=== PATIENT | female | born 1930 | race Caucasian/White ===

== ENCOUNTER 2016-08-28 17:47 | Emergency (ER) | payer MEDICARE, OTHER ==
[2016-08-28 19:20] LABS: BASO % 0.8 % (0-6); EOS % 1.2 % (0-6); GRAN % 59.6 % (47-80); HEMATOCRIT 36.8 % (35.0-47.0); HEMOGLOBIN 11.8 gm/dl (11.6-16.0); LYMPH % 29.3 % (16-45); MEAN CELL VOLUME 84.8 fl (81-97); MEAN CORPUSCULAR HEMOGLOBIN 27.2 pg (27-33); MEAN CORPUSCULAR HGB CONC 32.1 g/dl (32-36); MEAN PLATELET VOLUME 9.9 fl (7.4-10.4); MONO % 9.1 % (0-9); PLATELET COUNT 230 K/uL (130-400); RED BLOOD COUNT 4.34 M/uL (3.80-5.40); RED CELL DISTRIBUTION WIDTH 14.2 % (11.5-14.5); WHITE BLOOD COUNT W/O DIFF 8.4 K/uL (4.2-12.2)
[2016-08-28 19:29] LABS: ALB/GLOB RATIO 1.5 (1.1-1.8); ALBUMIN 4.4 gm/dL (3.5-5.0); ALKALINE PHOSPHATASE 73 U/L (38-126); ALT/SGPT 31 U/L (9-52); AST/SGOT 20 U/L (14-36); BILIRUBIN,TOTAL 0.53 mg/dL (0.2-1.3); BLOOD UREA NITROGEN 14 mg/dL (7-17); CREATININE 0.6 mg/dL (0.52-1.04); EST GLOMERULAR FILTRATION RATE > 60 ml/min; GLUCOSE,RANDOM 86 mg/dL (70-110); TOTAL PROTEIN 7.4 gm/dL (6.3-8.2)
--- NOTE | 2016-08-28 21:05 | Emergency Department Record ---
History of Present Illness - General Chief complaint: Edema Stated complaint: BRUISING/SWELLING Time Seen by Provider: 08/28/16 18:30 Source: Patient Mode of Arrival: Wheelchair Limitations: No limitations - History of Present Illness Initial comments: pt found her l foot to be bruised and is unsure how it happened. her r foot has been swelling as well. pt also states her pneumonia is much better MD Complaint: Extremity pain, Extremity swelling Onset/Timin -: Month(s) History of Same: Yes Improves with: Nothing Worsens with: Weight bearing - Related Data Home Medications Medication Instructions Recorded Confirmed Last Taken Amlodipine Besylate [Norvasc] 5 mg PO BID 11/17/13 08/28/16 08/28/16 Digoxin [Lanoxin] 125 mcg PO DAILY 11/17/13 08/28/16 08/28/16 Levothyroxine Sodium [Synthroid] 25 mcg PO DAILYTHY 11/17/13 08/28/16 08/28/16 Lisinopril [Prinivil] 20 mg PO BID 11/17/13 08/28/16 08/28/16 Memantine HCl [Namenda Xr] 28 mg PO DAILY 11/17/13 08/28/16 08/28/16 Meloxicam [Mobic] 15 mg PO DAILY 03/05/14 08/28/16 08/28/16 Metoprolol Succinate [Toprol Xl] 100 mg PO DAILY 02/15/15 08/28/16 08/28/16 Aspirin [Aspir-Low] 81 mg PO DAILY 08/28/16 08/28/16 08/28/16 Allergies Allergy/AdvReac Type Severity Reaction Status Date / Time erythromycin base AdvReac DIARRHEA Verified 01/06/15 14:22 [Erythromycin Base] morphine AdvReac ALTERED Verified 01/06/15 14:22 MENTAL STATUS Travel Screening - Travel/Exposure Within Last 30 Days Have you traveled within the last 30 days?: No - Travel/Exposure Within Last Year Have you traveled outside the [place] in the last year?: No - Additonal Travel Details Have you been exposed to anyone with a communicable illness?: No - Travel Symptoms Symptom Screening: None Review of Systems Reviewed: No additional complaints except as noted below Constitutional: Reports: As per HPI. Denies: Chills, Fever, Malaise, Night sweats, Weakness, Weight change Eyes: Reports: As per HPI. Denies: Eye discharge, Eye pain, Photophobia, Vision change ENT: Reports: As per HPI. Denies: Congestion, Dental pain, Ear pain, Epistaxis , Hearing loss, Throat pain Respiratory: Reports: As per HPI. Denies: Cough, Dyspnea, Hemoptysis, Stridor, Wheezes Cardiovascular: Reports: As per HPI. Denies: Arrhythmia, Chest pain, Dyspnea on exertion, Edema, Murmurs, Orthopnea, Palpitations, Paroxysmal nocturnal dyspnea, Rheumatic Fever, Syncope Endocrine: Reports: As per HPI. Denies: Fatigue, Heat or cold intolerance, Polydipsia, Polyuria Gastrointestinal: Reports: As per HPI. Denies: Abdominal pain, Constipation, Diarrhea, Hematemesis, Hematochezia, Melena, Nausea, Vomiting Genitourinary: Reports: As per HPI. Denies: Abnormal menses, Discharge, Dyspareunia, Dysuria, Frequency, Hematuria, Incontinence, Retention, Urgency Musculoskeletal: Reports: As per HPI. Denies: Arthralgia, Back pain, Gout, Joint swelling, Myalgia, Neck pain Skin: Reports: As per HPI. Denies: Bruising, Change in color, Change in hair/ nails, Lesions, Pruritus, Rash Neurological: Reports: As per HPI. Denies: Abnormal gait, Confusion, Headache, Numbness, Paresthesias, Seizure, Tingling, Tremors, Vertigo, Weakness Psychiatric: Reports: As per HPI. Denies: Anxiety, Auditory hallucinations, Depression, Homicidal thoughts, Suicidal thoughts, Visual hallucinations Hematological/Lymphatic: Reports: As per HPI. Denies: Anemia, Blood Clots, Easy bleeding, Easy bruising, Swollen glands Past Medical History - SOCIAL HISTORY Smoking Status: Former smoker Alcohol Use: None Drug Use: None - RESPIRATORY Hx Respiratory Disorders: Yes Hx COPD: Yes Hx Pneumonia: Yes (admitted 11/09/13) - CARDIOVASCULAR Hx Cardio Disorders: Yes Hx Chest Pain: Yes Hx Hypertension: Yes Hx Irregular Heartbeat: Yes (a-fib) Comment:: leaky valve - NEURO Hx Neuro Disorders: Yes Hx Dementia: Yes - GI Hx GI Disorders: Yes Hx Diverticulitis: Yes - Hx Genitourinary Disorders: Yes Hx UTI: Yes - ENDOCRINE Hx Endocrine Disorders: Yes Hx Diabetes: Yes (hypoglycemia) Hx Thyroid Disease: Yes - MUSCULOSKELETAL Hx Musculoskeletal Disorders: No - PSYCH Hx Psych Problems: No - HEMATOLOGY/ONCOLOGY Hx Hematology/Oncology Disorders: Yes Hx Anemia: Yes Family Medical History Any Significant Family History?: No Hx Dementia: Brother/Sister *Dementia Comment: Brother Hx HTN: Brother/Sister Physical Exam - General General Appearance: Alert, Oriented x3, Cooperative, Mild distress - Head Head exam: Normal inspection - Eye Eye exam: Normal appearance, PERRL, EOMI Pupils: Normal accommodation - ENT ENT exam: Normal exam, Mucous membranes moist, Normal external ear exam, Normal orophraynx, TM's normal bilaterally Ear exam: Normal external inspection. negative: External canal tenderness Nasal Exam: Normal inspection. negative: Discharge, Sinus tenderness Mouth exam: Normal external inspection, Tongue normal Teeth exam: Normal inspection. negative: Dental caries Throat exam: Normal inspection. negative: Tonsillar erythema, Tonsillar exudate - Neck Neck exam: Normal inspection, Full ROM. negative: Tenderness - Respiratory Respiratory exam: Normal lung sounds bilaterally, Other (scattered crackles). negative: Respiratory distress - Cardiovascular Cardiovascular Exam: Regular rate, Normal rhythm, Normal heart sounds - GI/Abdominal GI/Abdominal exam: Soft, Normal bowel sounds. negative: Tenderness - Rectal Rectal exam: Deferred - exam: Deferred - Extremities Extremities exam: Normal inspection, Full ROM, Normal capillary refill, Pedal edema, Tenderness Image of Feet: 1 - ecchymosis 2 - pedal edema - Back Back exam: Reports: Normal inspection, Full ROM. Denies: Muscle spasm, Rash noted, Tenderness - Neurological Neurological exam: Alert, CN II-XII intact, Normal gait, Oriented X3 - Psychiatric Psychiatric exam: Normal affect, Normal mood - Skin Skin exam: Dry, Intact, Normal color, Warm Course Vital Signs 08/28/16 08/28/16 18:14 20:32 Temperature 98.0 F 98.0 F Pulse Rate 58 L Pulse Rate [ 63 Pulse Ox Probe] Respiratory 18 18 Rate Blood Pressure 178/79 Blood Pressure 148/66 [Left Arm] Pulse Ox 100 97 Medical Decision Making - Lab Data Result diagrams: 08/28/16 18:34 08/28/16 18:34 Lab Results 08/28/16 08/28/16 Range/Units 18:34 18:34 WBC 8.4 (4.2-12.2) K/uL RBC 4.34 (3.80-5.40) M/uL Hgb 11.8 (11.6-16.0) gm/dl Hct 36.8 (35.0-47.0) % MCV 84.8 (81-97) fl MCH 27.2 (27-33) pg MCHC 32.1 (32-36) g/dl RDW 14.2 (11.5-14.5) % Plt Count 230 (130-400) K/uL MPV 9.9 (7.4-10.4) fl Gran % 59.6 (47-80) % Lymphocytes % 29.3 (16-45) % Monocytes % 9.1 H (0-9) % Eosinophils % 1.2 (0-6) % Basophils % 0.8 (0-6) % Sodium 129 L (136-145) mmol/L Potassium 4.3 (3.5-5.1) mmol/L Chloride 94 L (98-107) mmol/L Carbon Dioxide 25.0 (22-30) mmol/L Anion Gap 10.0 (7-16) BUN 14 (7-17) mg/dL Creatinine 0.6 (0.52-1.04) mg/dL Estimated GFR > 60 ml/min Random Glucose 86 (70-110) mg/dL Calcium 9.2 (8.5-10.1) mg/dL Total Bilirubin 0.53 (0.2-1.3) mg/dL AST 20 (14-36) U/L ALT 31 (9-52) U/L Alkaline Phosphatase 73 (38-126) U/L Total Protein 7.4 (6.3-8.2) gm/dL Albumin 4.4 (3.5-5.0) gm/dL Globulin 3.0 (1.4-4.8) gm/dL Albumin/Globulin Ratio 1.5 (1.1-1.8) Disposition Disposition: Discharge Clinical Impression: Pedal edema Contusion Qualifiers: Encounter type: initial encounter Contusion area: foot Laterality: right Qualified Code(s): S90.31XA - Contusion of right foot, initial encounter Disposition: Home, Self-Care Condition: (1) Good Instructions: Leg Edema (ED), Contusion in Adults (ED) Additional Instructions: follow up with family doctor. return sooner if worse. elevate feet. warm soaks r foot Forms: Patient Portal Access
== END 2016-08-28 21:18 | disposition home or self-care (01) ==
LOC: ER 17:47
DX: S90.31XA Contusion of right foot, initial encounter (principal); R60.0 Localized edema; I48.91 Unspecified atrial fibrillation; J44.9 Chronic obstructive pulmonary disease, unspecified; I10 Essential (primary) hypertension; Z87.891 Personal history of nicotine dependence; X58.XXXA Exposure to other specified factors, initial encounter
CPT/HCPCS: 80053; 85025; 99283; 99284

== ENCOUNTER 2016-12-22 13:01 | Emergency (ER) | payer MEDICARE, OTHER ==
--- NOTE | 2016-12-22 13:15 | Emergency Department Record ---
History of Present Illness - General Chief complaint: Weakness Stated complaint: WEAKNESS Time Seen by Provider: 12/22/16 13:08 Source: Patient, Family Mode of Arrival: Wheelchair Limitations: No limitations - History of Present Illness Initial comments: 86 yo female presents not feeling well for several weeks. She feels tired and weak all over. She feels short of breath. She denies any chest pain. She reports a recent admission to [facility] for atrial fibrillation. Her son reports that she gets light headed and has passed out in the morning with slow heart rate since DC. She has decreased appetite. No vomiting or diarrhea. Dr Baeza is her PCP. Her heart doctor is through [facility] in [place]. The DC papers note the patient had Atrial Fibrillation, Pneumonia, CHF, Hyponatremia , Hypothyroidism. Admit 11/18 and DC on 11/24 MD Complaint: Generalized weakness Location: Generalized Consistency: Constant Improves with: None Worsens with: Exertion Associated Symptoms: Loss of appetite, Shortness of breath - Marcie Coma Scale Eye Response: (4) Open spontaneously Motor Response: (6) Obeys commands Verbal Response: (5) Oriented Marcie Total: 15 - Related Data Home Medications Medication Instructions Recorded Confirmed Last Taken Acetaminophen [Pain Relief] 1,000 mg PO QHS 12/22/16 12/22/16 Unknown Diltiazem HCl [Diltiazem ER] 180 mg PO DAILY 12/22/16 12/22/16 Unknown Hydrochlorothiazide 12.5 mg PO DAILY 12/22/16 12/22/16 Unknown Montelukast Sodium [Singulair] 10 mg PO QAM 12/22/16 12/22/16 Unknown Allergies Allergy/AdvReac Type Severity Reaction Status Date / Time erythromycin base AdvReac DIARRHEA Verified 12/22/16 13:13 [Erythromycin Base] morphine AdvReac ALTERED Verified 12/22/16 13:13 MENTAL STATUS Review of Systems Constitutional: Reports: Malaise, Weakness. Denies: Chills, Fever, Night sweats Eyes: Denies: Eye discharge, Eye pain, Photophobia ENT: Denies: Congestion, Throat pain Respiratory: Reports: Dyspnea. Denies: Hemoptysis, Stridor, Wheezes Cardiovascular: Reports: Palpitations, Syncope. Denies: Chest pain Endocrine: Reports: Fatigue Gastrointestinal: Denies: Abdominal pain, Diarrhea, Nausea, Vomiting Genitourinary: Denies: Dyspareunia, Dysuria, Urgency Musculoskeletal: Denies: Arthralgia, Back pain, Myalgia, Neck pain Skin: Denies: Bruising, Change in color, Rash Neurological: Reports: Weakness. Denies: Confusion, Headache, Numbness, Tingling, Tremors Psychiatric: Reports: Anxiety Hematological/Lymphatic: Denies: Blood Clots, Easy bleeding, Easy bruising Past Medical History - SOCIAL HISTORY Smoking Status: Former smoker Drug Use: None - RESPIRATORY Hx Respiratory Disorders: Yes Hx COPD: Yes Hx Pneumonia: Yes (admitted 11/09/13) - CARDIOVASCULAR Hx Cardio Disorders: Yes Hx Chest Pain: Yes Hx Hypertension: Yes Hx Irregular Heartbeat: Yes (a-fib) Comment:: leaky valve - NEURO Hx Neuro Disorders: Yes Hx Dementia: Yes - GI Hx GI Disorders: Yes Hx Diverticulitis: Yes - Hx Genitourinary Disorders: Yes Hx UTI: Yes - ENDOCRINE Hx Endocrine Disorders: Yes Hx Diabetes: Yes (hypoglycemia) Hx Thyroid Disease: Yes - MUSCULOSKELETAL Hx Musculoskeletal Disorders: No - PSYCH Hx Psych Problems: No - HEMATOLOGY/ONCOLOGY Hx Hematology/Oncology Disorders: Yes Hx Anemia: Yes Family Medical History Hx Dementia: Brother/Sister *Dementia Comment: Brother Hx HTN: Brother/Sister Physical Exam - General General Appearance: Alert, Oriented x3, Cooperative, No acute distress Limitations: No limitations - Head Head exam: Atraumatic, Normocephalic, Normal inspection - Eye Eye exam: Normal appearance. negative: Conjunctival injection, Periorbital swelling - ENT ENT exam: Normal exam, Mucous membranes moist Ear exam: Normal external inspection Nasal Exam: Normal inspection Mouth exam: Normal external inspection - Neck Neck exam: Normal inspection, Full ROM. negative: Tenderness - Respiratory Respiratory exam: Normal lung sounds bilaterally. negative: Respiratory distress - Cardiovascular Cardiovascular Exam: Regular rate, Normal rhythm, Normal heart sounds Peripheral Pulses: 2+: Radial (R), Radial (L) - GI/Abdominal GI/Abdominal exam: Soft. negative: Distended, Guarding, Rebound, Rigid, Tenderness - Rectal Rectal exam: Deferred - exam: Deferred - Extremities Extremities exam: Normal inspection, Full ROM, Normal capillary refill. negative: Pedal edema, Tenderness - Back Back exam: Reports: Normal inspection, Full ROM. Denies: CVA tenderness (R), CVA tenderness (L), Muscle spasm, Rash noted, Tenderness - Neurological Neurological exam: Alert, Normal gait, Oriented X3. negative: Altered, Motor sensory deficit - Psychiatric Psychiatric exam: Normal affect, Normal mood - Skin Skin exam: Dry, Intact, Normal color, Warm. negative: Cyanosis, Diaphoretic, Erythema Course - Reevaluation(s) Reevaluation #1: Vitals reviewed HR currently 77 12/22/16 13:22 EKG NSR, rate 54, intervals normal, axis L, ST no acute changes (artifact is lead V5) No changes from prior. 12/22/16 13:30 12/22/16 13:31 EKG #2 13:28 Sinus Rubén at 54, intervals GA 228, [place] L, St no acute changes, PVC. 12/22/16 13:37 No changes 02/15/15 12/22/16 13:38 The labs were reviewed No acute changes THe BNP is elevated but less than prior readings The CXW was negative The patient HR has been in the 55-60 range She is comfortable and ready for DC home I will try to contact her PCP 12/22/16 14:59 12/22/16 15:11 Dr Baeza called and message left The patient is feeling much better with HR of 62 Will hold the evening Toprol dose and then decrease by 1/[address] Baeza She is not in afib, no hypoxia, no edema, no CHF on CXR DC stable with family Medical Decision Making - Lab Data Result diagrams: 12/22/16 13:20 12/22/16 13:20 Disposition Disposition: Discharge Clinical Impression: Weakness, Bradycardia Disposition: Home, Self-Care Condition: (1) Good Instructions: Weakness (ED) Additional Instructions: Call Dr Baeza tomorrow for close follow up Return if worse, short of breath, any new concerns Hold tonights Toprol XL dose Starting tomorrow take 1/2 tablet (50mg at night) Forms: Patient Portal Access Time of Disposition: 15:01 Quality - Quality Measures Quality Measures: N/A - Blood Pressure Screening Does Patient Have Any of the Following: No Blood Pressure Classification: Hypertensive Reading Systolic Measurement: 172 Diastolic Measurement: 58 Screening for High Blood Pressure: < Pre-Hypertensive BP, F/U Documented > [ G8950] Pre-Hypertensive Follow-up Interventions: Referral to alternative/primary care provider.
[2016-12-22 13:27] LABS: BASO % 0.8 % (0-6); EOS % 0.7 % (0-6); GRAN % 44.5 % (47-80); HEMATOCRIT 37.8 % (35.0-47.0); HEMOGLOBIN 12.2 gm/dl (11.6-16.0); LYMPH % 45.4 % (16-45); MEAN CELL VOLUME 82.9 fl (81-97); MEAN CORPUSCULAR HEMOGLOBIN 26.8 pg (27-33); MEAN CORPUSCULAR HGB CONC 32.3 g/dl (32-36); MEAN PLATELET VOLUME 9.9 fl (7.4-10.4); MONO % 8.6 % (0-9); PLATELET COUNT 236 K/uL (130-400); RED BLOOD COUNT 4.56 M/uL (3.80-5.40); RED CELL DISTRIBUTION WIDTH 14.2 % (11.5-14.5); WHITE BLOOD COUNT W/O DIFF 7.5 K/uL (4.2-12.2)
[2016-12-22 13:58] LABS: ALB/GLOB RATIO 1.7 (1.1-1.8); ALBUMIN 4.6 gm/dL (3.5-5.0); ALKALINE PHOSPHATASE 61 U/L (38-126); ALT/SGPT 38 U/L (9-52); ANION GAP 12.2 (7-16); AST/SGOT 17 U/L (14-36); BILIRUBIN,TOTAL 0.64 mg/dL (0.2-1.3); BLOOD UREA NITROGEN 12 mg/dL (7-17); CARBON DIOXIDE 24.8 mmol/L (22-30); CREATINE PHOSPHOKINASE 28 U/L (30-135); CREATININE 0.8 mg/dL (0.52-1.04); EST GLOMERULAR FILTRATION RATE > 60 ml/min; GLUCOSE,RANDOM 137 mg/dL (70-110); TOTAL PROTEIN 7.3 gm/dL (6.3-8.2)
[2016-12-22 14:07] LABS: CKMB 0.6 ug/L (0-6)
[2016-12-22 14:10] LABS: TROPONIN I < 0.012 ng/mL (0.00-0.034)
[2016-12-22 14:25] LABS: THYROID STIMULATING HORMONE 1.66 uIU/ml (0.465-4.68)
--- NOTE | 2016-12-23 07:48 | RADIOLOGY REPORT ---
EXAM: CHEST, TWO VIEWS HISTORY: SHORTNESS OF BREATH. TECHNIQUE: Upright AP and lateral views of the chest were obtained. Comparison: Two view chest 10/01/15. FINDINGS: Stable heart size. The lungs again appear hyperinflated suggesting COPD. No definite acute infiltrate is seen and no pleural effusion or pneumothorax evident. Apical pleural thickening bilaterally as before. Surgical clips in the region of the EG junction as before. IMPRESSION: 1. HYPERINFLATION CONSISTENT WITH COPD. NO DEFINITE ACUTE INFILTRATE IS SEEN. 2. SURGICAL CLIPS IN THE REGION OF THE EG JUNCTION BEFORE. JOB NUMBER: [id number] MTDD
== END 2016-12-22 15:26 | disposition home or self-care (01) ==
LOC: ER 13:01
DX: R00.1 Bradycardia, unspecified (principal); R53.1 Weakness; R06.02 Shortness of breath; I10 Essential (primary) hypertension; Z87.891 Personal history of nicotine dependence
CPT/HCPCS: 71020; 80053; 80162; 82550; 82553; 83880; 84443; 84484; 85025; 93005; 93010; 99284

== ENCOUNTER 2017-02-01 13:54 | Emergency (ER) | payer MEDICARE, OTHER, BC ==
--- NOTE | 2017-02-01 14:14 | Emergency Department Record ---
History of Present Illness - General Chief complaint: Weakness Stated complaint: WEAKNESS,ELEVATED HEART RATE Time Seen by Provider: 02/01/17 14:12 Source: Patient Mode of Arrival: Wheelchair Limitations: No limitations - History of Present Illness Initial comments: 86 yo female presents with palpitations today. She has a history of prior atrial fibrillations. She has not felt well for a week. She is feeling tired and shaky. He feels her heart pound at times. No syncope but she has gotten light headed at times. No cough or fever. No nausea, vomiting or diarrhea. No chest pain. She does have acid reflux at times. Her PCP is Dr Baeza. Onset/Timin -: Week(s) Location: Generalized Severity: Mild Consistency: Intermittent Improves with: None Worsens with: None Associated Symptoms: Shortness of breath, Other - Marcie Coma Scale Eye Response: (4) Open spontaneously Motor Response: (6) Obeys commands Verbal Response: (5) Oriented Marcie Total: 15 - Related Data Home Medications Medication Instructions Recorded Confirmed Last Taken Amlodipine Besylate [Norvasc] 5 mg PO BID 02/01/17 02/01/17 02/01/17 Meloxicam 15 mg PO DAILY 02/01/17 02/01/17 02/01/17 Rivaroxaban [Xarelto] 20 mg PO BID 02/01/17 02/01/17 02/01/17 Allergies Allergy/AdvReac Type Severity Reaction Status Date / Time erythromycin base AdvReac DIARRHEA Verified 02/01/17 14:10 [Erythromycin Base] morphine AdvReac ALTERED Verified 02/01/17 14:10 MENTAL STATUS Travel Screening - Travel/Exposure Within Last 30 Days Have you traveled within the last 30 days?: No Review of Systems Constitutional: Reports: Malaise, Weakness. Denies: Chills Eyes: Denies: Eye discharge, Eye pain, Photophobia ENT: Denies: Congestion, Throat pain Respiratory: Reports: Dyspnea. Denies: Cough, Hemoptysis, Stridor, Wheezes Cardiovascular: Reports: Dyspnea on exertion, Palpitations. Denies: Chest pain , Edema, Syncope (Near) Endocrine: Reports: Fatigue. Denies: Polydipsia, Polyuria Gastrointestinal: Denies: Abdominal pain, Diarrhea, Nausea, Vomiting Genitourinary: Denies: Dysuria, Urgency Musculoskeletal: Denies: Arthralgia, Back pain, Joint swelling, Myalgia Skin: Denies: Bruising, Change in color, Rash Neurological: Reports: Tremors, Weakness. Denies: Abnormal gait, Confusion, Headache, Numbness, Tingling, Vertigo Psychiatric: Reports: Anxiety Hematological/Lymphatic: Denies: Anemia, Blood Clots, Easy bleeding, Easy bruising, Swollen glands Past Medical History - SOCIAL HISTORY Smoking Status: Former smoker Alcohol Use: None Drug Use: None - RESPIRATORY Hx Respiratory Disorders: Yes Hx COPD: Yes Hx Pneumonia: Yes (admitted 11/09/13) - CARDIOVASCULAR Hx Cardio Disorders: Yes Hx Chest Pain: Yes Hx Hypertension: Yes Hx Irregular Heartbeat: Yes (a-fib) Comment:: leaky valve - NEURO Hx Neuro Disorders: Yes Hx Dementia: Yes - GI Hx GI Disorders: Yes Hx Diverticulitis: Yes - Hx Genitourinary Disorders: Yes Hx UTI: Yes - ENDOCRINE Hx Endocrine Disorders: Yes Hx Diabetes: Yes (hypoglycemia) Hx Thyroid Disease: Yes - MUSCULOSKELETAL Hx Musculoskeletal Disorders: No - PSYCH Hx Psych Problems: No - HEMATOLOGY/ONCOLOGY Hx Hematology/Oncology Disorders: Yes Hx Anemia: Yes Family Medical History Any Significant Family History?: Yes Hx Dementia: Brother/Sister *Dementia Comment: Brother Hx HTN: Brother/Sister Physical Exam - General General Appearance: Alert, Oriented x3, Cooperative, No acute distress Limitations: No limitations - Head Head exam: Atraumatic, Normocephalic, Normal inspection - Eye Eye exam: Normal appearance, PERRL. negative: Conjunctival injection, Periorbital swelling, Scleral icterus - ENT ENT exam: Normal exam, Mucous membranes moist Ear exam: Normal external inspection Nasal Exam: Normal inspection Mouth exam: Normal external inspection - Neck Neck exam: Normal inspection. negative: Lymphadenopathy - Respiratory Respiratory exam: Normal lung sounds bilaterally. negative: Respiratory distress - Cardiovascular Cardiovascular Exam: Regular rate, Normal rhythm, Normal heart sounds Peripheral Pulses: 2+: Radial (R), Radial (L) - GI/Abdominal GI/Abdominal exam: Soft. negative: Distended, Guarding, Rebound, Rigid, Tenderness - Rectal Rectal exam: Deferred - exam: Deferred - Extremities Extremities exam: Normal inspection, Full ROM, Normal capillary refill, Pedal edema (mild bilateral ). negative: Joint swelling, Tenderness - Back Back exam: Reports: Normal inspection, Full ROM. Denies: CVA tenderness (R), CVA tenderness (L), Muscle spasm, Rash noted, Tenderness - Neurological Neurological exam: Alert, CN II-XII intact, Oriented X3. negative: Altered, Motor sensory deficit - Psychiatric Psychiatric exam: Anxious - Skin Skin exam: Dry, Intact, Normal color, Warm Course Vital Signs 02/01/17 14:05 Temperature 97.5 F L Pulse Rate 79 Respiratory 20 Rate Blood Pressure 168/83 Pulse Ox 99 - Reevaluation(s) Reevaluation #1: EKG 14:12 sinus rhythm rate of 75 intervals SD 202, NS T changes without changes from 12/22/16 02/01/17 14:29 02/01/17 15:18 The labs were reviewed No acute changes on the CBC, CMP,Troponin, BNP, or TSH UA is pending. The patient is resting comfortably. 02/01/17 16:00 The patient reports she is ready for DC She has remained asymptomatic without any ectopy She has not had any atrial fib or arrhythmia will here in the ED Medical Decision Making - Lab Data Result diagrams: 02/01/17 14:34 02/01/17 14:34 Disposition Disposition: Discharge Clinical Impression: Palpitations Disposition: Home, Self-Care Condition: (1) Good Instructions: Heart Palpitations (ED) Additional Instructions: Call your doctors for close follow up this week Return to the ER if worse, any irregular heart rates or new concerns or symptoms Rest and stay well hydrated. Forms: Patient Portal Access Time of Disposition: 16:02 Quality - Quality Measures Quality Measures: N/A - Blood Pressure Screening Does Patient Have Any of the Following: No Blood Pressure Classification: Hypertensive Reading Systolic Measurement: 151 Diastolic Measurement: 106 Screening for High Blood Pressure: < Pre-Hypertensive BP, F/U Documented > [ G8950] Pre-Hypertensive Follow-up Interventions: Referral to alternative/primary care provider.
[2017-02-01 14:40] LABS: BASO % 0.7 % (0-6); EOS % 0.7 % (0-6); GRAN % 54.3 % (47-80); HEMATOCRIT 36.5 % (35.0-47.0); HEMOGLOBIN 11.9 gm/dl (11.6-16.0); LYMPH % 37.8 % (16-45); MEAN CELL VOLUME 81.5 fl (81-97); MEAN CORPUSCULAR HEMOGLOBIN 26.6 pg (27-33); MEAN CORPUSCULAR HGB CONC 32.6 g/dl (32-36); MEAN PLATELET VOLUME 9.4 fl (7.4-10.4); MONO % 6.5 % (0-9); PLATELET COUNT 276 K/uL (130-400); RED BLOOD COUNT 4.48 M/uL (3.80-5.40); RED CELL DISTRIBUTION WIDTH 14.6 % (11.5-14.5); WHITE BLOOD COUNT W/O DIFF 7.5 K/uL (4.2-12.2)
[2017-02-01 14:51] LABS: INR 1.36; PARTIAL THROMBOPLASTIN TIME 56.9 SECONDS (24.5-39.1); PROTHROMBIN TIME (PATIENT) 14.7 SECONDS (9.5-12.1)
[2017-02-01 15:05] LABS: ALB/GLOB RATIO 1.4 (1.1-1.8); ALBUMIN 4.3 g/dL (4.0-5.0); ALKALINE PHOSPHATASE 60 U/L (35-104); ALT/SGPT 12 U/L (<33); AST/SGOT 16 U/L (10.0-35.0); BLOOD UREA NITROGEN 12 mg/dL (8-23); CREATININE 0.7 mg/dL (0.5-0.9); EST GLOMERULAR FILTRATION RATE > 60 mL/min; GLUCOSE,RANDOM 121 mg/dL (74-109); THYROID STIMULATING HORMONE 1.95 uIU/mL (0.270-4.20); TOTAL PROTEIN 7.4 g/dL (6.6-8.7)
[2017-02-01 15:14] LABS: TROPONIN I < 0.30 ng/mL (0.00-0.300)
--- NOTE | 2017-02-02 16:04 | RADIOLOGY REPORT ---
EXAM: CHEST 2 VIEWS HISTORY: PALPITATIONS. SHORTNESS OF BREATH. GENERALIZED WEAKNESS. TECHNIQUE: Upright PA and lateral views of the chest are obtained. COMPARISON: Two-view chest radiographic examination dated 12/22/2016. FINDINGS: The heart is not enlarged and the pulmonary vasculature is nondilated. The thoracic aorta is tortuous and atherosclerotic. Surgical clips are again noted at the gastroesophageal junction level. The lungs remain hyperinflated consistent with COPD. No convincing new confluent airspace opacity is seen nor is there costophrenic angle blunting or pneumothorax. Biapical pleural and parenchymal scarring redemonstrated. There are degenerative changes of the visualized spine with S-shaped scoliosis with dextroconvex curvature centered at the mid to lower thoracic levels and levoconvex curvature centered at the upper lumbar levels. IMPRESSION: 1. NO EVIDENCE OF ACUTE CARDIOPULMONARY DISEASE WITHOUT CHANGE SINCE 2016. 2. HYPERINFLATION OF THE LUNG CONSISTENT WITH COPD. JOB NUMBER: [id number] MTDD
== END 2017-02-01 16:21 | disposition home or self-care (01) ==
LOC: ER 13:54
DX: I48.2 Chronic atrial fibrillation (principal); R42 Dizziness and giddiness; R53.1 Weakness; J44.9 Chronic obstructive pulmonary disease, unspecified; I10 Essential (primary) hypertension; I25.2 Old myocardial infarction; Z87.891 Personal history of nicotine dependence
CPT/HCPCS: 71020; 80053; 83735; 83880; 84443; 84484; 85025; 85610; 85730; 93005; 93010; 99284

== ENCOUNTER 2017-02-18 12:12 | Emergency (ER) | payer MEDICARE, OTHER, BC ==
--- NOTE | 2017-02-18 12:25 | Emergency Department Record ---
History of Present Illness - General Chief complaint: Weakness Stated complaint: WEAKNESS Time Seen by Provider: 02/18/17 12:24 Source: Patient Mode of Arrival: EMS Limitations: No limitations - History of Present Illness Initial comments: The patient is here due to not feeling well for about 2 days. She states she has felt weak all over and has had a lack of energy with a mild cough. She denies any CP, SOB, BENJAMIN, AP, dysuria, back pain or any recent trauma or falls. She also denies any new medicines prescribed to her. The patient states she has not been eating very well recently but did eat well today. 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 MD Complaint: Generalized weakness Onset/Timin -: Days(s) Location: Generalized Improves with: None Worsens with: None Associated Symptoms: Denies other symptoms - Marcie Coma Scale Eye Response: (4) Open spontaneously Motor Response: (6) Obeys commands Verbal Response: (5) Oriented Marcie Total: 15 - Related Data Allergies Allergy/AdvReac Type Severity Reaction Status Date / Time erythromycin base AdvReac DIARRHEA Verified 02/18/17 12:20 [Erythromycin Base] morphine AdvReac ALTERED Verified 02/18/17 12:20 MENTAL STATUS Travel Screening - Travel/Exposure Within Last 30 Days Have you traveled within the last 30 days?: No Review of Systems Constitutional: Reports: Malaise. Denies: Chills, Fever Eyes: Denies: Eye discharge ENT: Denies: Congestion Respiratory: Denies: Cough, Dyspnea Cardiovascular: Denies: Arrhythmia, Chest pain Endocrine: Reports: Fatigue Past Medical History - SOCIAL HISTORY Smoking Status: Former smoker Alcohol Use: None Drug Use: None - RESPIRATORY Hx Respiratory Disorders: Yes Hx COPD: Yes Hx Pneumonia: Yes (admitted 11/09/13) - CARDIOVASCULAR Hx Cardio Disorders: Yes Hx Chest Pain: Yes Hx Edema: Yes Hx Hypertension: Yes Hx Irregular Heartbeat: Yes (a-fib) Comment:: leaky valve - NEURO Hx Neuro Disorders: Yes Hx Dementia: Yes - GI Hx GI Disorders: Yes Hx Diverticulitis: Yes - Hx Genitourinary Disorders: Yes Hx UTI: Yes - ENDOCRINE Hx Endocrine Disorders: Yes Hx Diabetes: Yes (hypoglycemia) Hx Thyroid Disease: Yes - MUSCULOSKELETAL Hx Musculoskeletal Disorders: No - PSYCH Hx Psych Problems: No - HEMATOLOGY/ONCOLOGY Hx Hematology/Oncology Disorders: Yes Hx Anemia: Yes Family Medical History Any Significant Family History?: Yes Hx Dementia: Brother/Sister *Dementia Comment: Brother Hx HTN: Brother/Sister Physical Exam - General General Appearance: Alert, Cooperative, No acute distress - Head Head exam: Atraumatic, Normocephalic, Normal inspection - Eye Eye exam: Normal appearance, PERRL, EOMI - ENT Throat exam: Normal inspection. negative: Tonsillar erythema, Tonsillar exudate - Neck Neck exam: Normal inspection, Full ROM. negative: Tenderness - Respiratory Respiratory exam: Normal lung sounds bilaterally. negative: Respiratory distress - Cardiovascular Cardiovascular Exam: Regular rate, Normal rhythm, Normal heart sounds - GI/Abdominal GI/Abdominal exam: Soft, Normal bowel sounds. negative: Tenderness - Extremities Extremities exam: Normal inspection, Full ROM, Normal capillary refill. negative: Tenderness - Neurological Neurological exam: Alert, Normal gait. negative: Abnormal gait, Motor sensory deficit, Oriented X3 (The patient is oriented to name, place, recent events, and age but is not sure of the date or day. ) Course Vital Signs 02/18/17 12:16 Temperature 97.8 F Pulse Rate 80 Respiratory 20 Rate Blood Pressure 132/79 Pulse Ox 99 - Reevaluation(s) Reevaluation #1: The patient is doing better. She is up walking with no difficulty or unsteadiness or lightheadedness. She denies any pain, BENJAMIN, nausea, or weakness. I did discuss the issues with the patient's son and since the patient appears to be back to normal we will discharge her to home. The patient's son is to talk with their home care people about coming to the home more frequently. 02/18/17 13:38 02/18/17 13:50 02/18/17 13:55 Medical Decision Making - Data Complexity MDM Data: Labs Ordered and/or Reviewed, X-Ray Ordered and/or Reviewed, EKG Ordered and/or Reviewed - Lab Data Result diagrams: 02/18/17 12:35 02/18/17 12:35 - EKG Data -: EKG Interpreted by Me EKG: No Acute Changes, Unchanged From Previous - Radiology Data Radiology results: Report reviewed (CXR: No acute process Head CT: Age appropriate atrophy, no acute process.) Disposition Disposition: Discharge Clinical Impression: Weakness generalized Disposition: Home, Self-Care Condition: (1) Good Instructions: Weakness (ED) Additional Instructions: Please continue your regular medicines and see your PCP next week if not better. Return to the ER for any problems or new issues. Forms: Patient Portal Access Time of Disposition: 13:56 Quality - Quality Measures Quality Measures: N/A - Blood Pressure Screening View Details: Yes Does Patient Have Any of the Following: No Blood Pressure Classification: Pre-Hypertensive BP Reading Systolic Measurement: 132 Diastolic Measurement: 79 Screening for High Blood Pressure: < Pre-Hypertensive BP, F/U Documented > [ G8950] Pre-Hypertensive Follow-up Interventions: Referral to alternative/primary care provider.
[2017-02-18 12:50] LABS: BASO % 0.5 % (0-6); EOS % 0.4 % (0-6); GRAN % 71.7 % (47-80); HEMATOCRIT 37.2 % (35.0-47.0); MEAN CORPUSCULAR HEMOGLOBIN 26.1 pg (27-33); MEAN CORPUSCULAR HGB CONC 32.3 g/dl (32-36); MEAN PLATELET VOLUME 9.5 fl (7.4-10.4); MONO % 11.4 % (0-9); PLATELET COUNT 276 K/uL (130-400); RED BLOOD COUNT 4.59 M/uL (3.80-5.40); RED CELL DISTRIBUTION WIDTH 14.7 % (11.5-14.5)
[2017-02-18 13:12] LABS: BLOOD UREA NITROGEN 13 mg/dL (8-23); CKMB 2.1 ng/mL (<3.77); CREATINE PHOSPHOKINASE 66 U/L (26-192); CREATININE 0.8 mg/dL (0.5-0.9); DIGOXIN 1.8 ng/mL (0.8-2.0); EST GLOMERULAR FILTRATION RATE > 60 mL/min; GLUCOSE,RANDOM 117 mg/dL (74-109); INR 1.41; PARTIAL THROMBOPLASTIN TIME 41.2 SECONDS (24.5-39.1); PROTHROMBIN TIME (PATIENT) 15.3 SECONDS (9.5-12.1)
[2017-02-18 13:16] LABS: THYROID STIMULATING HORMONE 1.66 uIU/mL (0.270-4.20)
[2017-02-18] MEDS ORDERED: 0.9 % SODIUM CHLORIDE 1,000 ML BAG IV ONE (13:33)
--- NOTE | 2017-02-18 14:13 | CT SCAN REPORT ---
EXAM: CT OF THE BRAIN WITHOUT CONTRAST HISTORY: CONFUSION. TECHNIQUE: Sequential axial images were obtained from the foramen magnum to the vertex without contrast administration. FINDINGS: There is age appropriate cortical atrophy. There is periventricular small vessel ischemia. No large territorial infarct, hemorrhage, mass effect, or midline shift. No extraaxial fluid collection. The orbits, paranasal sinuses, and mastoid air cells are normal. IMPRESSION: 1. NO ACUTE INTRACRANIAL ABNORMALITY IS APPRECIATED. 2. AGE APPROPRIATE CORTICAL ATROPHY. [facility]BER: [id number] [facility]
--- NOTE | 2017-02-18 14:14 | RADIOLOGY REPORT ---
EXAM: CHEST, TWO VIEWS HISTORY: DIFFICULTY BREATHING. TECHNIQUE: Frontal and lateral views of the chest were performed. FINDINGS: The heart size is normal. The lungs are hyperinflated. No infiltrate or pleural effusion. There is osteopenia. IMPRESSION: HYPERINFLATED LUNGS. NO ACUTE TYPE INFILTRATE OR PLEURAL EFFUSION. JOB NUMBER: [id number] [facility]
== END 2017-02-18 14:13 | disposition home or self-care (01) ==
LOC: ER 12:12
DX: R53.1 Weakness (principal); R06.00 Dyspnea, unspecified; F03.90 Unspecified dementia, unspecified severity, without behavioral disturbance, psychotic disturbance, mood disturbance, and anxiety; F06.8 Other specified mental disorders due to known physiological condition; I10 Essential (primary) hypertension; J44.9 Chronic obstructive pulmonary disease, unspecified; I48.91 Unspecified atrial fibrillation; Z87.891 Personal history of nicotine dependence
CPT/HCPCS: 70450; 71020; 80048; 80162; 82550; 82553; 84443; 84484; 85025; 85610; 85730; 93005; 93010; 99284

== ENCOUNTER 2017-06-25 20:29 | Emergency (ER) | payer MEDICARE, OTHER, BC, MEDICAID ==
--- NOTE | 2017-06-25 20:53 | Emergency Department Record ---
History of Present Illness - General Chief complaint: Weakness Stated complaint: WEAKNESS Time Seen by Provider: 06/25/17 20:36 Source: Patient, Family, EMS Mode of Arrival: Ambulatory Limitations: No limitations - History of Present Illness Initial comments: The patient is here by EMS due to feeling weak for 2 days all over and then tonight she felt SOB. Presently the SOB has resolved. The patient denies any fall, trauma, injury, CP, fever, or cough. She has a long hx of dementia and is at her baseline per family. There also has been no fever, cough, nausea, vomiting, or diarrhea. The patient's son is at the bedside and states she may have had some L arm pain prior to the onset of her symptoms but that did not last long and did resolve. MD Complaint: Generalized weakness Onset/Timin -: Days(s) Location: Generalized Associated Symptoms: Shortness of breath - Marcie Coma Scale Eye Response: (4) Open spontaneously Motor Response: (6) Obeys commands Verbal Response: (5) Oriented Marcie Total: 15 - Related Data Allergies Allergy/AdvReac Type Severity Reaction Status Date / Time erythromycin base AdvReac DIARRHEA Verified 02/18/17 12:20 [Erythromycin Base] morphine AdvReac ALTERED Verified 02/18/17 12:20 MENTAL STATUS Travel Screening - Travel/Exposure Within Last 30 Days Have you traveled within the last 30 days?: No Review of Systems Constitutional: Denies: Chills, Fever Eyes: Denies: Eye discharge ENT: Denies: Congestion Respiratory: Reports: Dyspnea. Denies: Cough Cardiovascular: Denies: Arrhythmia, Chest pain Endocrine: Reports: Fatigue Gastrointestinal: Denies: Abdominal pain Genitourinary: Denies: Dysuria Musculoskeletal: Denies: Back pain Past Medical History - SOCIAL HISTORY Smoking Status: Former smoker Alcohol Use: None Drug Use: None - RESPIRATORY Hx Respiratory Disorders: Yes Hx COPD: Yes Hx Pneumonia: Yes (admitted 11/09/13) - CARDIOVASCULAR Hx Cardio Disorders: Yes Hx Chest Pain: Yes Hx Edema: Yes Hx Hypertension: Yes Hx Irregular Heartbeat: Yes (a-fib) Comment:: leaky valve - NEURO Hx Neuro Disorders: Yes Hx Dementia: Yes - GI Hx GI Disorders: Yes Hx Diverticulitis: Yes - Hx Genitourinary Disorders: Yes Hx UTI: Yes - ENDOCRINE Hx Endocrine Disorders: Yes Hx Diabetes: Yes (hypoglycemia) Hx Thyroid Disease: Yes - MUSCULOSKELETAL Hx Musculoskeletal Disorders: No - PSYCH Hx Psych Problems: No - HEMATOLOGY/ONCOLOGY Hx Hematology/Oncology Disorders: Yes Hx Anemia: Yes Family Medical History Any Significant Family History?: Yes Hx Dementia: Brother/Sister *Dementia Comment: Brother Hx HTN: Brother/Sister Physical Exam - General General Appearance: Alert, Cooperative, No acute distress - Head Head exam: Atraumatic, Normocephalic, Normal inspection - Eye Eye exam: Normal appearance, PERRL - ENT Throat exam: Normal inspection. negative: Tonsillar erythema, Tonsillar exudate - Neck Neck exam: Normal inspection, Full ROM. negative: Tenderness - Respiratory Respiratory exam: Normal lung sounds bilaterally. negative: Respiratory distress - Cardiovascular Cardiovascular Exam: Regular rate, Normal rhythm, Normal heart sounds - GI/Abdominal GI/Abdominal exam: Soft, Normal bowel sounds. negative: Tenderness - Extremities Extremities exam: Normal inspection, Full ROM, Normal capillary refill. negative: Tenderness - Neurological Neurological exam: Alert. negative: Motor sensory deficit Course Vital Signs 06/25/17 20:31 Temperature 97.5 F L Pulse Rate 70 Respiratory 18 Rate Blood Pressure 152/70 Pulse Ox 98 - Reevaluation(s) Reevaluation #1: 2nd EKG at 21:24: NSR at 64, RBBB, neg for any ischemic changes. 06/25/17 21:30 Reevaluation #2: The patient is doing very well at this time. She denies any problems and when I asked her if she is feeling better she states, " I never felt bad." 06/25/17 21:45 Reevaluation #3: The patient is resting comfortably with no pain, discomfort or SOB. 06/25/17 22:41 Reevaluation #4: The patient is doing very well at discharge. She has been pain free during her 4 hour stay in the ER. I did explain to the patient and son that our entire workup including a 2nd set of cardiac enzymes have been normal. She is to F/U with her PCP early next week. 06/26/17 00:29 Medical Decision Making - Data Complexity MDM Data: Labs Ordered and/or Reviewed, X-Ray Ordered and/or Reviewed, EKG Ordered and/or Reviewed - Lab Data Result diagrams: 06/25/17 21:03 06/25/17 21:03 - EKG Data -: EKG Interpreted by Me EKG: No Acute Changes, Unchanged From Previous - Radiology Data Radiology results: Report reviewed (CXR: No acute process per Rad.) Disposition Disposition: Discharge Clinical Impression: Weakness generalized Disposition: Home, Self-Care Condition: (2) Stable Instructions: Weakness (ED) Additional Instructions: Please continue her regular medicines and see your family doctor next week for recheck. Return to the ER for any pain, fever, or any trouble breathing. Forms: Patient Portal Access Time of Disposition: 00:24 Quality - Quality Measures Quality Measures: N/A - Blood Pressure Screening View Details: Yes Does Patient Have Any of the Following: Active Dx of HTN Blood Pressure Classification: Hypertensive Reading Systolic Measurement: 152 Diastolic Measurement: 70 Screening for High Blood Pressure: Patient Exclusion, Hx of HTN [G9744]
[2017-06-25 21:09] LABS: BASO % 0.9 % (0-6); EOS % 1.5 % (0-6); GRAN % 41.6 % (47-80); HEMATOCRIT 33.8 % (35.0-47.0); HEMOGLOBIN 10.3 gm/dl (11.6-16.0); MEAN CELL VOLUME 78.2 fl (81-97); MEAN CORPUSCULAR HEMOGLOBIN 23.8 pg (27-33); MEAN CORPUSCULAR HGB CONC 30.5 g/dl (32-36); MEAN PLATELET VOLUME 8.7 fl (7.4-10.4); PLATELET COUNT 307 K/uL (130-400); RED BLOOD COUNT 4.32 M/uL (3.80-5.40); RED CELL DISTRIBUTION WIDTH 14.7 % (11.5-14.5)
[2017-06-25 21:17] LABS: BLOOD UREA NITROGEN 14 mg/dL (8-23); CREATININE 0.8 mg/dL (0.5-0.9); EST GLOMERULAR FILTRATION RATE > 60 mL/min
[2017-06-25 21:20] LABS: GLUCOSE,RANDOM 84 mg/dL (74-109)
[2017-06-25 21:21] LABS: INR 1.1; PARTIAL THROMBOPLASTIN TIME 45.1 SECONDS (24.5-39.1); PROTHROMBIN TIME (PATIENT) 12.1 SECONDS (9.5-12.1)
[2017-06-25 21:23] LABS: CREATINE PHOSPHOKINASE 44 U/L (26-192)
[2017-06-25 21:26] LABS: CKMB 1.7 ng/mL (<3.77)
[2017-06-26 00:20] LABS: CKMB 1.5 ng/mL (<3.77)
--- NOTE | 2017-06-27 21:26 | RADIOLOGY REPORT ---
EXAM: CHEST 2 VIEWS COMPARISON: 02/18/17. HISTORY: WEAKNESS FOR TWO DAYS. TECHNIQUE: Chest, two views. FINDINGS: Cardiomediastinal silhouette is stable. Lungs are hyperaerated, likely related to emphysematous change/COPD. Similar biapical pleural thickening. Chronic interstitial prominence within the lung bases especially, likely related to scarring/fibrosis. No focal consolidation or pleural effusion. Surgical clips epigastric region. IMPRESSION: NO ACUTE PROCESS. JOB [facility]BER: [id number] [facility]
== END 2017-06-26 00:37 | disposition home or self-care (01) ==
LOC: ER 20:29
DX: R53.1 Weakness (principal); R06.02 Shortness of breath; J44.9 Chronic obstructive pulmonary disease, unspecified; I48.91 Unspecified atrial fibrillation; I10 Essential (primary) hypertension; Z87.891 Personal history of nicotine dependence
CPT/HCPCS: 71046; 80048; 82550; 82553; 83880; 84484; 85025; 85610; 85730; 93005; 93010; 99284

== ENCOUNTER 2017-09-14 07:52 | Emergency (ER) | payer MEDICARE, OTHER, BC, MEDICAID ==
[2017-09-14 08:07] LABS: HEMATOCRIT 37.6 % (35.0-47.0); HEMOGLOBIN 11.9 gm/dl (11.6-16.0); MEAN CELL VOLUME 80.7 fl (81-97); MEAN CORPUSCULAR HEMOGLOBIN 25.5 pg (27-33); MEAN CORPUSCULAR HGB CONC 31.6 g/dl (32-36); MEAN PLATELET VOLUME 9.3 fl (7.4-10.4); PLATELET COUNT 315 K/uL (130-400); RED BLOOD COUNT 4.66 M/uL (3.80-5.40); RED CELL DISTRIBUTION WIDTH 16.2 % (11.5-14.5); WHITE BLOOD COUNT W/O DIFF 10.8 K/uL (4.2-12.2)
[2017-09-14 08:17] LABS: BLOOD UREA NITROGEN 12 mg/dL (8-23); CREATININE 0.6 mg/dL (0.5-0.9); EST GLOMERULAR FILTRATION RATE > 60 mL/min
[2017-09-14 08:18] LABS: TOTAL PROTEIN 6.8 g/dL (6.6-8.7)
[2017-09-14 08:19] LABS: PARTIAL THROMBOPLASTIN TIME 32.7 SECONDS (24.5-39.1); PROTHROMBIN TIME (PATIENT) 10.7 SECONDS (9.5-12.1)
[2017-09-14 08:20] LABS: GLUCOSE,RANDOM 87 mg/dL (74-109)
[2017-09-14 08:22] LABS: ALT/SGPT 9 U/L (<33); AST/SGOT 12 U/L (10.0-35.0)
--- NOTE | 2017-09-14 08:22 | Emergency Department Record ---
History of Present Illness - General Chief Complaint: Fall Injury Stated Complaint: FALL Time Seen by Provider: 09/14/17 07:57 Source: Patient, EMS Mode of Arrival: EMS Limitations: No limitations - History of Present Illness Initial Comments: pt fell in the night injuring her, head, neck, back and ribs.she states she tripped. she went back to bed but had pain when attempting to arise this am. she is on a blood thinner Onset/Timin -: Hour(s) Fall From: Standing When Fall Occurred: 1-3 hours [employer] Fall Witnessed: No Place Fall Occurred: Home Loss of Consciousness: None Prolonged Down Time?: Unclear Symptoms Prior to Fall: None Location: Head, Neck, Chest, Back Severity: Moderate Severity scale (1-10): 8 Associated Symptoms: Denies - [place] Coma Scale Eye Response: (4) Open spontaneously Motor Response: (6) Obeys commands Verbal Response: (5) Oriented [place] Total: 15 - Related Data Allergies Allergy/AdvReac Type Severity Reaction Status Date / Time erythromycin base AdvReac DIARRHEA Verified 02/18/17 12:20 [Erythromycin Base] morphine AdvReac ALTERED Verified 02/18/17 12:20 MENTAL STATUS Travel Screening - Travel/Exposure Within Last 30 Days Have you traveled within the last 30 days?: No Review of Systems Reviewed: No additional complaints except as noted below Constitutional: Reports: As per HPI. Denies: Chills, Fever, Malaise, Night sweats, Weakness, Weight change Eyes: Reports: As per HPI. Denies: Eye discharge, Eye pain, Photophobia, Vision change ENT: Reports: As per HPI. Denies: Congestion, Dental pain, Ear pain, Epistaxis , Hearing loss, Throat pain Respiratory: Reports: As per HPI. Denies: Cough, Dyspnea, Hemoptysis, Stridor, Wheezes Cardiovascular: Reports: As per HPI. Denies: Arrhythmia, Chest pain, Dyspnea on exertion, Edema, Murmurs, Orthopnea, Palpitations, Paroxysmal nocturnal dyspnea, Rheumatic Fever, Syncope Endocrine: Reports: As per HPI. Denies: Fatigue, Heat or cold intolerance, Polydipsia, Polyuria Gastrointestinal: Reports: As per HPI. Denies: Abdominal pain, Constipation, Diarrhea, Hematemesis, Hematochezia, Melena, Nausea, Vomiting Genitourinary: Reports: As per HPI. Denies: Abnormal menses, Discharge, Dyspareunia, Dysuria, Frequency, Hematuria, Incontinence, Retention, Urgency Musculoskeletal: Reports: As per HPI. Denies: Arthralgia, Back pain, Gout, Joint swelling, Myalgia, Neck pain Skin: Reports: As per HPI. Denies: Bruising, Change in color, Change in hair/ nails, Lesions, Pruritus, Rash Neurological: Reports: As per HPI. Denies: Abnormal gait, Confusion, Headache, Numbness, Paresthesias, Seizure, Tingling, Tremors, Vertigo, Weakness Psychiatric: Reports: As per HPI. Denies: Anxiety, Auditory hallucinations, Depression, Homicidal thoughts, Suicidal thoughts, Visual hallucinations Hematological/Lymphatic: Reports: As per HPI. Denies: Anemia, Blood Clots, Easy bleeding, Easy bruising, Swollen glands Past Medical History - SOCIAL HISTORY Smoking Status: Former smoker - RESPIRATORY Hx Respiratory Disorders: Yes Hx COPD: Yes Hx Pneumonia: Yes (admitted 11/09/13) - CARDIOVASCULAR Hx Cardio Disorders: Yes Hx Chest Pain: Yes Hx Edema: Yes Hx Hypertension: Yes Hx Irregular Heartbeat: Yes (a-fib) Comment:: leaky valve - NEURO Hx Neuro Disorders: Yes Hx Dementia: Yes - GI Hx GI Disorders: Yes Hx Diverticulitis: Yes - Hx Genitourinary Disorders: Yes Hx UTI: Yes - ENDOCRINE Hx Endocrine Disorders: Yes Hx Diabetes: Yes (hypoglycemia) Hx Thyroid Disease: Yes - MUSCULOSKELETAL Hx Musculoskeletal Disorders: No - PSYCH Hx Psych Problems: No - HEMATOLOGY/ONCOLOGY Hx Hematology/Oncology Disorders: Yes Hx Anemia: Yes Family Medical History Any Significant Family History?: Yes Hx Dementia: Brother/Sister *Dementia Comment: Brother Hx HTN: Brother/Sister Physical Exam - General General Appearance: Alert, Oriented x3, Cooperative, Mild distress - Head Head exam: Normal inspection Head exam detail: General tenderness - Eye Eye exam: Normal appearance, PERRL, EOMI Pupils: Normal accommodation - ENT ENT exam: Normal exam, Mucous membranes moist, Normal external ear exam, Normal orophraynx Ear exam: Normal external inspection. negative: External canal tenderness Nasal Exam: Normal inspection. negative: Discharge, Sinus tenderness Mouth exam: Normal external inspection, Tongue normal Teeth exam: Normal inspection. negative: Dental caries Throat exam: Normal inspection. negative: Tonsillar erythema, Tonsillar exudate - Neck Neck exam: Normal inspection, Tenderness. negative: Full ROM - Respiratory Respiratory exam: Normal lung sounds bilaterally, Chest wall tenderness. negative: Respiratory distress - Cardiovascular Cardiovascular Exam: Regular rate, Normal rhythm, Normal heart sounds - GI/Abdominal GI/Abdominal exam: Soft, Normal bowel sounds. negative: Tenderness - Rectal Rectal exam: Deferred - exam: Deferred - Extremities Extremities exam: Normal inspection, Full ROM, Normal capillary refill. negative: Tenderness - Back Back exam: Reports: Normal inspection, Tenderness. Denies: Full ROM, Muscle spasm, Rash noted - Neurological Neurological exam: Alert, Normal gait, Oriented X3, Reflexes normal - Psychiatric Psychiatric exam: Normal affect, Normal mood - Skin Skin exam: Dry, Intact, Normal color, Warm Course Vital Signs 09/14/17 07:56 Temperature 98.2 F Pulse Rate 70 Respiratory 18 Rate Blood Pressure 154/70 Pulse Ox 99 - Reevaluation(s) Reevaluation #1: 09/14/17 09:13 pt able to ambulate Medical Decision Making - Lab Data Result diagrams: 09/14/17 08:00 09/14/17 08:00 Lab Results 09/14/17 Range/Units 08:00 WBC 10.8 (4.2-12.2) K/uL RBC 4.66 (3.80-5.40) M/uL Hgb 11.9 (11.6-16.0) gm/dl Hct 37.6 (35.0-47.0) % MCV 80.7 L (81-97) fl MCH 25.5 L (27-33) pg MCHC 31.6 L (32-36) g/dl RDW 16.2 H (11.5-14.5) % Plt Count 315 (130-400) K/uL MPV 9.3 (7.4-10.4) fl Eosinophils % Not Reportable Basophils % Not Reportable Disposition Disposition: Discharge Clinical Impression: Multiple contusions Fall Qualifiers: Encounter type: initial encounter Qualified Code(s): W19.XXXA - Unspecified fall, initial encounter Disposition: Home, Self-Care Condition: (1) Good Instructions: Fall Prevention for Older Adults (ED), Contusion in Adults (ED) Additional Instructions: follow up with family doctor. return sooner if worse. ice to sore areas Forms: Patient Portal Access Quality - Quality Measures Quality Measures: N/A - Blood Pressure Screening Does Patient Have Any of the Following: No Blood Pressure Classification: Hypertensive Reading Systolic Measurement: 154 Diastolic Measurement: 70 Screening for High Blood Pressure: < Pre-Hypertensive BP, F/U Documented > [ G8950] Pre-Hypertensive Follow-up Interventions: Follow-up with rescreen every year.
[2017-09-14 08:23] LABS: ALB/GLOB RATIO 1.7 (1.1-1.8); ALBUMIN 4.3 g/dL (4.0-5.0); ALKALINE PHOSPHATASE 43 U/L (35-104)
[2017-09-14] MEDS ORDERED: ACETAMINOPHEN 325 MG TAB PO ONE (09:12)
[2017-09-14] MEDS ORDERED: TRAMADOL HCL 50 MG TABLET PO PRN (09:33)
--- NOTE | 2017-09-14 09:40 | Emergency Department Record ---
History of Present Illness - General Chief Complaint: Fall Injury Stated Complaint: FALL Time Seen by Provider: 09/14/17 07:57 Source: Patient, EMS Mode of Arrival: EMS - History of Present Illness Onset/Timin -: Hour(s) Fall From: Standing When Fall Occurred: 1-3 hours SIGN [employer] Fall Witnessed: No Place Fall Occurred: Home Loss of Consciousness: None Prolonged Down Time?: Unclear Symptoms Prior to Fall: None Location: Head, Neck, Chest, Back Severity: Moderate Severity scale (1-10): 8 Associated Symptoms: Denies - Marcie Coma Scale Eye Response: (4) Open spontaneously Motor Response: (6) Obeys commands Verbal Response: (5) Oriented Marcie Total: 15 - Related Data Previous Rx's Medication Instructions Recorded Tramadol HCl [Ultram] 25 mg PO Q8H #8 tab 09/14/17 Allergies Allergy/AdvReac Type Severity Reaction Status Date / Time erythromycin base AdvReac DIARRHEA Verified 02/18/17 12:20 [Erythromycin Base] morphine AdvReac ALTERED Verified 02/18/17 12:20 MENTAL STATUS Travel Screening - Travel/Exposure Within Last 30 Days Have you traveled within the last 30 days?: No Review of Systems Constitutional: Reports: As per HPI. Denies: Chills, Fever, Malaise, Night sweats, Weakness, Weight change Eyes: Reports: As per HPI. Denies: Eye discharge, Eye pain, Photophobia, Vision change ENT: Reports: As per HPI. Denies: Congestion, Dental pain, Ear pain, Epistaxis , Hearing loss, Throat pain Respiratory: Reports: As per HPI. Denies: Cough, Dyspnea, Hemoptysis, Stridor, Wheezes Cardiovascular: Reports: As per HPI. Denies: Arrhythmia, Chest pain, Dyspnea on exertion, Edema, Murmurs, Orthopnea, Palpitations, Paroxysmal nocturnal dyspnea, Rheumatic Fever, Syncope Endocrine: Reports: As per HPI. Denies: Fatigue, Heat or cold intolerance, Polydipsia, Polyuria Gastrointestinal: Reports: As per HPI. Denies: Abdominal pain, Constipation, Diarrhea, Hematemesis, Hematochezia, Melena, Nausea, Vomiting Genitourinary: Reports: As per HPI. Denies: Abnormal menses, Discharge, Dyspareunia, Dysuria, Frequency, Hematuria, Incontinence, Retention, Urgency Musculoskeletal: Reports: As per HPI. Denies: Arthralgia, Back pain, Gout, Joint swelling, Myalgia, Neck pain Skin: Reports: As per HPI. Denies: Bruising, Change in color, Change in hair/ nails, Lesions, Pruritus, Rash Neurological: Reports: As per HPI. Denies: Abnormal gait, Confusion, Headache, Numbness, Paresthesias, Seizure, Tingling, Tremors, Vertigo, Weakness Psychiatric: Reports: As per HPI. Denies: Anxiety, Auditory hallucinations, Depression, Homicidal thoughts, Suicidal thoughts, Visual hallucinations Hematological/Lymphatic: Reports: As per HPI. Denies: Anemia, Blood Clots, Easy bleeding, Easy bruising, Swollen glands Past Medical History - SOCIAL HISTORY Smoking Status: Former smoker - RESPIRATORY Hx Respiratory Disorders: Yes Hx COPD: Yes Hx Pneumonia: Yes (admitted 11/09/13) - CARDIOVASCULAR Hx Cardio Disorders: Yes Hx Chest Pain: Yes Hx Edema: Yes Hx Hypertension: Yes Hx Irregular Heartbeat: Yes (a-fib) Comment:: leaky valve - NEURO Hx Neuro Disorders: Yes Hx Dementia: Yes - GI Hx GI Disorders: Yes Hx Diverticulitis: Yes - Hx Genitourinary Disorders: Yes Hx UTI: Yes - ENDOCRINE Hx Endocrine Disorders: Yes Hx Diabetes: Yes (hypoglycemia) Hx Thyroid Disease: Yes - MUSCULOSKELETAL Hx Musculoskeletal Disorders: No - PSYCH Hx Psych Problems: No - HEMATOLOGY/ONCOLOGY Hx Hematology/Oncology Disorders: Yes Hx Anemia: Yes Family Medical History Any Significant Family History?: Yes Hx Dementia: Brother/Sister *Dementia Comment: Brother Hx HTN: Brother/Sister Physical Exam - General Limitations: No limitations Course Vital Signs 09/14/17 07:56 Temperature 98.2 F Pulse Rate 70 Respiratory 18 Rate Blood Pressure 154/70 Pulse Ox 99 Medical Decision Making - Lab Data Result diagrams: 09/14/17 08:00 09/14/17 08:00 Lab Results 09/14/17 09/14/17 09/14/17 Range/Units 08:00 08:00 08:00 WBC 10.8 (4.2-12.2) K/uL RBC 4.66 (3.80-5.40) M/uL Hgb 11.9 (11.6-16.0) gm/dl Hct 37.6 (35.0-47.0) % MCV 80.7 L (81-97) fl MCH 25.5 L (27-33) pg MCHC 31.6 L (32-36) g/dl RDW 16.2 H (11.5-14.5) % Plt Count 315 (130-400) K/uL MPV 9.3 (7.4-10.4) fl Neutrophils % 61.0 (47-80) % Band Neutrophils % 1.0 (0-5) % Eosinophils % Not Reportable Basophils % Not Reportable Lymphocytes 32.0 (16-45) % Monocytes 6.0 (0-9) % Basophils 0.0 (0-6) % Eosinophil Count 0.0 (0-6) % PT 10.7 (9.5-12.1) SECONDS INR 1.0 APTT 32.7 (24.5-39.1) SECONDS Sodium 139 (136-145) mmol/L Potassium 4.0 (3.4-4.5) mmol/L Chloride 96 L (98-107) mmol/L Carbon Dioxide 26.0 (22-29) mmol/L Anion Gap 17.0 H (7-16) BUN 12 (8-23) mg/dL Creatinine 0.6 (0.5-0.9) mg/dL Estimated GFR > 60 mL/min Random Glucose 87 (74-109) mg/dL Calcium 9.2 (8.8-10.2) mg/dL Total Bilirubin 0.30 (0.2-1.0) mg/dL AST 12 (10.0-35.0) U/L ALT 9 (<33) U/L Alkaline Phosphatase 43 (35-104) U/L Total Protein 6.8 (6.6-8.7) g/dL Albumin 4.3 (4.0-5.0) g/dL Globulin 2.5 (1.4-4.8) gm/dL Albumin/Globulin Ratio 1.7 (1.1-1.8) Disposition Clinical Impression: Multiple contusions Fall Qualifiers: Encounter type: initial encounter Qualified Code(s): W19.XXXA - Unspecified fall, initial encounter Disposition: Home, Self-Care Condition: (1) Good Instructions: Fall Prevention for Older Adults (ED), Contusion in Adults (ED) Additional Instructions: follow up with family doctor. return sooner if worse. ice to sore areas Prescriptions: Tramadol HCl [Ultram] 25 mg PO Q8H #8 tab Forms: Patient Portal Access Quality - Quality Measures Quality Measures: N/A - Blood Pressure Screening Does Patient Have Any of the Following: No Blood Pressure Classification: Hypertensive Reading Systolic Measurement: 154 Diastolic Measurement: 70 Screening for High Blood Pressure: < First Hypertensive BP, F/U Documented > [ [id number]] First Hypertensive Follow-up Interventions: Follow-up with rescreen GT 1 day and LT 4 weeks.
--- NOTE | 2017-09-15 09:13 | CT SCAN REPORT ---
EXAM: CT OF THE BRAIN HISTORY: FALL. TECHNIQUE: CT of the brain without contrast was obtained. Comparison: Prior CT brain from 02/18/17. FINDINGS: The globes are intact. The paranasal sinuses and mastoid air cells are unremarkable. There is no displaced or depressed skull fracture. There is no intra or extraaxial hemorrhage. CT is limited for the evaluation of acute infarct. There is no CT evidence for large or territorial acute infarct. Diffuse atrophy. Small vessel ischemic change. No mass or midline shift. Bilateral basal ganglia calcifications. IMPRESSION: DIFFUSE ATROPHY. SMALL VESSEL ISCHEMIC CHANGE. JOB NUMBER: [id number] MTDD
--- NOTE | 2017-09-15 09:37 | CT SCAN REPORT ---
EXAM: CT OF THE CERVICAL SPINE WITHOUT CONTRAST HISTORY: FALL. TECHNIQUE: Axial CT images of the cervical spine were obtained with coronal and sagittal reconstructions. Comparison: None. FINDINGS: Evaluation of spinal canal contents is limited due to CT technique, however, the vertebral body height and alignment is preserved. The atlantoaxial space is preserved. The lateral masses are not displaced. Diffuse /multilevel degenerative change, greatest at the C5-C6 level. Limited evaluation of the lung apices shows biapical pleural thickening and scar formation. IMPRESSION: NEGATIVE FOR ACUTE CERVICAL SPINE ABNORMALITY. JOB NUMBER: [id number] MTDD
--- NOTE | 2017-09-15 09:43 | CT SCAN REPORT ---
EXAM: CT OF THE CHEST HISTORY: FALL. TECHNIQUE: CT of the chest was obtained without IV contrast. Lack of IV contrast limits evaluation of the mediastinum and hilum. Comparison: Prior CT chest 09/20/14. FINDINGS: No convincing evidence for mediastinal or hilar adenopathy. 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 Coronary artery calcification. Limited evaluation of the upper abdomen shows partial visualization of what is likely an extrarenal pelvis of the right kidney. Moderate atheromatous changes. The osseous structures of the thorax are grossly intact. No pneumothorax. The visualized airways are patent. Biapical pleural thickening and scarring. Reticulonodular change in the right upper lobe may reflect minor pneumonitis. Minor scarring in the lung bases bilaterally. No effusion. 4 mm nodule in the right upper lobe. This could be followed nonemergently. 3 mm subpleural nodule in the lateral right upper lobe. This could also be followed nonemergently. These appear grossly similar to the prior exam. IMPRESSION: 1. MINOR RETICULONODULAR CHANGE IN THE RIGHT UPPER LOBE MAY REFLECT MINOR PNEUMONITIS. STABLE SUBPLEURAL NODULES OF THE RIGHT UPPER LOBE. 2. 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 JOB NUMBER: [id number] MTDD
== END 2017-09-14 09:35 | disposition home or self-care (01) ==
LOC: ER 07:52
DX: S20.219A Contusion of unspecified front wall of thorax, initial encounter (principal); S10.83XA Contusion of other specified part of neck, initial encounter; S20.229A Contusion of unspecified back wall of thorax, initial encounter; S00.03XA Contusion of scalp, initial encounter; I10 Essential (primary) hypertension; I48.91 Unspecified atrial fibrillation; J44.9 Chronic obstructive pulmonary disease, unspecified; Y92.002 Bathroom of unspecified non-institutional (private) residence as the place of occurrence of the external cause; Z87.891 Personal history of nicotine dependence; Z79.01 Long term (current) use of anticoagulants
CPT/HCPCS: 70450; 71250; 72125; 80053; 85027; 85610; 85730; 99284; G0390

== ENCOUNTER 2017-10-07 12:20 | Inpatient (IN) | payer MEDICARE, BC, OTHER, MEDICAID ==
[2017-10-07] MEDS ORDERED: 0.9% SODIUM CHLORIDE 250ML BAG IV ONE (12:38)
[2017-10-07] MEDS ORDERED: ACETAMINOPHEN 325 MG TAB PO ONE (12:43)
[2017-10-07 12:53] LABS: BASO % 0.1 % (0-6); HEMATOCRIT 43.2 % (35.0-47.0); HEMOGLOBIN 13.6 gm/dl (11.6-16.0); LYMPH % 6.4 % (16-45); MEAN CELL VOLUME 81.4 fl (81-97); MEAN CORPUSCULAR HEMOGLOBIN 25.6 pg (27-33); MEAN CORPUSCULAR HGB CONC 31.5 g/dl (32-36); MEAN PLATELET VOLUME 9.2 fl (7.4-10.4); MONO % 4.5 % (0-9); PLATELET COUNT 371 K/uL (130-400); RED BLOOD COUNT 5.31 M/uL (3.80-5.40); RED CELL DISTRIBUTION WIDTH 16.1 % (11.5-14.5); URINE APPEARANCE CLEAR; URINE BILIRUBIN NEGATIVE (NEGATIVE); URINE BLOOD TRACE-I (NEGATIVE); URINE COLOR YELLOW; URINE GLUCOSE (UA) NEGATIVE (NEGATIVE); URINE KETONE NEGATIVE (NEGATIVE); URINE LEUKOCYTE ESTERASE LARGE (NEGATIVE); URINE NITRITE NEGATIVE (NEGATIVE); URINE PROTEIN NEGATIVE (NEGATIVE); WHITE BLOOD COUNT W/O DIFF 18.1 K/uL (4.2-12.2)
[2017-10-07 13:16] LABS: BLOOD UREA NITROGEN 8 mg/dL (8-23); CREATININE 0.6 mg/dL (0.5-0.9); EST GLOMERULAR FILTRATION RATE > 60 mL/min
[2017-10-07 13:17] LABS: TOTAL PROTEIN 7.6 g/dL (6.6-8.7)
[2017-10-07 13:19] LABS: GLUCOSE,RANDOM 194 mg/dL (74-109)
[2017-10-07 13:22] LABS: ALB/GLOB RATIO 1.2 (1.1-1.8); ALBUMIN 4.2 g/dL (4.0-5.0); ALKALINE PHOSPHATASE 89 U/L (35-104); ALT/SGPT 12 U/L (<33); AST/SGOT 15 U/L (10.0-35.0)
[2017-10-07 13:24] LABS: URINE BACTERIA 1+; URINE EPITHELIAL CELLS 0 - 2 (FEW); URINE MUCUS MODERATE; URINE RBC 0 - 2 (NONE SEEN)
--- NOTE | 2017-10-07 14:01 | Emergency Department Record ---
History of Present Illness - General Chief complaint: Vomiting Stated complaint: FEVER/VOMITING Time Seen by Provider: 10/07/17 12:28 Source: Patient Mode of Arrival: Wheelchair Limitations: No limitations - History of Present Illness Initial comments: pt started running a fever this am. she also has ap and vomited twice. she has frequent utis MD complaint: Abdominal pain, Nausea, Vomiting Onset/Timin -: Days(s) Description of Vomiting: Other Associated Abdominal Pain: No Radiation: Chest Quality: Aching Consistency: Constant Improves with: None Worsens with: None Context: Other Associated Symptoms: Fever/chills, Nausea/vomiting - Related Data Allergies Allergy/AdvReac Type Severity Reaction Status Date / Time erythromycin base AdvReac DIARRHEA Verified 02/18/17 12:20 [Erythromycin Base] morphine AdvReac ALTERED Verified 02/18/17 12:20 MENTAL STATUS Travel Screening - Travel/Exposure Within Last 30 Days Have you traveled within the last 30 days?: No Review of Systems Reviewed: No additional complaints except as noted below Constitutional: Reports: As per HPI, Weakness. Denies: Chills, Fever, Malaise, Night sweats, Weight change Eyes: Reports: As per HPI. Denies: Eye discharge, Eye pain, Photophobia, Vision change ENT: Reports: As per HPI. Denies: Congestion, Dental pain, Ear pain, Epistaxis , Hearing loss, Throat pain Respiratory: Reports: As per HPI, Cough. Denies: Dyspnea, Hemoptysis, Stridor, Wheezes Cardiovascular: Reports: As per HPI. Denies: Arrhythmia, Chest pain, Dyspnea on exertion, Edema, Murmurs, Orthopnea, Palpitations, Paroxysmal nocturnal dyspnea, Rheumatic Fever, Syncope Endocrine: Reports: As per HPI. Denies: Fatigue, Heat or cold intolerance, Polydipsia, Polyuria Gastrointestinal: Reports: As per HPI, Abdominal pain, Nausea, Vomiting. Denies : Constipation, Diarrhea, Hematemesis, Hematochezia, Melena Genitourinary: Reports: As per HPI. Denies: Abnormal menses, Discharge, Dyspareunia, Dysuria, Frequency, Hematuria, Incontinence, Retention, Urgency Musculoskeletal: Reports: As per HPI. Denies: Arthralgia, Back pain, Gout, Joint swelling, Myalgia, Neck pain Skin: Reports: As per HPI. Denies: Bruising, Change in color, Change in hair/ nails, Lesions, Pruritus, Rash Neurological: Reports: As per HPI. Denies: Abnormal gait, Confusion, Headache, Numbness, Paresthesias, Seizure, Tingling, Tremors, Vertigo, Weakness Psychiatric: Reports: As per HPI. Denies: Anxiety, Auditory hallucinations, Depression, Homicidal thoughts, Suicidal thoughts, Visual hallucinations Hematological/Lymphatic: Reports: As per HPI. Denies: Anemia, Blood Clots, Easy bleeding, Easy bruising, Swollen glands Past Medical History - SOCIAL HISTORY Smoking Status: Former smoker - RESPIRATORY Hx Respiratory Disorders: Yes Hx COPD: Yes Hx Pneumonia: Yes (admitted 11/09/13) - CARDIOVASCULAR Hx Cardio Disorders: Yes Hx Chest Pain: Yes Hx Edema: Yes Hx Hypertension: Yes Hx Irregular Heartbeat: Yes (a-fib) Comment:: leaky valve - NEURO Hx Neuro Disorders: Yes Hx Dementia: Yes - GI Hx GI Disorders: Yes Hx Diverticulitis: Yes - Hx Genitourinary Disorders: Yes Hx UTI: Yes - ENDOCRINE Hx Endocrine Disorders: Yes Hx Diabetes: Yes (hypoglycemia) Hx Thyroid Disease: Yes - MUSCULOSKELETAL Hx Musculoskeletal Disorders: No - PSYCH Hx Psych Problems: No - HEMATOLOGY/ONCOLOGY Hx Hematology/Oncology Disorders: Yes Hx Anemia: Yes Family Medical History Any Significant Family History?: Yes Hx Dementia: Brother/Sister *Dementia Comment: Brother Hx HTN: Brother/Sister Physical Exam - General General Appearance: Alert, Oriented x3, Cooperative, Mild distress - Head Head exam: Normal inspection - Eye Eye exam: Normal appearance, PERRL, EOMI Pupils: Normal accommodation - ENT ENT exam: Normal exam, Mucous membranes moist, Normal external ear exam, Normal orophraynx Ear exam: Normal external inspection. negative: External canal tenderness Nasal Exam: Normal inspection. negative: Discharge, Sinus tenderness Mouth exam: Normal external inspection, Tongue normal Teeth exam: Normal inspection. negative: Dental caries Throat exam: Normal inspection. negative: Tonsillar erythema, Tonsillar exudate - Neck Neck exam: Normal inspection, Full ROM. negative: Tenderness - Respiratory Respiratory exam: Normal lung sounds bilaterally. negative: Respiratory distress - Cardiovascular Cardiovascular Exam: Regular rate, Normal rhythm, Normal heart sounds - GI/Abdominal GI/Abdominal exam: Soft, Normal bowel sounds, Tenderness - Rectal Rectal exam: Deferred - exam: Deferred - Extremities Extremities exam: Normal inspection, Full ROM, Normal capillary refill. negative: Tenderness - Back Back exam: Reports: Normal inspection, Full ROM. Denies: Muscle spasm, Rash noted, Tenderness - Neurological Neurological exam: Alert, CN II-XII intact, Normal gait, Oriented X3 - Psychiatric Psychiatric exam: Normal affect, Normal mood - Skin Skin exam: Dry, Intact, Normal color, Warm Course Vital Signs 10/07/17 12:23 Temperature 101.0 F H Pulse Rate 95 H Respiratory 22 Rate Blood Pressure 141/64 Pulse Ox 85 L Medical Decision Making - Lab Data Result diagrams: 10/07/17 12:30 10/07/17 12:50 Lab Results 10/07/17 10/07/17 10/07/17 Range/Units 12:30 12:30 12:50 WBC 18.1 H (4.2-12.2) K/uL RBC 5.31 (3.80-5.40) M/uL Hgb 13.6 (11.6-16.0) gm/dl Hct 43.2 (35.0-47.0) % MCV 81.4 (81-97) fl MCH 25.6 L (27-33) pg MCHC 31.5 L (32-36) g/dl RDW 16.1 H (11.5-14.5) % Plt Count 371 (130-400) K/uL MPV 9.2 (7.4-10.4) fl Neutrophils % 82.0 H (47-80) % Band Neutrophils % 8.0 H (0-5) % Lymphocytes % 6.4 L (16-45) % Monocytes % 4.5 (0-9) % Eosinophils % 0.0 (0-6) % Basophils % 0.1 (0-6) % Lymphocytes 9.0 L (16-45) % Monocytes 1.0 (0-9) % Basophils 0.0 (0-6) % Eosinophil Count 0.0 (0-6) % Sodium 138 (136-145) mmol/L Potassium 3.6 (3.4-4.5) mmol/L Chloride 92 L (98-107) mmol/L Carbon Dioxide 23.0 (22-29) mmol/L Anion Gap 23.0 H (7-16) BUN 8 (8-23) mg/dL Creatinine 0.6 (0.5-0.9) mg/dL Estimated GFR > 60 mL/min Random Glucose 194 H (74-109) mg/dL Lactic Acid Cancelled Calcium 9.3 (8.8-10.2) mg/dL Total Bilirubin 0.60 (0.2-1.0) mg/dL AST 15 (10.0-35.0) U/L ALT 12 (<33) U/L Alkaline Phosphatase 89 (35-104) U/L Total Protein 7.6 (6.6-8.7) g/dL Albumin 4.2 (4.0-5.0) g/dL Globulin 3.4 (1.4-4.8) gm/dL Albumin/Globulin Ratio 1.2 (1.1-1.8) Urine Color Yellow Urine Appearance Clear Urine pH 7.5 (5.0-8.0) Ur Specific [place] 1.010 (1.002-1.030) Urine Protein Negative (NEGATIVE) Urine Glucose (UA) Negative (NEGATIVE) Urine Ketones Negative (NEGATIVE) Urine Blood Trace-i (NEGATIVE) Urine Nitrite Negative (NEGATIVE) Urine Bilirubin Negative (NEGATIVE) Urine Urobilinogen 1.0 (0.20 - 1.00) E.U./dL Ur Leukocyte Esterase Large H (NEGATIVE) Urine RBC 0 - 2 (NONE SEEN) Urine WBC 3 - 5 (0-2/hpf) Ur Epithelial Cells 0 - 2 (FEW) Urine Bacteria 1+ Urine Mucus Moderate Disposition Disposition: Admit Clinical Impression: Urinary retention, Lung nodule Pneumonia Qualifiers: Pneumonia type: due to unspecified organism Laterality: left Lung location: lower lobe of lung Qualified Code(s): J18.1 - Lobar pneumonia, unspecified organism Hydronephrosis Qualifiers: Hydronephrosis type: unspecified Qualified Code(s): N13.30 - Unspecified hydronephrosis UTI (urinary tract infection) Qualifiers: Urinary tract infection type: acute cystitis Hematuria presence: without hematuria Qualified Code(s): N30.00 - Acute cystitis without hematuria Disposition: Still a Patient at [facility] Decision to Admit: Admit from ER Decision to Admit Date: 10/07/17 Decision to Admit Time: 16:21 Forms: Patient Portal Access Quality - Quality Measures Quality Measures: N/A - Blood Pressure Screening Does Patient Have Any of the Following: Active Dx of HTN Blood Pressure Classification: Hypertensive Reading Systolic Measurement: 141 Diastolic Measurement: 64 Screening for High Blood Pressure: Patient Exclusion, Hx of HTN [G9744]
[2017-10-07] MEDS ORDERED: LEVOFLOXACIN 500MG IVPB 500 MG/100 ML BAG IVPB ONE (15:39)
[2017-10-07] MEDS ORDERED: 0.9 % SODIUM CHLORIDE 1000ML 1,000 ML IV PRN (16:44)
[2017-10-07] MEDS ORDERED: ALBUTEROL SULFATE (0.083%) 2.5 MG/3 ML NEB INH PRN (16:44)
[2017-10-07] MEDS: ONDANSETRON HCL IV 4 MG/2 ML VIAL IVP PRN ×2 (17:04→22:37)
--- NOTE | 2017-10-07 17:16 | History & Physical ---
History of Present Illness - Date of Service Date of Service for History & Physical: 10/08/17 - History of Present Illness Admitting Diagnosis: lll pneumonia, hydronephrosis, urinary retention, uti, lung nodule, 6 fxd ribs History of Present Illness: Mrs. Blacno is a 86 y/o female presenting with nausea, vomiting and weakness. As per the patient's son she had diarrhea about a weak ago and has had a poor appetite since. She also started to have fevers over the past 24 hours which were waxing and waning. The patient's son is her caregiver at home and reports that she has had difficulty getting to the rest room and most recently had a fall injuring her back on the bathtub a few weeks ago. On arrival to the ED the patient was noted to have an elevated white count, fever and hypotension. UA showed minimal WBCs, leukocyte esterases and chest xray positive for a left lung infiltrate. Abdominal CT/Pelvis showed marked hydronephrosis on the right and significant bladder retention. A aguilar catheter was placed yielding 1300cc of urine. The patient is admitted for sepsis due to UTI and Pneumonia of the left lower lung. On bedside examination this afternoon the patient is awake, alert but poorly oriented. She has a history of dementia and a review of systems is not attainable at this time. She is hemodynamically stable on admission. Travel Screening - Travel/Exposure Within Last 30 Days Have you traveled within the last 30 days?: No Review of Systems Constitutional: Reports: As per HPI, Weakness. Denies: Chills, Fever, Malaise, Night sweats, Weight change Eyes: Reports: As per HPI. Denies: Eye discharge, Eye pain, Photophobia, Vision change ENT: Reports: As per HPI. Denies: Congestion, Dental pain, Ear pain, Epistaxis , Hearing loss, Throat pain Respiratory: Reports: As per HPI, Cough. Denies: Dyspnea, Hemoptysis, Stridor, Wheezes Cardiovascular: Reports: As per HPI. Denies: Arrhythmia, Chest pain, Dyspnea on exertion, Edema, Murmurs, Orthopnea, Palpitations, Paroxysmal nocturnal dyspnea, Rheumatic Fever, Syncope Endocrine: Reports: As per HPI. Denies: Fatigue, Heat or cold intolerance, Polydipsia, Polyuria Gastrointestinal: Reports: As per HPI, Abdominal pain, Nausea, Vomiting. Denies : Constipation, Diarrhea, Hematemesis, Hematochezia, Melena Genitourinary: Reports: As per HPI. Denies: Abnormal menses, Discharge, Dyspareunia, Dysuria, Frequency, Hematuria, Incontinence, Retention, Urgency Musculoskeletal: Reports: As per HPI. Denies: Arthralgia, Back pain, Gout, Joint swelling, Myalgia, Neck pain Skin: Reports: As per HPI. Denies: Bruising, Change in color, Change in hair/ nails, Lesions, Pruritus, Rash Neurological: Reports: As per HPI. Denies: Abnormal gait, Confusion, Headache, Numbness, Paresthesias, Seizure, Tingling, Tremors, Vertigo, Weakness Psychiatric: Reports: As per HPI. Denies: Anxiety, Auditory hallucinations, Depression, Homicidal thoughts, Suicidal thoughts, Visual hallucinations Hematological/Lymphatic: Reports: As per HPI. Denies: Anemia, Blood Clots, Easy bleeding, Easy bruising, Swollen glands Past Medical History - SOCIAL HISTORY Smoking Status: Former smoker - RESPIRATORY Hx Respiratory Disorders: Yes Hx COPD: Yes Hx Pneumonia: Yes (admitted 11/09/13) - CARDIOVASCULAR Hx Cardio Disorders: Yes Hx Chest Pain: Yes Hx Edema: Yes Hx Hypertension: Yes Hx Irregular Heartbeat: Yes (a-fib) Comment:: leaky valve - NEURO Hx Neuro Disorders: Yes Hx Dementia: Yes - GI Hx GI Disorders: Yes Hx Diverticulitis: Yes - Hx Genitourinary Disorders: Yes Hx UTI: Yes - ENDOCRINE Hx Endocrine Disorders: Yes Hx Diabetes: Yes (hypoglycemia) Hx Thyroid Disease: Yes - MUSCULOSKELETAL Hx Musculoskeletal Disorders: No - PSYCH Hx Psych Problems: No - HEMATOLOGY/ONCOLOGY Hx Hematology/Oncology Disorders: Yes Hx Anemia: Yes Family Medical History Any Significant Family History?: Yes Hx Dementia: Brother/Sister *Dementia Comment: Brother Hx HTN: Brother/Sister H&P Meds/Allergies - Allergies Allergies: Allergies Allergy/AdvReac Type Severity Reaction Status Date / Time erythromycin base AdvReac DIARRHEA Verified 02/18/17 12:20 [Erythromycin Base] morphine AdvReac ALTERED Verified 02/18/17 12:20 MENTAL STATUS - Home Medications Home Medications Medication Instructions Recorded Confirmed Last Taken Diltiazem HCl [Diltiazem 24Hr ER] 180 mg PO DAILY 10/07/17 10/07/17 Unknown - Active Medications Active Medications: Current Medications Acetaminophen (Tylenol 325mg) 650 mg PO Q4H PRN PRN Reason: PAIN - MILD(1-4)/FEVER Albuterol Sulfate () 2.5 mg INH RESP.Q4H PRN PRN Reason: DIFFICULTY IN BREATHING Amlodipine Besylate (Norvasc) 5 mg PO BID [facility] Aspirin (Ecotrin (Ec)) 81 mg PO DAILY [facility] Digoxin (Lanoxin) 125 mcg PO DAILY [facility] Diltiazem HCl (Cardizem Cd) 180 mg PO DAILY [facility] Sodium Chloride () 1,000 mls @ 100 mls/hr IV .Q10H PRN PRN Reason: NAUSEA/VOMITING Last Admin: 10/07/17 17:08 Dose: 100 mls/hr Levofloxacin/Dextrose (Levaquin 500mg Ivpb) 500 mg in 100 mls @ 125 mls/hr IVPB Q24H MIRIAN Stop: 10/13/17 16:01 Levothyroxine Sodium (Synthroid) 25 mcg PO DAILYTHY [facility] Lisinopril (Zestril) 20 mg PO BID [facility] Meloxicam (Mobic) 15 mg PO DAILY [facility] Memantine (Namenda) 10 mg PO BID [facility] Ondansetron HCl (Zofran) 4 mg IVP Q4H PRN PRN Reason: NAUSEA Last Admin: 10/07/17 17:04 Dose: 4 mg Rivaroxaban (Xarelto) 20 mg PO DAILY [facility] Physical Exam - Vital Signs Vital Signs: Vital Signs - Last 24 Hrs Temp Pulse Pulse Resp BP BP Pulse Ox 10/07/17 17:01 97 H 16 91 L 10/07/17 16:05 98.5 F 90 20 87/50 94 L 10/07/17 14:29 98.3 F 98 H 18 97/67 93 L 10/07/17 12:23 101.0 F H 95 H 22 141/64 85 L - General General Appearance: Alert, Oriented x3, Cooperative, Mild distress Limitations: No limitations - Head Head exam: Normal inspection - Eye Eye exam: Normal appearance, PERRL, EOMI Pupils: Normal accommodation - ENT ENT exam: Normal exam, Mucous membranes moist, Normal external ear exam, Normal orophraynx Ear exam: Normal external inspection. negative: External canal tenderness Nasal Exam: Normal inspection. negative: Discharge, Sinus tenderness Mouth exam: Normal external inspection, Tongue normal Teeth exam: Normal inspection. negative: Dental caries Throat exam: Normal inspection. negative: Tonsillar erythema, Tonsillar exudate - Neck Neck exam: Normal inspection, Full ROM. negative: Tenderness - Respiratory Respiratory exam: Normal lung sounds bilaterally. negative: Respiratory distress - Cardiovascular Cardiovascular Exam: Regular rate, Normal rhythm, Normal heart sounds Peripheral Pulses: 3+: Radial (R), Radial (L), Dorsalis Pedis (R), Dorsalis Pedis (L) - GI/Abdominal GI/Abdominal exam: Soft, Normal bowel sounds, Tenderness - Rectal Rectal exam: Deferred - exam: Deferred - Extremities Extremities exam: Normal inspection, Full ROM, Normal capillary refill. negative: Tenderness - Back Back exam: Reports: Normal inspection, Full ROM. Denies: Muscle spasm, Rash noted, Tenderness - Neurological Neurological exam: Alert, CN II-XII intact, Normal gait, Oriented X3 - Psychiatric Psychiatric exam: Normal affect, Normal mood - Skin Skin exam: Dry, Intact, Normal color, Warm Results - Labs Result Diagrams: 10/08/17 06:20 10/08/17 06:20 Labs Last 24 Hours: Laboratory Results - last 24 hr 10/07/17 10/07/17 10/07/17 12:30 12:30 12:30 WBC 18.1 H RBC 5.31 Hgb 13.6 Hct 43.2 MCV 81.4 MCH 25.6 L MCHC 31.5 L RDW 16.1 H Plt Count 371 MPV 9.2 Neutrophils % 82.0 H Band Neutrophils % 8.0 H Lymphocytes % 6.4 L Monocytes % 4.5 Eosinophils % 0.0 Basophils % 0.1 Lymphocytes 9.0 L Monocytes 1.0 Basophils 0.0 Eosinophil Count 0.0 Sodium Potassium Chloride Carbon Dioxide Anion Gap BUN Creatinine Estimated GFR Random Glucose Lactic Acid Calcium Total Bilirubin AST ALT Alkaline Phosphatase Total Protein Albumin Globulin Albumin/Globulin Ratio Urine Color Yellow Urine Appearance Clear Urine pH 7.5 Ur Specific [place] 1.010 Urine Protein Negative Urine Glucose (UA) Negative Urine Ketones Negative Urine Blood Trace-i Urine Nitrite Negative Urine Bilirubin Negative Urine Urobilinogen 1.0 Ur Leukocyte Esterase Large H Urine RBC 0 - 2 Urine WBC 3 - 5 Ur Epithelial Cells 0 - 2 Urine Bacteria 1+ Urine Mucus Moderate Digoxin 0.8 10/07/17 10/07/17 12:50 13:15 WBC RBC Hgb Hct MCV MCH MCHC RDW Plt Count MPV Neutrophils % Band Neutrophils % Lymphocytes % Monocytes % Eosinophils % Basophils % Lymphocytes Monocytes Basophils Eosinophil Count Sodium 138 Potassium 3.6 Chloride 92 L Carbon Dioxide 23.0 Anion Gap 23.0 H BUN 8 Creatinine 0.6 Estimated GFR > 60 Random Glucose 194 H Lactic Acid Cancelled 2.4 H Calcium 9.3 Total Bilirubin 0.60 AST 15 ALT 12 Alkaline Phosphatase 89 Total Protein 7.6 Albumin 4.2 Globulin 3.4 Albumin/Globulin Ratio 1.2 Urine Color Urine Appearance Urine pH Ur Specific [place] Urine Protein Urine Glucose (UA) Urine Ketones Urine Blood Urine Nitrite Urine Bilirubin Urine Urobilinogen Ur Leukocyte Esterase Urine RBC Urine WBC Ur Epithelial Cells Urine Bacteria Urine Mucus Digoxin VTE H&P Assessment - Risk for VTE Risk for VTE: Yes Risk Level: High Risk Assessment Date: 10/07/17 Risk Assessment Time: 17:22 VTE Orders Placed or Will Be Placed: Yes Plan - Inpatient Certification Inpatient Certification: Admit to inpatient care: Based on my medical assessment, after consideration of patient's risk factors (age, co-morbidities and patient presenting symptoms and acuity), I expect that this patient will remain in the hospital greater than or equal to two midnights and that the services needed warrant inpatient care because: Patient Risk Factors: Sepsis Estimated length of stay: The patient may reasonably be expected to be discharged or transferred to a hospital within 96 hours after admission to [facility]. Services needed: [employer] I certify that my determination is in accordance with my understanding of Medicare requirements for reasonable and necessary inpatient services. 10/07/17 17:23 - Detailed Diagnosis and Plan (1) Sepsis Current Visit: Yes Status: Acute Base Code: A41.9 - SEPSIS, UNSPECIFIED ORGANISM Comment: 10/07/17: - CT abdomen: showing left lower lobe opacity. UA: + leukocyte esterases, mininmal WBCs, WBCs: 18K --> 19K, cultures pending - Levofloxacin 500mg Q48H, Nacl 0.9% @ 75 mL/hr. - continuous cardiac monitoring - repeat CBC w/ diff in the morning. (2) Pneumonia Current Visit: Yes Status: Acute Qualifiers: Pneumonia type: due to unspecified organism Laterality: left Lung location: lower lobe of lung Qualified Code(s): J18.1 - Lobar pneumonia, unspecified organism Base Code: J18.9 - PNEUMONIA, UNSPECIFIED ORGANISM Comment: 10/07/17: - CXR showing: small left effusion, bilateral pleural thickening and evidence of COPD, CT abdomen showing consolidation in the left lower lobe. WBCs 19k, currently saturating between 95%-100% on 2 liters nasal cannula. - Levaquin 500mg Q48H, Albuterol treatements Q4H PRN, maintain oxygen sats > 92 % - repeat xchest xray after discharge. (3) UTI (urinary tract infection) Current Visit: Yes Status: Acute Qualifiers: Urinary tract infection type: acute cystitis Hematuria presence: without hematuria Qualified Code(s): N30.00 - Acute cystitis without hematuria Base Code: N39.0 - URINARY TRACT INFECTION, SITE NOT SPECIFIED Comment: 10/07/17: - UA: leukocyte positive, WBCs 3-5 - continue Levaquin 500mg Q48H - D/C aguilar catheter, I/Os: (4) Urinary retention Current Visit: Yes Status: Acute Base Code: R33.9 - RETENTION OF URINE, UNSPECIFIED Comment: 10/07/17: - hydronephrosis on CT abdo/pelvis. - Aguilar cather yielding 1300cc, d/c catheter. - strict I/Os, kidney function stable, repeat BMP in the morning. (5) Atrial fibrillation Current Visit: Yes Status: Acute Base Code: I48.91 - UNSPECIFIED ATRIAL FIBRILLATION Comment: 10/07/17: - on tele overnight reads ... - resume home dose of dig, Dialtzem and Metoprolol with holding parameters. - anticoagualted on Xarelto for chronic a. fib. (6) COPD (chronic obstructive pulmonary disease) Current Visit: Yes Status: Acute Base Code: J44.9 - CHRONIC OBSTRUCTIVE PULMONARY DISEASE, UNSPECIFIED Comment: 10/07/17: - titrate oxygen to maintain saturations > 92 % on 2 liters. - Albuterol Q4H PRN, daily respiratory assessment. (7) Multiple rib fractures Current Visit: Yes Status: Acute Base Code: S22.49XA - MULTIPLE FRACTURES OF RIBS, UNSP SIDE, INIT FOR CLOS FX Comment: 10/07/17: - chest xray indicating possible old rib fractures. - PT/OT consult for evaluation and assessment. - may require home health services at discharge. (8) DVT prophylaxis Current Visit: No Status: Acute Base Code: [id number] - Comment: 10/07/17: - on anticogualtion with Xarelto for A fib. (9) Full code status Current Visit: Yes Status: Acute Base Code: Z78.9 - OTHER SPECIFIED HEALTH STATUS Comment: 10/08/17: FULL CODE - Disposition Continue with IV fluids and abx. Sepsis dx and repeat labs in the morning.
[2017-10-07] MEDS ORDERED: PNEUM 13-VAL/PF 0.5 ML IM ONE (18:00)
[2017-10-07] MEDS ORDERED: ZINC OXIDE 28.35 GM TUBE TOP ONE (20:58)
[2017-10-07] MEDS ORDERED: BISACODYL 10 MG SUPP RC ONE (21:32)
[2017-10-07] MEDS ORDERED: ZINC OXIDE 28.35 GM TUBE TOP PRN (21:47)
[2017-10-07] MEDS: AMLODIPINE BESYLATE 5MG TAB PO SCH (22:34)
[2017-10-07] MEDS: LISINOPRIL 20 MG TABLET PO SCH (22:34)
[2017-10-08] MEDS: ACETAMINOPHEN 325 MG TAB PO PRN ×4 (03:14→21:36)
[2017-10-08] MEDS: LEVOTHYROXINE SODIUM 25 MCG TABLET PO SCH (06:07)
[2017-10-08 06:32] LABS: HEMATOCRIT 35.3 % (35.0-47.0); HEMOGLOBIN 10.9 gm/dl (11.6-16.0); MEAN CELL VOLUME 81.5 fl (81-97); MEAN CORPUSCULAR HGB CONC 30.9 g/dl (32-36); MEAN PLATELET VOLUME 9.5 fl (7.4-10.4); PLATELET COUNT 313 K/uL (130-400); RED BLOOD COUNT 4.33 M/uL (3.80-5.40); RED CELL DISTRIBUTION WIDTH 16.2 % (11.5-14.5); WHITE BLOOD COUNT W/O DIFF 19.4 K/uL (4.2-12.2)
[2017-10-08 06:33] LABS: MEAN CORPUSCULAR HEMOGLOBIN 25.1 pg (27-33)
[2017-10-08 06:44] LABS: BLOOD UREA NITROGEN 21 mg/dL (8-23); CREATININE 0.8 mg/dL (0.5-0.9); EST GLOMERULAR FILTRATION RATE > 60 mL/min; GLUCOSE,RANDOM 149 mg/dL (74-109)
--- NOTE | 2017-10-08 08:52 | Physician Progress Note ---
Subjective - Date Date of Physician Progress Note: 10/08/17 - Subjective Subjective Comment: The patient is awake and alert but poorly oriented. Overnight there is nursing report of constipation and difficult bowel movement with a mix of loose stool and hard formed stool. An order for bisacodyl suppository was given last night. She complains of Objective - Vital Signs Vital Signs: Vital Signs - Last 24 Hrs Temp Pulse Pulse Resp BP BP BP 10/08/17 06:00 97.9 F 88 18 99/56 10/08/17 02:00 97.5 F L 88 19 109/49 10/07/17 22:00 98.1 F 91 H 18 120/61 10/07/17 21:00 18 10/07/17 19:34 80 20 10/07/17 18:49 16 79/40 10/07/17 17:26 90 12 86/40 10/07/17 17:01 97 H 16 10/07/17 16:40 98.3 F 80 12 81/40 10/07/17 16:05 98.5 F 90 20 87/50 10/07/17 14:29 98.3 F 98 H 18 97/67 10/07/17 12:23 101.0 F H 95 H 22 141/64 Pulse Ox 10/08/17 06:00 100 10/08/17 02:00 95 10/07/17 22:00 91 L 10/07/17 21:00 10/07/17 19:34 91 L 10/07/17 18:49 10/07/17 17:26 92 L 10/07/17 17:01 91 L 10/07/17 16:40 89 L 10/07/17 16:05 94 L 10/07/17 14:29 93 L 10/07/17 12:23 85 L - General General Appearance: Alert, Cooperative, No acute distress, Mild distress Limitations: No limitations - Head Head exam: Normal inspection - Eye Eye exam: Normal appearance, PERRL, EOMI Pupils: Normal accommodation - ENT ENT exam: Normal exam, Mucous membranes moist, Normal external ear exam, Normal orophraynx Ear exam: Normal external inspection. negative: External canal tenderness Nasal Exam: Normal inspection. negative: Discharge, Sinus tenderness Mouth exam: Normal external inspection, Tongue normal Teeth exam: Normal inspection. negative: Dental caries Throat exam: Normal inspection. negative: Tonsillar erythema, Tonsillar exudate - Neck Neck exam: Normal inspection, Full ROM. negative: Tenderness - Respiratory Respiratory exam: Normal lung sounds bilaterally. negative: Respiratory distress - Cardiovascular Cardiovascular Exam: Regular rate, Normal rhythm, Normal heart sounds Peripheral Pulses: 3+: Radial (R), Radial (L), Dorsalis Pedis (R), Dorsalis Pedis (L) - GI/Abdominal GI/Abdominal exam: Soft, Normal bowel sounds, Tenderness - Rectal Rectal exam: Deferred - exam: Deferred - Extremities Extremities exam: Normal inspection, Full ROM, Normal capillary refill. negative: Tenderness - Back Back exam: Reports: Normal inspection, Full ROM. Denies: Muscle spasm, Rash noted, Tenderness - Neurological Neurological exam: Alert, CN II-XII intact, Normal gait, Oriented X3 - Psychiatric Psychiatric exam: Normal affect, Normal mood - Skin Skin exam: Dry, Intact, Normal color, Warm Assessment and Plan - Assessment and Plan (1) Sepsis Current Visit: Yes Status: Acute Base Code: A41.9 - SEPSIS, UNSPECIFIED ORGANISM Comment: 10/08/17: - CT abdomen: showing left lower lobe opacity. UA: + leukocyte esterases, mininmal WBCs, WBCs: 18K --> 19K, cultures pending - Levofloxacin 500mg Q48H, Nacl 0.9% @ 75 mL/hr. - continuous cardiac monitoring - repeat CBC w/ diff in the morning. (2) Pneumonia Current Visit: Yes Status: Acute Qualifiers: Pneumonia type: due to unspecified organism Laterality: left Lung location: lower lobe of lung Qualified Code(s): J18.1 - Lobar pneumonia, unspecified organism Base Code: J18.9 - PNEUMONIA, UNSPECIFIED ORGANISM Comment: 10/08/17: - CXR showing: small left effusion, bilateral pleural thickening and evidence of COPD, CT abdomen showing consolidation in the left lower lobe. WBCs 19k, currently saturating between 95%-100% on 2 liters nasal cannula. - Levaquin 500mg Q48H, Albuterol treatements Q4H PRN, maintain oxygen sats > 92 % - repeat xchest xray after discharge. (3) UTI (urinary tract infection) Current Visit: Yes Status: Acute Qualifiers: Urinary tract infection type: acute cystitis Hematuria presence: without hematuria Qualified Code(s): N30.00 - Acute cystitis without hematuria Base Code: N39.0 - URINARY TRACT INFECTION, SITE NOT SPECIFIED Comment: 10/08/17: - UA: leukocyte positive, WBCs 3-5 - continue Levaquin 500mg Q48H - D/C aguilar catheter, I/Os: 150cc/12 hours. (4) Urinary retention Current Visit: Yes Status: Acute Base Code: R33.9 - RETENTION OF URINE, UNSPECIFIED Comment: 10/08/17: - hydronephrosis on CT abdo/pelvis. - Aguilar cather yielding 1300cc, d/c catheter. - strict I/Os, kidney function stable, repeat BMP in the morning. (5) Atrial fibrillation Current Visit: Yes Status: Acute Base Code: I48.91 - UNSPECIFIED ATRIAL FIBRILLATION Comment: 10/08/17: - on tele monitor needs to be on the patient. - resume home dose of dig, Dialtzem and Metoprolol with holding parameters. - anticoagualted on Xarelto for chronic a. fib. (6) Multiple rib fractures Current Visit: Yes Status: Acute Base Code: S22.49XA - MULTIPLE FRACTURES OF RIBS, UNSP SIDE, INIT FOR CLOS FX Comment: 10/08/17: - chest xray indicating possible old rib fractures. - PT/OT consult for evaluation and assessment. - may require home health services at discharge. (7) DVT prophylaxis Current Visit: No Status: Acute Base Code: [id number] - Comment: 10/08/17: - on anticogualtion with Xarelto for A fib. (8) Full code status Current Visit: Yes Status: Acute Base Code: Z78.9 - OTHER SPECIFIED HEALTH STATUS Comment: 10/08/17: FULL CODE - Disposition Disposition: Continue fluids and iv abx Results - Labs Result Diagrams: 10/08/17 06:20 10/08/17 06:20 Labs Last 24 Hours: Laboratory Results - last 24 hr 10/07/17 10/07/17 10/07/17 12:30 12:30 12:30 WBC 18.1 H RBC 5.31 Hgb 13.6 Hct 43.2 MCV 81.4 MCH 25.6 L MCHC 31.5 L RDW 16.1 H Plt Count 371 MPV 9.2 Neutrophils % 82.0 H Band Neutrophils % 8.0 H Lymphocytes % 6.4 L Monocytes % 4.5 Eosinophils % 0.0 Basophils % 0.1 Lymphocytes 9.0 L Monocytes 1.0 Basophils 0.0 Eosinophil Count 0.0 Sodium Potassium Chloride Carbon Dioxide Anion Gap BUN Creatinine Estimated GFR Random Glucose Lactic Acid Calcium Total Bilirubin AST ALT Alkaline Phosphatase Total Protein Albumin Globulin Albumin/Globulin Ratio Urine Color Yellow Urine Appearance Clear Urine pH 7.5 Ur Specific [place] 1.010 Urine Protein Negative Urine Glucose (UA) Negative Urine Ketones Negative Urine Blood Trace-i Urine Nitrite Negative Urine Bilirubin Negative Urine Urobilinogen 1.0 Ur Leukocyte Esterase Large H Urine RBC 0 - 2 Urine WBC 3 - 5 Ur Epithelial Cells 0 - 2 Urine Bacteria 1+ Urine Mucus Moderate Digoxin 0.8 10/07/17 10/07/17 10/08/17 12:50 13:15 06:20 WBC 19.4 H RBC 4.33 Hgb 10.9 L Hct 35.3 MCV 81.5 MCH 25.1 L MCHC 30.9 L RDW 16.2 H Plt Count 313 MPV 9.5 Neutrophils % 59.0 Band Neutrophils % 25.0 H Lymphocytes % Monocytes % Eosinophils % Not Reportable Basophils % Not Reportable Lymphocytes 14.0 L Monocytes 2.0 Basophils Eosinophil Count Sodium 138 Potassium 3.6 Chloride 92 L Carbon Dioxide 23.0 Anion Gap 23.0 H BUN 8 Creatinine 0.6 Estimated GFR > 60 Random Glucose 194 H Lactic Acid Cancelled 2.4 H Calcium 9.3 Total Bilirubin 0.60 AST 15 ALT 12 Alkaline Phosphatase 89 Total Protein 7.6 Albumin 4.2 Globulin 3.4 Albumin/Globulin Ratio 1.2 Urine Color Urine Appearance Urine pH Ur Specific [place] Urine Protein Urine Glucose (UA) Urine Ketones Urine Blood Urine Nitrite Urine Bilirubin Urine Urobilinogen Ur Leukocyte Esterase Urine RBC Urine WBC Ur Epithelial Cells Urine Bacteria Urine Mucus Digoxin 10/08/17 06:20 WBC RBC Hgb Hct MCV MCH MCHC RDW Plt Count MPV Neutrophils % Band Neutrophils % Lymphocytes % Monocytes % Eosinophils % Basophils % Lymphocytes Monocytes Basophils Eosinophil Count Sodium 135 L Potassium 3.5 Chloride 95 L Carbon Dioxide 20.0 L Anion Gap 20.0 H BUN 21 Creatinine 0.8 Estimated GFR > 60 Random Glucose 149 H Lactic Acid Calcium 8.2 L Total Bilirubin AST ALT Alkaline Phosphatase Total Protein Albumin Globulin Albumin/Globulin Ratio Urine Color Urine Appearance Urine pH Ur Specific [place] Urine Protein Urine Glucose (UA) Urine Ketones Urine Blood Urine Nitrite Urine Bilirubin Urine Urobilinogen Ur Leukocyte Esterase Urine RBC Urine WBC Ur Epithelial Cells Urine Bacteria Urine Mucus Digoxin DVT/PE Assessment - Risk for VTE Risk for VTE: No Risk Level: High Risk Assessment Date: 10/07/17 Risk Assessment Time: 17:22 VTE Orders Placed or Will Be Placed: Yes - Active Medicaitons Current Medications: Current Medications Acetaminophen (Tylenol 325mg) 650 mg PO Q4H PRN PRN Reason: PAIN - MILD(1-4)/FEVER Last Admin: 10/08/17 03:14 Dose: 650 mg Albuterol Sulfate () 2.5 mg INH RESP.Q4H PRN PRN Reason: DIFFICULTY IN BREATHING Last Admin: 10/07/17 19:34 Dose: 2.5 mg Amlodipine Besylate (Norvasc) 5 mg PO BID [facility] Last Admin: 10/07/17 22:34 Dose: 5 mg Aspirin (Ecotrin (Ec)) 81 mg PO DAILY [facility] Digoxin (Lanoxin) 125 mcg PO DAILY [facility] Diltiazem HCl (Cardizem Cd) 180 mg PO DAILY [facility] Sodium Chloride () 1,000 mls @ 100 mls/hr IV .Q10H PRN PRN Reason: NAUSEA/VOMITING Last Admin: 10/07/17 17:08 Dose: 100 mls/hr Levofloxacin/Dextrose (Levaquin 500mg Ivpb) 500 mg in 100 mls @ 125 mls/hr IVPB Q48H [facility] Levothyroxine Sodium (Synthroid) 25 mcg PO DAILYTHY [facility] Last Admin: 10/08/17 06:07 Dose: 25 mcg Lisinopril (Zestril) 20 mg PO BID [facility] Last Admin: 10/07/17 22:34 Dose: 20 mg Meloxicam (Mobic) 15 mg PO DAILY [facility] Memantine (Namenda) 10 mg PO BID [facility] Ondansetron HCl (Zofran) 4 mg IVP Q4H PRN PRN Reason: NAUSEA Last Admin: 10/07/17 22:37 Dose: 4 mg Polyethylene Glycol (Miralax) 17 gm PO DAILY [facility] Rivaroxaban (Xarelto) 20 mg PO DAILY [facility] Zinc Oxide (Desitin) 28.35 gm TOP ASDIR PRN PRN Reason: RASH Last Admin: 10/07/17 22:41 Dose: 28.35 gm AMI Plan - Labs Result Diagrams: 10/08/17 06:20 10/08/17 06:20
[2017-10-08] MEDS: DILTIAZEM 180MG CR CAPSULE PO SCH (09:49)
[2017-10-08] MEDS: ASPIRIN 81 MG TABEC PO SCH (09:49)
[2017-10-08] MEDS: DIGOXIN 125 MCG TABLET PO SCH (09:50)
[2017-10-08] MEDS: MEMANTINE HCL 10 MG TABLET PO SCH ×2 (09:50→21:37)
[2017-10-08] MEDS: RIVAROXABAN 20 MG TABLET PO SCH (09:50)
[2017-10-08] MEDS: LISINOPRIL 20 MG TABLET PO SCH ×2 (09:50→21:37)
[2017-10-08] MEDS: POLYETHYLENE GLY 17 GM PACKET PO SCH ×2 (09:52→15:31)
[2017-10-08] MEDS: MELOXICAM 7.5 MG TABLET PO SCH (10:07)
[2017-10-08] MEDS: AMLODIPINE BESYLATE 5MG TAB PO SCH ×2 (10:16→21:37)
--- NOTE | 2017-10-08 10:40 | Rehab Evaluation ---
Patient Information - Patient Information Diagnosis: pneumonia, UTI, sepsis Ordered Treatment: PT Evaluate and Treat Status: Initial Evaluation History: Detail (The patient presented to ED on 10/07/17 with complaints of weakness, vomiting and nausea.) Past Medical/Surgical Hx: PAST MEDICAL/SURGICAL HISTORY Past Surgical History Hyst; thyroid; kenna; appy; sinus PMH - Respiratory Hx Respiratory Disorders Yes Hx Chronic Obstructive Yes Pulmonary Disease (COPD) Hx Pneumonia Yes: admitted 11/09/13 PMH - Cardiovascular Hx Cardiovascular Disorders Yes Hx Chest Pain Yes Hx Congestive Heart Failure Yes Hx Edema Yes Hx Hypertension Yes Hx Irregular Heartbeat Yes: a-fib Hx Transient Ischemic Attacks Yes (TIA) Comment: leaky valve PMH - Neuro Hx Neurological Disorders Yes Hx Dementia Yes Hx Seizures No Hx Transient Ischemic Attacks Yes (TIA) PMH - GI Hx Gastrointestinal Disorders Yes Hx Diverticulitis Yes Hx Weight Loss/Weight Gain Yes PMH - Hx Genitourinary Disorders Yes Patient No Hx Urinary Tract Infection Yes PMH - Endocrine Hx Endocrine Disorders Yes Hx Diabetes Yes: hypoglycemia Hx Thyroid Disease Yes PMH - Musculoskeletal Hx Musculoskeletal Disorders No PMH - Psych Hx Psychiatric Problems No Hx Anxiety Yes Hx Depression Yes PMH - Hematology/Oncology Hx Hematology/Oncology Yes Disorders Hx Anemia Yes Premorbid Status: Detail (The patient was a poor historian however she indicated that she ambulated at home at times without device but used a walker when she felt she needed too.) Social History: Detail (Due to cognitive status patient was unable to relate home environment, however patient lives with son and was recieving Home PT prior to admission.) Precautions: [place], Fall - Time With Patient Total Time Spent With Patient (Min): 30 Treatment Procedures: Detail (Initial Evaluation Moderate complexity due to evolving medical status, numerous co-morbidities and personal factors.) Subjective Information - Subjective Information Per Patient (The patient had numerous complaints of pain primarily L side thoracic region and "bladder". The patient was unable to rate her pain using 0- 10 pain scale.) Objective Data - Mental Status Patient Orientation: Person (The patient knew her name and birthdate. The patient did not know where she was, age or current year. The patient was impulsive and followed simple commands inconsistently.) - ROM Within normal limits (The patient's LE AROM was within functional limits.) - Strength/Tone Other (Unable to assess secondary to cognitive status. The patient's LE was at least functional against gravity (3/5). The patient was able to walke and acheive sit to stand without assistance.) - Bed Mobility Independent (The patient was independent with supine to sit.) - Transfers Independent (The patient was independent with sit to and from stand transfer.) - Balance Balance Sitting: Good (The patient sat on the edge of bed without support.) Balance Standing: Fair (The patient required walker for support to ambulate. The patient's balance was not formally tested.) - Gait Detail (The patient ambulated with 2 wheeled walker to and from bathroom ( 13 feet x 2) with supervision for safety due to impulsivity.) Therapy Assessment - Therapy Assessment Detail (The patient required supervision for safety with all mobility due to cognitive status. The patient was able to complete bed mobility, transfer and ambulate without physical assist. Patient's balance was not formally assessed however patient exhibits poor safety judgement and has had frequent falls which makes her a high risk for falling. The patient could benefit from inpatient PT for balance and further assessment of functional ablilities. Patient's ability to fully participate in PT is currently limited due to medical status. PT will continue to monitor patient throughout [facility] inpatient stay.) Problem List - Problem List Physical Therapy Problem List: Detail (1) Cognitive Status, impulsitivity and poor safety judgement. 2) Decreased ability to complete prolonged physical activity. 3) Impaired balance.) Goals - Goals Physical Therapy Goals: 1) Assess balance using Tinetti Assessment Tool. 2) The patient will tolerate 15 to 20 minutes of physical activity. 3) The patient will ambulate household distances with supervision for safety. Prognosis - Prognosis Moderate Plan - Plan Physical Therapy Plan: PT 1 time a day M-F for balance and LE strengthening exercises, gait and transfer training.
--- NOTE | 2017-10-08 13:44 | Rehab Evaluation ---
Patient Information - Patient Information Diagnosis: pneumonia, UTI, hydronephrosis, rib fracture x 6 Ordered Treatment: OT Evaluate and Treat Status: Initial Evaluation Surgery: No History: Detail (The patient presented to ED on 10/07/17 with complaints of weakness, vomiting and nausea.) Past Medical/Surgical Hx: PAST MEDICAL/SURGICAL HISTORY Past Surgical History Hyst; thyroid; kenna; appy; sinus PMH - Respiratory Hx Respiratory Disorders Yes Hx Chronic Obstructive Yes Pulmonary Disease (COPD) Hx Pneumonia Yes: admitted 11/09/13 PMH - Cardiovascular Hx Cardiovascular Disorders Yes Hx Chest Pain Yes Hx Congestive Heart Failure Yes Hx Edema Yes Hx Hypertension Yes Hx Irregular Heartbeat Yes: a-fib Hx Transient Ischemic Attacks Yes (TIA) Comment: leaky valve PMH - Neuro Hx Neurological Disorders Yes Hx Dementia Yes Hx Seizures No Hx Transient Ischemic Attacks Yes (TIA) PMH - GI Hx Gastrointestinal Disorders Yes Hx Diverticulitis Yes Hx Weight Loss/Weight Gain Yes PMH - Hx Genitourinary Disorders Yes Patient No Hx Urinary Tract Infection Yes PMH - Endocrine Hx Endocrine Disorders Yes Hx Diabetes Yes: hypoglycemia Hx Thyroid Disease Yes PMH - Musculoskeletal Hx Musculoskeletal Disorders No PMH - Psych Hx Psychiatric Problems No Hx Anxiety Yes Hx Depression Yes PMH - Hematology/Oncology Hx Hematology/Oncology Yes Disorders Hx Anemia Yes Premorbid Status: Detail (The patient was a poor historian however she indicated that she ambulated at home at times without device but used a walker when she felt she needed too.) Social History: Detail (Due to cognitive status patient was unable to relate home environment, however patient lives with son and was receiving Home PT prior to admission. She did state that she takes a shower by herself and has a tub seat.) Precautions: [place], Fall, Other (Impaired cognition) - Time With Patient Total Time Spent With Patient (Min): 40 Treatment Procedures: Detail (OT eval low complexity) Subjective Information - Subjective Information Per Patient Objective Data - Pain Pain Present: Yes (Pt reports left sided chest and back pain.) - Mental Status Patient Orientation: Person (Pt oriented to self and birthday only, she was unsure of where she was, age, month, year. She was able to follow commands for evaluation.) - Visual Perception Appears within normal limits for therapeutic activities - ROM Not within normal limits (Allan shoulder AROM impaired possible due to pain from rib fractures, elbow, wrist and hand AROM WNL.) - Strength/Tone Not within normal limits (Not formally assessed although shoulder strength appeared decreased due to pain from rib fractures, remaining UE strength appeared WNL.) - Coordination Appears within normal limits for therapeutic activities - Bed Mobility Independent (Ind with supine to sit.) - Transfers Needs Assist (CG assist for sit to stand from EOB and toilet.) - Balance Balance Sitting: Good Balance Standing: Fair - Sensation Intact - Gait Detail (Pt ambulated several feet in room with 2 wheeled walker and CG assist.) - ADL's/IADL's Detail (Pt required mod assist to doff soiled gown and slippers and don clean gown, briefs and slippers. She was able to complete toileting hygiene Indly. Other self cares not formally assessed as pt was not feeling well.) Therapy Assessment - Therapy Assessment Detail (Pt presents with decreased cognition, decreased endurance and decreased Ind with self cares.) Problem List - Problem List Physical Therapy Problem List: Detail (1) Cognitive Status, impulsitivity and poor safety judgement. 2) Decreased ability to complete prolonged physical activity. 3) Impaired balance.) Occupational Therapy Problem List: Detail (1. Decreased orientation. 2. Decreased Ind with self care tasks. 3. Decreased endurance needed for safe and Ind self cares.) Goals - Goals Physical Therapy Goals: 1) Assess balance using Tinetti Assessment Tool. 2) The patient will tolerate 15 to 20 minutes of physical activity. 3) The patient will ambulate household distances with supervision for safety. Occupational Therapy Goals: 1. Pt will be oriented to location. 2. Pt will be Ind with grooming/hygiene. Prognosis - Prognosis Good Plan - Plan Physical Therapy Plan: PT 1 time a day M-F for balance and LE strengthening exercises, gait and transfer training. Occupational Therapy Plan: OT 2-4 days per week to address cognition, self cares , safety and overall endurance to allow safe return home with son.
[2017-10-08] MEDS: ONDANSETRON HCL IV 4 MG/2 ML VIAL IVP PRN (16:55)
--- NOTE | 2017-10-08 22:36 | RADIOLOGY REPORT ---
EXAM: CHEST 2 VIEWS HISTORY: CHEST PAIN. TECHNIQUE: Frontal and lateral views of the chest. COMPARISON: 06/25/17 chest. FINDINGS: Cardiomegaly. Stable postsurgical change. Osteopenia. COPD. No pneumothorax. Nodular density in the lateral right upper lobe. This measures 11 mm. This is nonspecific. This could relate to an area of scarring. A true pulmonary nodule is not entirely excluded. Recommend short-term follow-up. Small left pleural effusion and/or pleural thickening. Calcified granuloma in the left upper lobe laterally. Biapical pleural thickening. IMPRESSION: 1. COPD. SMALL LEFT EFFUSION/PLEURAL THICKENING. 2. NODULAR OPACITY IN THE LATERAL RIGHT UPPER LOBE, WHICH COULD REFLECT SCARRING. THIS COULD BE FOLLOWED WITH DEDICATED CT CHEST. JOB NUMBER: [id number] MTDD
--- NOTE | 2017-10-08 23:29 | CT SCAN REPORT ---
EXAM: CT SCAN ABDOMEN/PELVIS WO CONTRAST HISTORY: PAIN AND VOMITING. TECHNIQUE: CT abdomen and pelvis without oral or IV contrast. This limits evaluation of bowel and solid visceral organs. COMPARISON: Prior CT 07/30/14.. FINDINGS: Limited evaluation of the lung bases demonstrates an irregular nodule in the inferior aspect of the lateral right upper lobe. This should be followed nonemergently with CT chest. This measures 1.6 x 1.2 cm. There is a small left pleural effusion with nodular air space opacities of the left lung base. Osseous structures are grossly intact. Limited evaluation of the liver, spleen, adrenal glands, pancreas, and left kidney is unremarkable. Moderate right-sided hydronephrosis and hydroureter. No definitive urinary tract calculus , however, there is massive distention of the urinary bladder. Correlate with any history of outlet obstruction. Large amount of stool in the colon. No free air or free fluid. The patient is status post appendectomy, cholecystectomy, and hysterectomy. Surgical clips in the epigastric region. IMPRESSION: 1. MODERATE RIGHT-SIDED HYDRONEPHROSIS WITH SEVERE DISTENTION OF THE URINARY BLADDER. CORRELATION WITH ANY HISTORY OF OUTLET OBSTRUCTION. 2. LEFT PLEURAL EFFUSION WITH EXTENSIVE ADJACENT AIR SPACE OPACITY MAY REFLECT PNEUMONIA. RECOMMEND FOLLOW-UP TO RESOLUTION. 3. NODULAR OPACITY IN THE INFERIOR LATERAL RIGHT UPPER LOBE. THIS SHOULD BE FOLLOWED WITH DEDICATED CT CHEST. 4. ATHEROMATOUS CHANGE. JOB NUMBER: [id number] MTDD
[2017-10-09] MEDS: 0.9 % SODIUM CHLORIDE 1000ML 1,000 ML IV PRN ×2 (01:20→15:35)
[2017-10-09] MEDS: ONDANSETRON HCL IV 4 MG/2 ML VIAL IVP PRN ×2 (01:20→20:18)
[2017-10-09] MEDS: ACETAMINOPHEN 325 MG TAB PO PRN ×4 (04:51→23:45)
[2017-10-09 06:30] LABS: BASO % 0.1 % (0-6); EOS % 0.1 % (0-6); HEMATOCRIT 30.6 % (35.0-47.0); HEMOGLOBIN 9.7 gm/dl (11.6-16.0); LYMPH % 16.7 % (16-45); MEAN CELL VOLUME 80.3 fl (81-97); MEAN CORPUSCULAR HGB CONC 31.7 g/dl (32-36); MEAN PLATELET VOLUME 8.8 fl (7.4-10.4); MONO % 3.1 % (0-9); PLATELET COUNT 244 K/uL (130-400); RED BLOOD COUNT 3.81 M/uL (3.80-5.40); RED CELL DISTRIBUTION WIDTH 16.2 % (11.5-14.5); WHITE BLOOD COUNT W/O DIFF 11.7 K/uL (4.2-12.2)
[2017-10-09 06:32] LABS: MEAN CORPUSCULAR HEMOGLOBIN 25.4 pg (27-33)
[2017-10-09 06:43] LABS: BLOOD UREA NITROGEN 13 mg/dL (8-23); CREATININE 0.5 mg/dL (0.5-0.9); EST GLOMERULAR FILTRATION RATE > 60 mL/min; GLUCOSE,RANDOM 96 mg/dL (74-109)
[2017-10-09] MEDS: LEVOTHYROXINE SODIUM 25 MCG TABLET PO SCH (08:18)
[2017-10-09] MEDS ORDERED: POTASSIUM CHLORIDE 20 MEQ TABLET PO ONE (09:31)
--- NOTE | 2017-10-09 10:00 | Physician Progress Note ---
Subjective - Date Date of Physician Progress Note: 10/09/17 - Subjective Subjective Comment: The patient is awake and alert but poorly oriented. Today she has no new complaint and appears to be resting comfortably in no acute distress. The patient does complaint of no appetite but has not other acute concerns on rounds this morning. Objective - Vital Signs Vital Signs: Vital Signs - Last 24 Hrs Temp Pulse Resp BP BP BP Pulse Ox 10/09/17 05:58 98.0 F 72 18 133/60 95 10/09/17 05:05 95 10/08/17 22:00 98.0 F 83 16 106/48 92 L 10/08/17 18:00 97.8 F 83 16 92/54 97 10/08/17 14:00 97.7 F 85 18 102/56 92 L 10/08/17 13:19 98.6 F 132/65 10/08/17 10:00 98.6 F 90 18 132/65 92 L - General General Appearance: Alert, Cooperative, No acute distress, Mild distress Limitations: No limitations - Head Head exam: Normal inspection - Eye Eye exam: Normal appearance, PERRL, EOMI Pupils: Normal accommodation - ENT ENT exam: Normal exam, Mucous membranes moist, Normal external ear exam, Normal orophraynx Ear exam: Normal external inspection. negative: External canal tenderness Nasal Exam: Normal inspection. negative: Discharge, Sinus tenderness Mouth exam: Normal external inspection, Tongue normal Teeth exam: Normal inspection. negative: Dental caries Throat exam: Normal inspection. negative: Tonsillar erythema, Tonsillar exudate - Neck Neck exam: Normal inspection, Full ROM. negative: Tenderness - Respiratory Respiratory exam: Normal lung sounds bilaterally. negative: Respiratory distress - Cardiovascular Cardiovascular Exam: Regular rate, Normal rhythm, Normal heart sounds Peripheral Pulses: 3+: Radial (R), Radial (L), Dorsalis Pedis (R), Dorsalis Pedis (L) - GI/Abdominal GI/Abdominal exam: Soft, Normal bowel sounds, Tenderness - Rectal Rectal exam: Deferred - exam: Deferred - Extremities Extremities exam: Normal inspection, Full ROM, Normal capillary refill. negative: Tenderness - Back Back exam: Reports: Normal inspection, Full ROM. Denies: Muscle spasm, Rash noted, Tenderness - Neurological Neurological exam: Alert, CN II-XII intact, Normal gait, Oriented X3 - Psychiatric Psychiatric exam: Normal affect, Normal mood - Skin Skin exam: Dry, Intact, Normal color, Warm Assessment and Plan - Assessment and Plan (1) Hypokalemia Current Visit: Yes Status: Acute Base Code: E87.6 - HYPOKALEMIA Comment: /: - K+ 3.2 - replete w/ PO KCL 40meq. - repeat BMp in the morning. (2) Diarrhea Current Visit: Yes Status: Acute Base Code: R19.7 - DIARRHEA, UNSPECIFIED Comment: 10/09/17: - several episodes of loose watery stools yesterday. Prior 24 hours pt experienced constipation and impaction. Bisacodyl suppository given at the time. - ordered stool C. diff. - keep fluids at 20mL/hr Kvo, PO intake encouragement. (3) Sepsis Current Visit: Yes Status: Acute Base Code: A41.9 - SEPSIS, UNSPECIFIED ORGANISM Comment: 10/09/17: - CT abdomen: showing left lower lobe opacity. UA: + leukocyte esterases, mininmal WBCs, WBCs: 18K --> 19K-->11K cultures still pending, pt afebrile over the past 24 hours. - Levofloxacin 500mg Q48H, dose today, Nacl 0.9% to KVO @ 20mL. - continuous cardiac monitoring (4) Pneumonia Current Visit: Yes Status: Acute Qualifiers: Pneumonia type: due to unspecified organism Laterality: left Lung location: lower lobe of lung Qualified Code(s): J18.1 - Lobar pneumonia, unspecified organism Base Code: J18.9 - PNEUMONIA, UNSPECIFIED ORGANISM Comment: 10/09/17: - CXR showing: small left effusion, bilateral pleural thickening and evidence of COPD, CT abdomen showing consolidation in the left lower lobe. WBCs 19k, currently saturating between 95%-100% RA - Levaquin 500mg Q48H, Albuterol treatements Q4H PRN, maintain oxygen sats > 92 % - repeat xchest xray after discharge. (5) UTI (urinary tract infection) Current Visit: Yes Status: Acute Qualifiers: Urinary tract infection type: acute cystitis Hematuria presence: without hematuria Qualified Code(s): N30.00 - Acute cystitis without hematuria Base Code: N39.0 - URINARY TRACT INFECTION, SITE NOT SPECIFIED Comment: 10/09/17: - UA: leukocyte positive, WBCs 3-5 - continue Levaquin 500mg Q48H - D/C aguilar catheter, I/Os: 400cc in catch bag this morning. (6) Urinary retention Current Visit: Yes Status: Acute Base Code: R33.9 - RETENTION OF URINE, UNSPECIFIED Comment: 10/09/17: - hydronephrosis on CT abdo/pelvis. - Aguilar cather yielding 1300cc, d/c catheter. - strict I/Os, kidney function stable, repeat BMP in the morning. (7) Atrial fibrillation Current Visit: Yes Status: Acute Base Code: I48.91 - UNSPECIFIED ATRIAL FIBRILLATION Comment: 10/09/17: - on tele monitor needs to be on the patient. - resume home dose of dig, Dialtzem and Metoprolol with holding parameters. - anticoagualted on Xarelto for chronic a. fib. (8) HTN (hypertension) Current Visit: Yes Status: Acute Base Code: I10 - ESSENTIAL (PRIMARY) HYPERTENSION Comment: 10/09/17: - borderline blood pressure readings with SBP in the low 100s. - BP medications (Norvasc,Lisinopril and Metoprolol) with holding parameters for systolic < 120 mmHg. (9) Multiple rib fractures Current Visit: Yes Status: Acute Base Code: S22.49XA - MULTIPLE FRACTURES OF RIBS, UNSP SIDE, INIT FOR CLOS FX Comment: 10/09/17: - chest xray indicating possible old rib fractures. - PT/OT evaluation and assessment completed with recommendation for daily strengthening and gai training. Pt, moderately independent of ADLs/IDALs - home health services at discharge. (10) Dementia Current Visit: Yes Status: Acute Base Code: F03.90 - UNSPECIFIED DEMENTIA WITHOUT BEHAVIORAL DISTURBANCE Comment: 10/09/17: - advanced dementia on Namenda - pt is sundowning and becomes more confused late in the day. - failure to thrive primarly as result of mental status. (11) DVT prophylaxis Current Visit: No Status: Acute Base Code: [id number] - Comment: 10/09/17: - on anticogualtion with Xarelto for A fib. (12) Full code status Current Visit: Yes Status: Acute Base Code: Z78.9 - OTHER SPECIFIED HEALTH STATUS Comment: 10/09/17: FULL CODE - Disposition Disposition: KVO fluids, replete K+, repeat BMP, likely placement v. or home health assist at d/c Results - Labs Result Diagrams: 10/09/17 06:15 10/09/17 06:15 Labs Last 24 Hours: Laboratory Results - last 24 hr 10/09/17 10/09/17 10/09/17 06:15 06:15 09:39 WBC 11.7 RBC 3.81 Hgb 9.7 L Hct 30.6 L MCV 80.3 L MCH 25.4 L MCHC 31.7 L RDW 16.2 H Plt Count 244 MPV 8.8 Gran % 80.0 Lymphocytes % 16.7 Monocytes % 3.1 Eosinophils % 0.1 Basophils % 0.1 Sodium 133 L Potassium 3.2 L Chloride 98 Carbon Dioxide 22.0 Anion Gap 13.0 BUN 13 Creatinine 0.5 Estimated GFR > 60 Random Glucose 96 Calcium 8.0 L C. difficile Ag & Toxin Cancelled DVT/PE Assessment - Risk for VTE Risk for VTE: No Risk Level: High Risk Assessment Date: 10/07/17 Risk Assessment Time: 17:22 VTE Orders Placed or Will Be Placed: Yes - Active Medicaitons Current Medications: Current Medications Acetaminophen (Tylenol 325mg) 650 mg PO Q4H PRN PRN Reason: PAIN - MILD(1-4)/FEVER Last Admin: 10/09/17 04:51 Dose: 650 mg Albuterol Sulfate () 2.5 mg INH RESP.Q4H PRN PRN Reason: DIFFICULTY IN BREATHING Last Admin: 10/07/17 19:34 Dose: 2.5 mg Amlodipine Besylate (Norvasc) 5 mg PO BID [facility] Aspirin (Ecotrin (Ec)) 81 mg PO DAILY [facility] Last Admin: 10/08/17 09:49 Dose: 81 mg Digoxin (Lanoxin) 125 mcg PO DAILY [facility] Last Admin: 10/08/17 09:50 Dose: 125 mcg Diltiazem HCl (Cardizem Cd) 180 mg PO DAILY [facility] Last Admin: 10/08/17 09:49 Dose: 180 mg Levofloxacin/Dextrose (Levaquin 500mg Ivpb) 500 mg in 100 mls @ 125 mls/hr IVPB Q48H [facility] Sodium Chloride () 1,000 mls @ 75 mls/hr IV .[id number] PRN PRN Reason: LARGE VOLUME IV Last Admin: 10/09/17 01:20 Dose: 75 mls/hr Levothyroxine Sodium (Synthroid) 25 mcg PO DAILYTHY [facility] Last Admin: 10/09/17 08:18 Dose: 25 mcg Lisinopril (Zestril) 20 mg PO BID [facility] Meloxicam (Mobic) 15 mg PO DAILY [facility] Last Admin: 10/08/17 10:07 Dose: 15 mg Memantine (Namenda) 10 mg PO BID [facility] Last Admin: 10/08/17 21:37 Dose: 10 mg Ondansetron HCl (Zofran) 4 mg IVP Q4H PRN PRN Reason: NAUSEA Last Admin: 10/09/17 01:20 Dose: 4 mg Polyethylene Glycol (Miralax) 17 gm PO DAILY [facility] Last Admin: 10/08/17 15:31 Dose: Not Given Rivaroxaban (Xarelto) 20 mg PO DAILY [facility] Last Admin: 10/08/17 09:50 Dose: 20 mg Zinc Oxide (Desitin) 28.35 gm TOP ASDIR PRN PRN Reason: RASH Last Admin: 10/07/17 22:41 Dose: 28.35 gm AMI Plan - Labs Result Diagrams: 10/09/17 06:15 10/09/17 06:15
[2017-10-09] MEDS: ASPIRIN 81 MG TABEC PO SCH (11:11)
[2017-10-09] MEDS: MELOXICAM 7.5 MG TABLET PO SCH (11:12)
[2017-10-09] MEDS: AMLODIPINE BESYLATE 5MG TAB PO SCH ×2 (11:12→22:01)
[2017-10-09] MEDS: DILTIAZEM 180MG CR CAPSULE PO SCH (11:12)
[2017-10-09] MEDS: DIGOXIN 125 MCG TABLET PO SCH (11:12)
[2017-10-09] MEDS: RIVAROXABAN 20 MG TABLET PO SCH (11:13)
[2017-10-09] MEDS: LISINOPRIL 20 MG TABLET PO SCH ×2 (11:13→22:01)
[2017-10-09] MEDS: MEMANTINE HCL 10 MG TABLET PO SCH ×2 (11:13→22:01)
[2017-10-09] MEDS: POLYETHYLENE GLY 17 GM PACKET PO SCH (11:14)
[2017-10-09] MEDS: LEVOFLOXACIN 500MG IVPB 500 MG/100 ML BAG IVPB SCH (15:36)
[2017-10-10] MEDS: 0.9 % SODIUM CHLORIDE 1000ML 1,000 ML IV PRN ×2 (04:44→18:08)
[2017-10-10] MEDS: LEVOTHYROXINE SODIUM 25 MCG TABLET PO SCH (06:12)
--- NOTE | 2017-10-10 10:21 | Physician Progress Note ---
Subjective - Date Date of Physician Progress Note: 10/10/17 - Subjective Subjective Comment: The patient is awake and alert but poorly oriented. Today she has no new complaint and appears to be resting comfortably in no acute distress. The patient does complaint of no appetite but has not other acute concerns on rounds this morning. Location: Abdomen Radiation: Abdomen Severity scale (1-10): 4 Quality: Aching Objective - Vital Signs Vital Signs: Vital Signs - Last 24 Hrs Temp Pulse Resp BP BP Pulse Ox 10/10/17 09:27 98.1 F 94 H 16 138/62 94 L 10/10/17 06:00 98.3 F 78 16 125/55 91 L 10/10/17 02:00 98.7 F 87 18 126/58 92 L 10/09/17 22:00 98.4 F 78 16 146/63 94 L 10/09/17 21:58 146/63 10/09/17 21:00 78 16 10/09/17 18:00 97.9 F 79 18 132/58 - General General Appearance: Alert, Cooperative, No acute distress, Mild distress Limitations: No limitations - Head Head exam: Normal inspection - Eye Eye exam: Normal appearance, PERRL, EOMI Pupils: Normal accommodation - ENT ENT exam: Normal exam, Mucous membranes moist, Normal external ear exam, Normal orophraynx Ear exam: Normal external inspection. negative: External canal tenderness Nasal Exam: Normal inspection. negative: Discharge, Sinus tenderness Mouth exam: Normal external inspection, Tongue normal Teeth exam: Normal inspection. negative: Dental caries Throat exam: Normal inspection. negative: Tonsillar erythema, Tonsillar exudate - Neck Neck exam: Normal inspection, Full ROM. negative: Tenderness - Respiratory Respiratory exam: Normal lung sounds bilaterally. negative: Respiratory distress - Cardiovascular Cardiovascular Exam: Regular rate, Normal rhythm, Normal heart sounds Peripheral Pulses: 3+: Radial (R), Radial (L), Dorsalis Pedis (R), Dorsalis Pedis (L) - GI/Abdominal GI/Abdominal exam: Soft, Normal bowel sounds, Tenderness - Rectal Rectal exam: Deferred - exam: Deferred - Extremities Extremities exam: Normal inspection, Full ROM, Normal capillary refill. negative: Tenderness - Back Back exam: Reports: Normal inspection, Full ROM. Denies: Muscle spasm, Rash noted, Tenderness - Neurological Neurological exam: Alert, CN II-XII intact, Normal gait, Oriented X3 - Psychiatric Psychiatric exam: Normal affect, Normal mood - Skin Skin exam: Dry, Intact, Normal color, Warm Assessment and Plan - Assessment and Plan (1) Hypokalemia Current Visit: Yes Status: Acute Base Code: E87.6 - HYPOKALEMIA Comment: 10/10/17: - K+ 3.2 --> pending labs. - replete w/ PO KCL as needed - repeat BMp in the morning. (2) Diarrhea Current Visit: Yes Status: Acute Base Code: R19.7 - DIARRHEA, UNSPECIFIED Comment: 10/10/17: - several episodes of loose watery stools yesterday. Prior 24 hours pt experienced constipation and impaction. Bisacodyl suppository given at the time. - ordered stool C. diff. - keep fluids at 20mL/hr Kvo, PO intake encouragement. (3) Sepsis Current Visit: Yes Status: Acute Base Code: A41.9 - SEPSIS, UNSPECIFIED ORGANISM Comment: 10/10/17: - CT abdomen: showing left lower lobe opacity. UA: + leukocyte esterases, mininmal WBCs, WBCs: 18K --> 19K-->11K, cultures negative, pt afebrile over the past 24 hours. - Levofloxacin 500mg Q48H, dose today, Nacl 0.9% to KVO @ 20mL. - continuous cardiac monitoring (4) Pneumonia Current Visit: Yes Status: Acute Qualifiers: Pneumonia type: due to unspecified organism Laterality: left Lung location: lower lobe of lung Qualified Code(s): J18.1 - Lobar pneumonia, unspecified organism Base Code: J18.9 - PNEUMONIA, UNSPECIFIED ORGANISM Comment: 10/10/17: - CXR showing: small left effusion, bilateral pleural thickening and evidence of COPD, CT abdomen showing consolidation in the left lower lobe. WBCs 19k, currently saturating between 95%-100% RA - Levaquin 500mg Q48H, Albuterol treatements Q4H PRN, maintain oxygen sats > 92 % - repeat xchest xray after discharge. (5) UTI (urinary tract infection) Current Visit: Yes Status: Acute Qualifiers: Urinary tract infection type: acute cystitis Hematuria presence: without hematuria Qualified Code(s): N30.00 - Acute cystitis without hematuria Base Code: N39.0 - URINARY TRACT INFECTION, SITE NOT SPECIFIED Comment: 10/10/17: - UA: leukocyte positive, WBCs 3-5 - continue Levaquin 500mg Q48H - Roberto d/cd. (6) Urinary retention Current Visit: Yes Status: Acute Base Code: R33.9 - RETENTION OF URINE, UNSPECIFIED Comment: 10/10/17: - hydronephrosis on CT abdo/pelvis. - Roberto cather yielding 1300cc, d/c catheter. (7) Atrial fibrillation Current Visit: Yes Status: Acute Base Code: I48.91 - UNSPECIFIED ATRIAL FIBRILLATION Comment: 10/10/17: - on tele monitor needs to be on the patient. - resume home dose of dig, Dialtzem and Metoprolol with holding parameters. - anticoagualted on Xarelto for chronic a. fib. (8) HTN (hypertension) Current Visit: Yes Status: Acute Base Code: I10 - ESSENTIAL (PRIMARY) HYPERTENSION Comment: 10/10/17: - borderline blood pressure readings with SBP in the low 100s. - BP medications (Norvasc,Lisinopril and Metoprolol) with holding parameters for systolic < 120 mmHg. (9) Multiple rib fractures Current Visit: Yes Status: Acute Base Code: S22.49XA - MULTIPLE FRACTURES OF RIBS, UNSP SIDE, INIT FOR CLOS FX Comment: 10/10/17: - chest xray indicating possible old rib fractures. - PT/OT evaluation and assessment completed with recommendation for daily strengthening and gai training. Pt, moderately independent of ADLs/IDALs - home health services at discharge. (10) Dementia Current Visit: Yes Status: Acute Base Code: F03.90 - UNSPECIFIED DEMENTIA WITHOUT BEHAVIORAL DISTURBANCE Comment: 10/10/17: - advanced dementia on Namenda - pt is sundowning and becomes more confused late in the day. - failure to thrive primarly as result of mental status. (11) DVT prophylaxis Current Visit: No Status: Acute Base Code: ALB4330 - Comment: 10/09/17: - on anticogualtion with Xarelto for A fib. (12) Full code status Current Visit: Yes Status: Acute Base Code: Z78.9 - OTHER SPECIFIED HEALTH STATUS Comment: 10/10/17: FULL CODE - Disposition Disposition: KVO fluids, replete K+ as needed, likely placement v. or home health assist at d /c Results - Labs Result Diagrams: 10/09/17 06:15 10/09/17 06:15 Labs Last 24 Hours: Laboratory Results - last 24 hr 10/09/17 20:30 C. difficile Ag & Toxin Not detected DVT/PE Assessment - Risk for VTE Risk for VTE: No Risk Level: High Risk Assessment Date: 10/07/17 Risk Assessment Time: 17:22 VTE Orders Placed or Will Be Placed: Yes - Active Medicaitons Current Medications: Current Medications Acetaminophen (Tylenol 325mg) 650 mg PO Q4H PRN PRN Reason: PAIN - MILD(1-4)/FEVER Last Admin: 10/09/17 23:45 Dose: 650 mg Albuterol Sulfate () 2.5 mg INH RESP.Q4H PRN PRN Reason: DIFFICULTY IN BREATHING Last Admin: 10/07/17 19:34 Dose: 2.5 mg Amlodipine Besylate (Norvasc) 5 mg PO BID [facility] Last Admin: 10/09/17 22:01 Dose: 5 mg Aspirin (Ecotrin (Ec)) 81 mg PO DAILY [facility] Last Admin: 10/09/17 11:11 Dose: 81 mg Digoxin (Lanoxin) 125 mcg PO DAILY [facility] Last Admin: 10/09/17 11:12 Dose: 125 mcg Diltiazem HCl (Cardizem Cd) 180 mg PO DAILY [facility] Last Admin: 10/09/17 11:12 Dose: 180 mg Levofloxacin/Dextrose (Levaquin 500mg Ivpb) 500 mg in 100 mls @ 125 mls/hr IVPB Q48H [facility] Last Infusion: 10/09/17 17:33 Dose: Infused Sodium Chloride () 1,000 mls @ 75 mls/hr IV .[id number] PRN PRN Reason: LARGE VOLUME IV Last Admin: 10/10/17 04:44 Dose: 75 mls/hr [facility] Admin: 10/10/17 06:12 Dose: 25 mcg Lisinopril (Zestril) 20 mg PO BID [facility] Last Admin: 10/09/17 22:01 Dose: 20 mg Meloxicam (Mobic) 15 mg PO DAILY [facility] Last Admin: 10/09/17 11:12 Dose: 15 mg Memantine (Namenda) 10 mg PO BID [facility] Last Admin: 10/09/17 22:01 Dose: 10 mg Ondansetron HCl (Zofran) 4 mg IVP Q4H PRN PRN Reason: NAUSEA Last Admin: 10/09/17 20:18 Dose: 4 mg Rivaroxaban (Xarelto) 20 mg PO DAILY [facility] Last Admin: 10/09/17 11:13 Dose: 20 mg Zinc Oxide (Desitin) 28.35 gm TOP ASDIR PRN PRN Reason: RASH Last Admin: 10/07/17 22:41 Dose: 28.35 gm AMI Plan - Labs Result Diagrams: 10/09/17 06:15 10/09/17 06:15
[2017-10-10] MEDS: MEMANTINE HCL 10 MG TABLET PO SCH ×2 (10:44→22:43)
[2017-10-10] MEDS: AMLODIPINE BESYLATE 5MG TAB PO SCH ×2 (10:45→22:43)
[2017-10-10] MEDS: RIVAROXABAN 20 MG TABLET PO SCH (10:45)
[2017-10-10] MEDS: ASPIRIN 81 MG TABEC PO SCH (10:45)
[2017-10-10] MEDS: MELOXICAM 7.5 MG TABLET PO SCH (10:45)
[2017-10-10] MEDS: DILTIAZEM 180MG CR CAPSULE PO SCH (10:45)
[2017-10-10] MEDS: LISINOPRIL 20 MG TABLET PO SCH ×2 (10:45→22:43)
[2017-10-10] MEDS: DIGOXIN 125 MCG TABLET PO SCH (10:45)
[2017-10-10] MEDS ORDERED: MIRTAZAPINE 15 MG TABLET PO SCH (22:00)
[2017-10-11] MEDS: ONDANSETRON HCL IV 4 MG/2 ML VIAL IVP PRN (01:20)
[2017-10-11] MEDS: LEVOTHYROXINE SODIUM 25 MCG TABLET PO SCH (06:22)
[2017-10-11 09:14] LABS: BLOOD UREA NITROGEN 4 mg/dL (8-23); CREATININE 0.4 mg/dL (0.5-0.9); EST GLOMERULAR FILTRATION RATE > 60 mL/min; GLUCOSE,RANDOM 93 mg/dL (74-109)
[2017-10-11] MEDS: 0.9 % SODIUM CHLORIDE 1000ML 1,000 ML IV PRN (09:31)
[2017-10-11] MEDS ORDERED: POTASSIUM CHLORIDE 20 MEQ TABLET PO ONE (09:36)
[2017-10-11] MEDS ORDERED: POTASSIUM CHL 20MEQ IN 1L NS 20 MEQ/1,000 ML BAG IV ONE (09:37)
--- NOTE | 2017-10-11 10:21 | Discharge Summary ---
Providers Discharge Summary Date: 10/11/17 Date of admission: 10/07/17 16:24 Attending physician: SHAZIA GRANDA Primary care physician: SHAZIA GRANDA Consults: Consult Orders 10/07/17 17:38 Consult - Case Management Now Comment: Reason For Exam: discharge needs Physical Exam - Vital Signs Vital Signs: Vital Signs - Last 24 Hrs Temp Pulse Resp BP BP Pulse Ox 10/11/17 06:00 98.9 F 99 H 17 154/76 97 10/11/17 01:41 98.8 F 111 H 18 155/67 97 10/10/17 21:51 98.5 F 110 H 17 150/76 94 L 10/10/17 21:00 110 H 17 10/10/17 18:00 97.8 F 92 H 16 126/67 95 - General General Appearance: Alert, Cooperative, No acute distress, Mild distress Limitations: No limitations - Head Head exam: Normal inspection - Eye Eye exam: Normal appearance, PERRL, EOMI Pupils: Normal accommodation - ENT ENT exam: Normal exam, Mucous membranes moist, Normal external ear exam, Normal orophraynx Ear exam: Normal external inspection. negative: External canal tenderness Nasal Exam: Normal inspection. negative: Discharge, Sinus tenderness Mouth exam: Normal external inspection, Tongue normal Teeth exam: Normal inspection. negative: Dental caries Throat exam: Normal inspection. negative: Tonsillar erythema, Tonsillar exudate - Neck Neck exam: Normal inspection, Full ROM. negative: Tenderness - Respiratory Respiratory exam: Normal lung sounds bilaterally. negative: Respiratory distress - Cardiovascular Cardiovascular Exam: Regular rate, Normal rhythm, Normal heart sounds Peripheral Pulses: 3+: Radial (R), Radial (L), Dorsalis Pedis (R), Dorsalis Pedis (L) - GI/Abdominal GI/Abdominal exam: Soft, Normal bowel sounds, Tenderness - Rectal Rectal exam: Deferred - exam: Deferred - Extremities Extremities exam: Normal inspection, Full ROM, Normal capillary refill. negative: Tenderness - Back Back exam: Reports: Normal inspection, Full ROM. Denies: Muscle spasm, Rash noted, Tenderness - Neurological Neurological exam: Alert, CN II-XII intact, Normal gait, Oriented X3 - Psychiatric Psychiatric exam: Normal affect, Normal mood - Skin Skin exam: Dry, Intact, Normal color, Warm Hospitalization - Hospitalization Admission Diagnosis: lll pneumonia, hydronephrosis, urinary retention, uti, lung nodule, 6 fxd ribs - Problem List/Discharge Diagnosis (1) Hypokalemia Current Visit: Yes Status: Acute Base Code: E87.6 - HYPOKALEMIA Comment: 10/11/17: - K+ 3.2 --> pending labs. - replete w/ PO KCL, K+ 2.8 this morning. (2) Diarrhea Current Visit: Yes Status: Acute Base Code: R19.7 - DIARRHEA, UNSPECIFIED Comment: 10/11/17: - several episodes of loose watery stools yesterday. Prior 24 hours pt experienced constipation and impaction. Bisacodyl suppository given at the time. - stool C. diff. negative - keep fluids at 20mL/hr Kvo, PO intake encouragement. (3) Sepsis Current Visit: Yes Status: Acute Base Code: A41.9 - SEPSIS, UNSPECIFIED ORGANISM Comment: 10/11/17: - CT abdomen: showing left lower lobe opacity. UA: + leukocyte esterases, mininmal WBCs, WBCs: 18K --> 19K-->11K, cultures negative, pt afebrile over the past 24 hours. - Levofloxacin 500mg Q48H, Nacl 0.9% to KVO @ 20mL. - continuous cardiac monitoring (4) Pneumonia Current Visit: Yes Status: Acute Discharge Diagnosis: Pneumonia type: due to unspecified organism Laterality: left Lung location: lower lobe of lung Qualified Code(s): J18.1 - Lobar pneumonia, unspecified organism Base Code: J18.9 - PNEUMONIA, UNSPECIFIED ORGANISM Comment: 10/11/17: - CXR showing: small left effusion, bilateral pleural thickening and evidence of COPD, CT abdomen showing consolidation in the left lower lobe. WBCs 19k, currently saturating between 95%-100% RA - Levaquin 500mg Q48H, Albuterol treatements Q4H PRN, maintain oxygen sats > 92 % - repeat xchest xray after discharge. (5) UTI (urinary tract infection) Current Visit: Yes Status: Acute Discharge Diagnosis: Urinary tract infection type: acute cystitis Hematuria presence: without hematuria Qualified Code(s): N30.00 - Acute cystitis without hematuria Base Code: N39.0 - URINARY TRACT INFECTION, SITE NOT SPECIFIED Comment: 10/11/17: - UA: leukocyte positive, WBCs 3-5 - continue Levaquin 500mg Q48H - Aguilar d/cd. (6) Urinary retention Current Visit: Yes Status: Acute Base Code: R33.9 - RETENTION OF URINE, UNSPECIFIED Comment: 10/11/17: - hydronephrosis on CT abdo/pelvis. - Aguilar cather yielding 1300cc, d/c catheter. (7) Atrial fibrillation Current Visit: Yes Status: Acute Base Code: I48.91 - UNSPECIFIED ATRIAL FIBRILLATION Comment: 10/11/17: - on tele monitor needs to be on the patient. - resume home dose of dig, Dialtzem and Metoprolol with holding parameters. - anticoagualted on Xarelto for chronic a. fib. (8) HTN (hypertension) Current Visit: Yes Status: Acute Base Code: I10 - ESSENTIAL (PRIMARY) HYPERTENSION Comment: 10/11/17: - borderline blood pressure readings with SBP in the low 100s. - BP medications (Norvasc,Lisinopril and Metoprolol) with holding parameters for systolic < 120 mmHg. (9) Multiple rib fractures Current Visit: Yes Status: Acute Base Code: S22.49XA - MULTIPLE FRACTURES OF RIBS, UNSP SIDE, INIT FOR CLOS FX Comment: 10/11/17: - chest xray indicating possible old rib fractures. - PT/OT evaluation and assessment completed with recommendation for daily strengthening and gai training. Pt, moderately independent of ADLs/IDALs - home health services at discharge. (10) Dementia Current Visit: Yes Status: Acute Base Code: F03.90 - UNSPECIFIED DEMENTIA WITHOUT BEHAVIORAL DISTURBANCE Comment: 10/11/17: - advanced dementia on Namenda - pt is sundowning and becomes more confused late in the day. - failure to thrive primarly as result of mental status. (11) DVT prophylaxis Current Visit: No Status: Acute Base Code: [id number] - Comment: 10/11/17: - on anticogualtion with Xarelto for A fib. (12) Full code status Current Visit: Yes Status: Acute Base Code: Z78.9 - OTHER SPECIFIED HEALTH STATUS Comment: 10/11/17: FULL CODE - Disposition D/C today with home health - Hospitalization Course Hospital Course: Mrs. Ewars is a 86 y/o female presenting with nausea, vomiting and weakness. As per the patient's son she had diarrhea about a weak ago and has had a poor appetite since. She also started to have fevers over the past 24 hours which were waxing and waning. The patient's son is her caregiver at home and reports that she has had difficulty getting to the rest room and most recently had a fall injuring her back on the bathtub a few weeks ago. On arrival to the ED the patient was noted to have an elevated white count, fever and hypotension. UA showed minimal WBCs, leukocyte esterases and chest xray positive for a left lung infiltrate. Abdominal CT/Pelvis showed marked hydronephrosis on the right and significant bladder retention. A aguilar catheter was placed yielding 1300cc of urine. The patient is admitted for sepsis due to UTI and Pneumonia of the left lower lung. On bedside examination this afternoon the patient is awake, alert but poorly oriented. She has a history of dementia and a review of systems is not attainable at this time. She is hemodynamically stable on admission. 10/08: The patient had copius bowel movements over the first 24 hours of admission. She had significant constipation and impaction but had loose stool leakage around the impacted feces. She was given bisacodyl suppository and she continued to have loose watery movements that where non-bloody. Labs show elevated white count 17K --> 19K 10/09: She complained of abdominal/thoracic pain which she says has been off and on since she fell at home. She is confused and appears more disoriented. Potassium is at 3.2, repleted with 40meq PO. She has poor oral intake and says that she has no appetite. White count dropped to 11.7. BP medications held due to low readings. 10/10: The patient improved yesterday and is sitting up at bedside. She is alert but poorly oriented. No new physical complaint noted. Started Remeron 15mg QHS for appetite stimulation. 10/11: Alert, awake able to ambulate with assistance. Hypokalemia 2.8. Repleting K+ with KCL 40meq PO and 20 Meq IV. Stable for discharge home. Procedures: Imaging and X-Rays 10/07/17 12:38 CHEST 2 VIEWS [RAD] Stat 10/07/17 14:03 ABDOMEN/PELVIS WO CONTRAST [CT] Stat Abnormal Labs: Abnormal Lab Results 10/07/17 10/07/17 10/07/17 Range/Units 12:30 12:30 12:50 WBC 18.1 H (4.2-12.2) K/uL Hgb (11.6-16.0) gm/dl Hct (35.0-47.0) % MCV (81-97) fl MCH 25.6 L (27-33) pg MCHC 31.5 L (32-36) g/dl RDW 16.1 H (11.5-14.5) % Neutrophils % 82.0 H (47-80) % Band Neutrophils % 8.0 H (0-5) % Lymphocytes % 6.4 L (16-45) % Lymphocytes 9.0 L (16-45) % Sodium (136-145) mmol/L Potassium (3.4-4.5) mmol/L Chloride 92 L (98-107) mmol/L Carbon Dioxide (22-29) mmol/L Anion Gap 23.0 H (7-16) BUN (8-23) mg/dL Creatinine (0.5-0.9) mg/dL Random Glucose 194 H (74-109) mg/dL Lactic Acid (0.5-2.2) mmol/L Calcium (8.8-10.2) mg/dL Ur Leukocyte Esterase Large H (NEGATIVE) 10/07/17 10/08/17 10/08/17 Range/Units 13:15 06:20 06:20 WBC 19.4 H (4.2-12.2) K/uL Hgb 10.9 L (11.6-16.0) gm/dl Hct (35.0-47.0) % MCV (81-97) fl MCH 25.1 L (27-33) pg MCHC 30.9 L (32-36) g/dl RDW 16.2 H (11.5-14.5) % Neutrophils % (47-80) % Band Neutrophils % 25.0 H (0-5) % Lymphocytes % (16-45) % Lymphocytes 14.0 L (16-45) % Sodium 135 L (136-145) mmol/L Potassium (3.4-4.5) mmol/L Chloride 95 L (98-107) mmol/L Carbon Dioxide 20.0 L (22-29) mmol/L Anion Gap 20.0 H (7-16) BUN (8-23) mg/dL Creatinine (0.5-0.9) mg/dL Random Glucose 149 H (74-109) mg/dL Lactic Acid 2.4 H (0.5-2.2) mmol/L Calcium 8.2 L (8.8-10.2) mg/dL Ur Leukocyte Esterase (NEGATIVE) 10/09/17 10/09/17 10/11/17 Range/Units 06:15 06:15 08:55 WBC (4.2-12.2) K/uL Hgb 9.7 L (11.6-16.0) gm/dl Hct 30.6 L (35.0-47.0) % MCV 80.3 L (81-97) fl MCH 25.4 L (27-33) pg MCHC 31.7 L (32-36) g/dl RDW 16.2 H (11.5-14.5) % Neutrophils % (47-80) % Band Neutrophils % (0-5) % Lymphocytes % (16-45) % Lymphocytes (16-45) % Sodium 133 L (136-145) mmol/L Potassium 3.2 L 2.8 L* (3.4-4.5) mmol/L Chloride (98-107) mmol/L Carbon Dioxide (22-29) mmol/L Anion Gap (7-16) BUN 4 L (8-23) mg/dL Creatinine 0.4 L (0.5-0.9) mg/dL Random Glucose (74-109) mg/dL Lactic Acid (0.5-2.2) mmol/L Calcium 8.0 L 8.1 L (8.8-10.2) mg/dL Ur Leukocyte Esterase (NEGATIVE) Condition at Discharge: (2) Stable VTE Discharge VTE Reason For No Overlap Therapy: Not Indicated Discharge Medications - Discharge Medications Prescriptions: Mirtazapine [Remeron] 15 mg PO QHS #30 tablet Acetaminophen [Tylenol 325Mg] 650 mg PO Q4H PRN #20 tablet PRN Reason: Pain - Mild(1-4)/Fever Levofloxacin [Levaquin Tab] 500 mg PO Q48H #3 tab Home Medications: Ambulatory Orders Digoxin [Lanoxin] 125 mcg PO DAILY 11/17/13 [Last Taken 02/01/17] Levothyroxine Sodium [Synthroid] 25 mcg PO DAILYTHY 11/17/13 [Last Taken ] Lisinopril [Prinivil] 20 mg PO BID 11/17/13 [Last Taken 02/01/17] Memantine HCl [Namenda Xr] 28 mg PO DAILY 11/17/13 [Last Taken 02/01/17] Aspirin [Aspir-Low] 81 mg PO DAILY 08/28/16 [Last Taken 02/01/17] Amlodipine Besylate [Norvasc] 5 mg PO BID 02/01/17 [Last Taken 02/01/17] Meloxicam 15 mg PO DAILY 02/01/17 [Last Taken 02/01/17] Rivaroxaban [Xarelto] 20 mg PO DAILY 02/01/17 [Last Taken 02/01/17] Diltiazem HCl [Diltiazem 24Hr ER] 180 mg PO DAILY 10/07/17 [Last Taken Unknown] Acetaminophen [Tylenol 325Mg] 650 mg PO Q4H PRN #20 tablet 10/11/17 [Last Taken Unknown] Levofloxacin [Levaquin Tab] 500 mg PO Q48H #3 tab 10/11/17 [Last Taken Unknown] Mirtazapine [Remeron] 15 mg PO QHS #30 tablet 10/11/17 [Last Taken Unknown] Discharge Plan - Discharge Instructions Activity at Discharge: Resume Usual Activities As Tolerated Diet at Discharge: Regular Diet Additional Instructions: Please follow up with your PCP Dr. Greene within 1 week of discharge. You are being discharged on 3 medications: (1) Remeron 15mg at night time to help with your appetite. (2) Tylenol 650 mg every 4 hours as needed for your pain. (3) Levaquin 500mg orally, daily (antibiotic) for pneumonia. This medication is to be taken every other day. Your next dose is for 10/13, 10/15, 10/17. Home healthcare has been consulted for follow up at home for assistance with bathing etc, in addition to PT/OT. A Aguilar catheter is to be placed and changed every 2 weeks. Return to ED if there are any acute concerns. Quality Measures - Quality Measures Quality Measures: Atrial Fibrillation & Atrial Flutter: Chronic Anticoagulation Therapy, Advance Directives, Documentation of Current Medications in Medical Record, Elder Maltreatment Screen and Follow-Up Plan, Heart Failure, Screening for High Blood Pressure and F/U Documented - Current Medications Quality Measure: Measure #130: Documentation of Current Medications Documentation of Current Medications: <Current Medications Documented/Reviewed> [G5078] - Blood Pressure Screening Quality Measure: Screening for High Blood Pressure and Follow-Up Documented Does Patient Have Any of the Following: Active Dx of HTN Blood Pressure Classification: Pre-Hypertensive BP Reading Systolic Measurement: 132 Diastolic Measurement: 65 Screening for High Blood Pressure: Patient Exclusion, Hx of HTN [G9744] - Atrial Fibrillation and Atrial Flutter Quality Measure: Atrial Fibrillation & Atrial Flutter: Chronic Anticoagulation Therapy Does Patient Have Any of the Following: No CHADS2 Risk Stratification: Prior Stroke/TIA or Systemic Embolism, Age 75 or Greater, Hypertension, Diabetes Mellitus, Heart Failure or Impaired LVSF Risk Stratification Summary: One or more high risk factors OR more than one moderate risk factor exists. [G8972] Anticoagulation Therapy: <Oral anticoagulant Prescribed> [G8967] - Heart Failure (TEX/ARB Therapy) Quality Measure: Heart Failure Left Ventricular Systolic Function: Unknown TEX Inhibitor or ARB Therapy for LVSD: Not Eligible - Heart Failure (Beta-saundra Therapy) Quality Measure: Heart Failure Left Ventricular Systolic Function: Unknown Beta-Saundra Therapy for LVEF < 40%: Not Eligible - Advance Directives Quality Measure: Measure #47: Care Plan Advance Directives Established: Yes Advance Directives Information Provided To Patient: Yes Advance Directives on File: No Living Will: No Power of Template Clerk: No Advance Care Planning: <Care Plan/Decision Maker Documented; Discussed & Documented> [2807H] - Elder Abuse Suspicion Index Screening: Elder Abuse Suspicion Index Screening Rely on people for bathing, dressing, shopping, banking, etc: Yes Prevented from getting food, clothes, medication, etc: No Made to feel shamed or threatened by someone: No Feel afraid, touched in ways not wanted or hurt physically: No Poor eye contact, withdrawn, malnourished, cuts or bruises: No Screening Result: Negative result EASI Reference Information: Shira BAPTISTE, Yas Stokes, Sanju Wang, Kade Coles.Development and validation of a tool to assist physicians identification of elder abuse: The Elder Abuse Suspicion Index (EASI ). Journal of Elder Abuse and Neglect, 2008; 20 (3): 276-300. - Elder Maltreatment Screen Quality Measures: Elder Maltreatment Screen and Follow-Up Plan Elder Maltreatment Screen: <Negative, No Follow-Up Plan Required> [G8124]
--- NOTE | 2017-10-11 11:22 | Physical Therapy Tx Note ---
Physical Therapy Tx Note - Treatment Note Physical Therapy Tx Note: Detail (The patient refused PT/OT treatment, stating she was too cold and did not want to get up. The patient was encouraged to get out of bed but continued to refuse. The patient was given coffee. The patient is to go home today and will be receiving Home PT.) Physical Therapy Problem List: Detail (1) Cognitive Status, impulsitivity and poor safety judgement. 2) Decreased ability to complete prolonged physical activity. 3) Impaired balance.) Physical Therapy Goals: 1) Assess balance using Tinetti Assessment Tool. 2) The patient will tolerate 15 to 20 minutes of physical activity. 3) The patient will ambulate household distances with supervision for safety. Physical Therapy Plan: PT 1 time a day M-F for balance and LE strengthening exercises, gait and transfer training.
[2017-10-11] MEDS: RIVAROXABAN 20 MG TABLET PO SCH (11:44)
[2017-10-11] MEDS: MEMANTINE HCL 10 MG TABLET PO SCH (11:44)
[2017-10-11] MEDS: ASPIRIN 81 MG TABEC PO SCH (11:44)
[2017-10-11] MEDS: LISINOPRIL 20 MG TABLET PO SCH (11:44)
[2017-10-11] MEDS: AMLODIPINE BESYLATE 5MG TAB PO SCH (11:44)
[2017-10-11] MEDS: DIGOXIN 125 MCG TABLET PO SCH (11:44)
[2017-10-11] MEDS: MELOXICAM 7.5 MG TABLET PO SCH (11:44)
[2017-10-11] MEDS: DILTIAZEM 180MG CR CAPSULE PO SCH (11:46)
[2017-10-11] MEDS: ACETAMINOPHEN 325 MG TAB PO PRN (11:56)
--- NOTE | 2017-10-11 13:01 | Occupational Therapy Tx Note ---
Occupational Therapy Tx Note - Treatment Note Occupational Therapy Treatment Note: Detail (Attempted OT this am, pt refusing as she is tired and cold. She reports she is going home today. Will continue to monitor.) Occupational Therapy Problem List: Detail (1. Decreased orientation. 2. Decreased Ind with self care tasks. 3. Decreased endurance needed for safe and Ind self cares.) Occupational Therapy Goals: 1. Pt will be oriented to location. 2. Pt will be Ind with grooming/hygiene. Occupational Therapy Plan: OT 2-4 days per week to address cognition, self cares , safety and overall endurance to allow safe return home with son.
[2017-10-11] MEDS ORDERED: ONDANSETRON 4 MG ODT TABLET SL ONE (15:47)
[2017-10-11] MEDS: LEVOFLOXACIN 500MG IVPB 500 MG/100 ML BAG IVPB SCH (16:00)
== END 2017-10-11 16:06 | disposition home health service (06) | DRG 871 ==
LOC: ER 12:20 → MEDSURG 16:24
PROVIDERS: ADMIT Internal Medicine; ATTEND Internal Medicine
DX: A41.9 Sepsis, unspecified organism (principal); J18.1 Lobar pneumonia, unspecified organism; N30.00 Acute cystitis without hematuria; N39.0 Urinary tract infection, site not specified; N13.30 Unspecified hydronephrosis; S22.49XA Multiple fractures of ribs, unspecified side, initial encounter for closed fracture; R33.9 Retention of urine, unspecified; E87.6 Hypokalemia; I48.91 Unspecified atrial fibrillation; J44.9 Chronic obstructive pulmonary disease, unspecified; Z79.01 Long term (current) use of anticoagulants; R91.1 Solitary pulmonary nodule; K57.92 Diverticulitis of intestine, part unspecified, without perforation or abscess without bleeding; I10 Essential (primary) hypertension; F03.90 Unspecified dementia, unspecified severity, without behavioral disturbance, psychotic disturbance, mood disturbance, and anxiety; K57.90 Diverticulosis of intestine, part unspecified, without perforation or abscess without bleeding; E16.2 Hypoglycemia, unspecified; D64.9 Anemia, unspecified; Z87.891 Personal history of nicotine dependence
CPT/HCPCS: 71046; 74176; 80048; 80053; 80162; 81001; 83605; 84132; 85025; 85027; 87493; 94640; 94760; 96365; 99223; 99233; 99239; 99285; J1956; J2405; J7613

== ENCOUNTER 2017-12-12 15:08 | Inpatient (IN) | payer MEDICARE, BC, OTHER, MEDICAID ==
[2017-12-12] MEDS ORDERED: SODIUM CHLORIDE 0.9% 500 ML IV ONE (16:00)
[2017-12-12 16:13] LABS: URINE APPEARANCE CLEAR; URINE BILIRUBIN NEGATIVE (NEGATIVE); URINE BLOOD SMALL (NEGATIVE); URINE COLOR YELLOW; URINE GLUCOSE (UA) NEGATIVE (NEGATIVE); URINE KETONE NEGATIVE (NEGATIVE); URINE LEUKOCYTE ESTERASE SMALL (NEGATIVE); URINE NITRITE NEGATIVE (NEGATIVE); URINE PROTEIN TRACE (NEGATIVE); URINE UROBILINOGEN 0.2 E.U./dL (0.20 - 1.00)
[2017-12-12 16:16] LABS: HEMATOCRIT 37.5 % (35.0-47.0); HEMOGLOBIN 11.3 gm/dl (11.6-16.0); MEAN CELL VOLUME 80.1 fl (81-97); MEAN CORPUSCULAR HEMOGLOBIN 24.1 pg (27-33); MEAN CORPUSCULAR HGB CONC 30.1 g/dl (32-36); MEAN PLATELET VOLUME 9.2 fl (7.4-10.4); PLATELET COUNT 302 K/uL (130-400); RED BLOOD COUNT 4.68 M/uL (3.80-5.40); RED CELL DISTRIBUTION WIDTH 16.1 % (11.5-14.5)
[2017-12-12 16:28] LABS: URINE BACTERIA FEW; URINE EPITHELIAL CELLS 0 - 2 (FEW)
[2017-12-12 16:28] LABS: BLOOD UREA NITROGEN 12 mg/dL (8-23); CREATININE 0.5 mg/dL (0.5-0.9); EST GLOMERULAR FILTRATION RATE > 60 mL/min
[2017-12-12 16:29] LABS: TOTAL PROTEIN 7.3 g/dL (6.6-8.7)
[2017-12-12 16:31] LABS: GLUCOSE,RANDOM 108 mg/dL (74-109)
[2017-12-12 16:34] LABS: ALB/GLOB RATIO 1.5 (1.1-1.8); ALBUMIN 4.4 g/dL (4.0-5.0); ALKALINE PHOSPHATASE 57 U/L (35-104); ALT/SGPT 15 U/L (<33); AST/SGOT 14 U/L (10.0-35.0); CREATINE PHOSPHOKINASE 26 U/L (26-192)
[2017-12-12 16:35] LABS: PLATELET ESTIMATE NORMAL (NORMAL)
[2017-12-12 16:47] LABS: LACTIC ACID 1.3 mmol/L (0.5-2.2)
[2017-12-12] MEDS ORDERED: SOD CHLOR 0.9% WITH KCL 40MEQ 40 MEQ/1,000 ML IV.SOLN IV ONE (16:57)
[2017-12-12] MEDS ORDERED: LEVOFLOXACIN/D5W 750 MG/150 ML BAG IVPB ONE (17:46)
--- NOTE | 2017-12-12 17:47 | Emergency Department Record ---
History of Present Illness - General Chief complaint: Weakness Stated complaint: TEMP/HPB RT LUNG PAIN Time Seen by Provider: 12/12/17 15:54 Source: Patient, Family Mode of Arrival: Wheelchair Limitations: No limitations - History of Present Illness Initial comments: pt was sent in by visiting nurse for increasing weakness and hypoxia. she also ran a low grade fever MD Complaint: Generalized weakness Onset/Timin -: Days(s) Location: Generalized Severity: Mild Severity scale (1-10): 7 Quality: Aching, Dull Consistency: Constant, Getting worse Improves with: None Worsens with: None Associated Symptoms: Chest pain, Fever/chills, Loss of appetite - Marcie Coma Scale Eye Response: (4) Open spontaneously Motor Response: (5) Localizes to pain Verbal Response: (5) Oriented [place] Total: 14 - Related Data Previous Rx's Medication Instructions Recorded Acetaminophen [Tylenol 325Mg] 650 mg PO Q4H PRN #20 tablet 10/11/17 Mirtazapine [Remeron] 15 mg PO QHS #30 tablet 10/11/17 Potassium Chloride [Klor-Con] 20 meq PO DAILY #14 tab.[email or web address].sr 10/11/17 Allergies Allergy/AdvReac Type Severity Reaction Status Date / Time erythromycin base AdvReac DIARRHEA Verified 12/12/17 15:21 [Erythromycin Base] morphine AdvReac ALTERED Verified 12/12/17 15:21 MENTAL STATUS Travel Screening - Travel/Exposure Within Last 30 Days Have you traveled within the last 30 days?: No - Travel/Exposure Within Last Year Have you traveled outside the [place] in the last year?: No - Additonal Travel Details Have you been exposed to anyone with a communicable illness?: No - Travel Symptoms Symptom Screening: None Review of Systems Reviewed: No additional complaints except as noted below Constitutional: Reports: As per HPI. Denies: Chills, Fever, Malaise, Night sweats, Weakness, Weight change Eyes: Reports: As per HPI. Denies: Eye discharge, Eye pain, Photophobia, Vision change ENT: Reports: As per HPI. Denies: Congestion, Dental pain, Ear pain, Epistaxis , Hearing loss, Throat pain Respiratory: Reports: As per HPI. Denies: Cough, Dyspnea, Hemoptysis, Stridor, Wheezes Cardiovascular: Reports: As per HPI. Denies: Arrhythmia, Chest pain, Dyspnea on exertion, Edema, Murmurs, Orthopnea, Palpitations, Paroxysmal nocturnal dyspnea, Rheumatic Fever, Syncope Endocrine: Reports: As per HPI. Denies: Fatigue, Heat or cold intolerance, Polydipsia, Polyuria Gastrointestinal: Reports: As per HPI. Denies: Abdominal pain, Constipation, Diarrhea, Hematemesis, Hematochezia, Melena, Nausea, Vomiting Genitourinary: Reports: As per HPI. Denies: Abnormal menses, Discharge, Dyspareunia, Dysuria, Frequency, Hematuria, Incontinence, Retention, Urgency Musculoskeletal: Reports: As per HPI. Denies: Arthralgia, Back pain, Gout, Joint swelling, Myalgia, Neck pain Skin: Reports: As per HPI. Denies: Bruising, Change in color, Change in hair/ nails, Lesions, Pruritus, Rash Neurological: Reports: As per HPI. Denies: Abnormal gait, Confusion, Headache, Numbness, Paresthesias, Seizure, Tingling, Tremors, Vertigo, Weakness Psychiatric: Reports: As per HPI. Denies: Anxiety, Auditory hallucinations, Depression, Homicidal thoughts, Suicidal thoughts, Visual hallucinations Hematological/Lymphatic: Reports: As per HPI. Denies: Anemia, Blood Clots, Easy bleeding, Easy bruising, Swollen glands Past Medical History - SOCIAL HISTORY Smoking Status: Former smoker Alcohol Use: None Drug Use: None - RESPIRATORY Hx Respiratory Disorders: Yes Hx COPD: Yes Hx Pneumonia: Yes (admitted 11/09/13) - CARDIOVASCULAR Hx Cardio Disorders: Yes Hx Chest Pain: Yes Hx Edema: Yes Hx Hypertension: Yes Hx Irregular Heartbeat: Yes (a-fib) Comment:: leaky valve - NEURO Hx Neuro Disorders: Yes Hx Dementia: Yes - GI Hx GI Disorders: Yes Hx Diverticulitis: Yes - Hx Genitourinary Disorders: Yes Hx UTI: Yes - ENDOCRINE Hx Endocrine Disorders: Yes Hx Diabetes: Yes (hypoglycemia) Hx Thyroid Disease: Yes - MUSCULOSKELETAL Hx Musculoskeletal Disorders: No - PSYCH Hx Psych Problems: No Hx Anxiety: Yes Hx Depression: Yes - HEMATOLOGY/ONCOLOGY Hx Hematology/Oncology Disorders: Yes Hx Anemia: Yes Family Medical History Any Significant Family History?: Yes Hx Dementia: Brother/Sister *Dementia Comment: Brother Hx HTN: Brother/Sister Physical Exam - General General Appearance: Alert, Oriented x3, Cooperative, Mild distress - Head Head exam: Normal inspection - Eye Eye exam: Normal appearance, PERRL, EOMI Pupils: Normal accommodation - ENT ENT exam: Normal exam, Mucous membranes dry, Normal external ear exam, Normal orophraynx, TM's normal bilaterally Ear exam: Normal external inspection. negative: External canal tenderness Nasal Exam: Normal inspection. negative: Discharge, Sinus tenderness Mouth exam: Normal external inspection, Tongue normal Teeth exam: Normal inspection. negative: Dental caries Throat exam: Normal inspection. negative: Tonsillar erythema, Tonsillar exudate - Neck Neck exam: Normal inspection, Full ROM. negative: Tenderness - Respiratory Respiratory exam: Normal lung sounds bilaterally. negative: Respiratory distress - Cardiovascular Cardiovascular Exam: Normal rhythm, Normal heart sounds, Tachycardia - GI/Abdominal GI/Abdominal exam: Soft, Normal bowel sounds. negative: Tenderness - Rectal Rectal exam: Deferred - exam: Deferred - Extremities Extremities exam: Normal inspection, Full ROM, Normal capillary refill. negative: Tenderness - Back Back exam: Reports: Normal inspection, Full ROM. Denies: Muscle spasm, Rash noted, Tenderness - Neurological Neurological exam: Alert, CN II-XII intact, Normal gait, Oriented X3 - Psychiatric Psychiatric exam: Normal affect, Normal mood - Skin Skin exam: Dry, Intact, Normal color, Warm Course Vital Signs 12/12/17 12/12/17 12/12/17 15:12 16:47 17:08 Temperature 98.3 F Pulse Rate 103 H Pulse Rate [ 103 H 98 H Pulse Ox Probe] Respiratory 18 24 22 Rate Blood Pressure 164/75 Blood Pressure 134/69 133/61 [Right Arm] Pulse Ox 86 L 92 L 92 L Medical Decision Making - Lab Data Result diagrams: 12/12/17 15:26 12/12/17 15:26 Lab Results 12/12/17 12/12/17 12/12/17 Range/Units 15:00 15:26 15:26 WBC 23.0 H* (4.2-12.2) K/uL RBC 4.68 (3.80-5.40) M/uL Hgb 11.3 L (11.6-16.0) gm/dl Hct 37.5 (35.0-47.0) % MCV 80.1 L (81-97) fl MCH 24.1 L (27-33) pg MCHC 30.1 L (32-36) g/dl RDW 16.1 H (11.5-14.5) % Plt Count 302 (130-400) K/uL MPV 9.2 (7.4-10.4) fl Neutrophils % 75.0 (47-80) % Band Neutrophils % 5.0 (0-5) % Eosinophils % Not Reportable Basophils % Not Reportable Lymphocytes 17.0 (16-45) % Monocytes 3.0 (0-9) % Platelet Estimate Normal (NORMAL) RBC Morphology Normal Sodium 133 L (136-145) mmol/L Potassium 2.9 L* (3.4-4.5) mmol/L Chloride 90 L (98-107) mmol/L Carbon Dioxide 25.0 (22-29) mmol/L Anion Gap 18.0 H (7-16) BUN 12 (8-23) mg/dL Creatinine 0.5 (0.5-0.9) mg/dL Estimated GFR > 60 mL/min Random Glucose 108 (74-109) mg/dL Lactic Acid 1.3 (0.5-2.2) mmol/L Calcium 9.5 (8.8-10.2) mg/dL Total Bilirubin 1.00 (0.2-1.0) mg/dL AST 14 (10.0-35.0) U/L ALT 15 (<33) U/L Alkaline Phosphatase 57 (35-104) U/L Creatine Kinase 26 (26-192) U/L Total Protein 7.3 (6.6-8.7) g/dL Albumin 4.4 (4.0-5.0) g/dL Globulin 2.9 (1.4-4.8) gm/dL Albumin/Globulin Ratio 1.5 (1.1-1.8) Urine Color Yellow Urine Appearance Clear Urine pH 7.5 (5.0-8.0) Ur Specific [place] 1.015 (1.002-1.030) Urine Protein Trace H (NEGATIVE) Urine Glucose (UA) Negative (NEGATIVE) Urine Ketones Negative (NEGATIVE) Urine Blood Small H (NEGATIVE) Urine Nitrite Negative (NEGATIVE) Urine Bilirubin Negative (NEGATIVE) Urine Urobilinogen 0.2 (0.20 - 1.00) E.U./dL Ur Leukocyte Esterase Small H (NEGATIVE) Urine RBC 3 - 6 (NONE SEEN) Urine WBC 10 - 15 (0-2/hpf) Ur Epithelial Cells 0 - 2 (FEW) Urine Bacteria Few Disposition Disposition: Admit Clinical Impression: Hypokalemia Pneumonia Qualifiers: Pneumonia type: due to unspecified organism Laterality: bilateral Lung location : lower lobe of lung Qualified Code(s): J18.1 - Lobar pneumonia, unspecified organism UTI (urinary tract infection) Qualifiers: Urinary tract infection type: acute cystitis Hematuria presence: without hematuria Qualified Code(s): N30.00 - Acute cystitis without hematuria Decision to Admit: Admit from ER Decision to Admit Date: 12/12/17 Decision to Admit Time: 17:51 Forms: Patient Portal Access Quality - Quality Measures Quality Measures: N/A - Blood Pressure Screening Does Patient Have Any of the Following: Active Dx of HTN Blood Pressure Classification: Hypertensive Reading Systolic Measurement: 164 Diastolic Measurement: 75 Screening for High Blood Pressure: Patient Exclusion, Hx of HTN [G9744]
[2017-12-12] MEDS ORDERED: POTASSIUM CHLORIDE 20 MEQ TABLET PO ONE (19:24)
[2017-12-12] MEDS ORDERED: ACETAMINOPHEN 325 MG TAB PO PRN (19:34)
[2017-12-12] MEDS: LISINOPRIL 20 MG TABLET PO SCH (21:20)
[2017-12-12] MEDS: MIRTAZAPINE 15 MG TABLET PO SCH (21:20)
[2017-12-12] MEDS: AMLODIPINE BESYLATE 5MG TAB PO SCH (21:20)
[2017-12-13] MEDS: LEVOTHYROXINE SODIUM 25 MCG TABLET PO SCH (06:49)
[2017-12-13 07:19] LABS: BASO % 0.1 % (0-6); EOS % 0.1 % (0-6); HEMATOCRIT 32.4 % (35.0-47.0); HEMOGLOBIN 9.5 gm/dl (11.6-16.0); LYMPH % 17.1 % (16-45); MEAN CELL VOLUME 81.4 fl (81-97); MEAN CORPUSCULAR HGB CONC 29.3 g/dl (32-36); MEAN PLATELET VOLUME 9.1 fl (7.4-10.4); MONO % 5.7 % (0-9); PLATELET COUNT 249 K/uL (130-400); RED BLOOD COUNT 3.98 M/uL (3.80-5.40); RED CELL DISTRIBUTION WIDTH 15.7 % (11.5-14.5); WHITE BLOOD COUNT W/O DIFF 14.8 K/uL (4.2-12.2)
[2017-12-13 07:35] LABS: BLOOD UREA NITROGEN 10 mg/dL (8-23); CREATININE 0.6 mg/dL (0.5-0.9); EST GLOMERULAR FILTRATION RATE > 60 mL/min; GLUCOSE,RANDOM 102 mg/dL (74-109)
[2017-12-13 07:49] LABS: MEAN CORPUSCULAR HEMOGLOBIN 23.8 pg (27-33)
--- NOTE | 2017-12-13 08:31 | RADIOLOGY REPORT ---
EXAM: CHEST, TWO VIEWS HISTORY: HYPOXIA. FOLLOW-UP PNEUMONIA. TECHNIQUE: AP and lateral upright views of the chest were obtained. Comparison: 10/07/17. FINDINGS: The heart is normal in size. There is mild ectasia of the thoracic aorta. The mediastinum and pulmonary vasculature are otherwise normal. The patient is rotated to the left. There are patchy infiltrates within the right mid and lower lung jain which are new from the prior study. These appear located within the right lower lobe and are consistent with pneumonia. There is minor atelectasis or infiltrate at the left lung base. The lungs are hyperinflated consistent with underlying COPD. There is stable biapical pleural thickening. Mild dextroconvex scoliosis is present within the thoracic spine. Minor compression deformities within the thoracic region appear stable. There are no acute osseous abnormalities. IMPRESSION: 1. NEW PATCHY INFILTRATES WITHIN THE RIGHT LOWER LOBE CONSISTENT WITH PNEUMONIA. FOLLOW-UP IS RECOMMENDED TO CONFIRM CLEARING. 2. MILD ATELECTASIS OR INFILTRATE AT THE LEFT LUNG BASE. 3. UNDERLYING COPD. JOB NUMBER: [id number] [facility]
--- NOTE | 2017-12-13 08:53 | History & Physical ---
History of Present Illness - Date of Service Date of Service for History & Physical: 12/13/17 - History of Present Illness Admitting Diagnosis: bilateral pneumonia, hypokalemia, uti, weakness History of Present Illness: Mrs. Browne is a 87 y/o female with advanced demenatia, chronic atrial fibrillation, hypertension and hypothyroid with presentation of increasing shortness of breath and hypoxia as reported by home visiting nurse. The details are sparse on the events prior to admission and there is no EMS run sheet in the chart. But on her previous admission 10/11/17 the patient was diagnosed with a pneumonia of the left lower lung lobe, urinary tract infection and had multiple rib fractures due to frequent falls. The patient lives at home with her son her says that he is having a difficult time caring for her due to advanced dementia. He says that she has had a cough but no shortness of breath. On presentation to [facility] the patient is documented has being hypoxic with a saturation of 86% on room air and tachycardic with a heart rate of 103. Her EKG showed sinus rhythm with a prolonged Qtc and chest xray showed new patchy infiltrates within the right lower lobe. The patient was started on Levaquin 750mg Q24H and admitted for further observation. The patient's son has noted that he is in the process of transitioning the patient to hospice care. She is currently being seen by [facility] for home nursing services and the process for hospice has been initiated. Vitals on admission: BP: 164/75 HR: 103 RR: 18 Sats: 86% T 98.3 Travel Screening - Travel/Exposure Within Last 30 Days Have you traveled within the last 30 days?: No - Travel/Exposure Within Last Year Have you traveled outside the [place] in the last year?: No - Additonal Travel Details Have you been exposed to anyone with a communicable illness?: No - Travel Symptoms Symptom Screening: None Review of Systems Constitutional: Reports: As per HPI. Denies: Chills, Fever, Malaise, Night sweats, Weakness, Weight change Eyes: Reports: As per HPI. Denies: Eye discharge, Eye pain, Photophobia, Vision change ENT: Reports: As per HPI. Denies: Congestion, Dental pain, Ear pain, Epistaxis , Hearing loss, Throat pain Respiratory: Reports: As per HPI. Denies: Cough, Dyspnea, Hemoptysis, Stridor, Wheezes Cardiovascular: Reports: As per HPI. Denies: Arrhythmia, Chest pain, Dyspnea on exertion, Edema, Murmurs, Orthopnea, Palpitations, Paroxysmal nocturnal dyspnea, Rheumatic Fever, Syncope Endocrine: Reports: As per HPI. Denies: Fatigue, Heat or cold intolerance, Polydipsia, Polyuria Gastrointestinal: Reports: As per HPI. Denies: Abdominal pain, Constipation, Diarrhea, Hematemesis, Hematochezia, Melena, Nausea, Vomiting Genitourinary: Reports: As per HPI. Denies: Abnormal menses, Discharge, Dyspareunia, Dysuria, Frequency, Hematuria, Incontinence, Retention, Urgency Musculoskeletal: Reports: As per HPI. Denies: Arthralgia, Back pain, Gout, Joint swelling, Myalgia, Neck pain Skin: Reports: As per HPI. Denies: Bruising, Change in color, Change in hair/ nails, Lesions, Pruritus, Rash Neurological: Reports: As per HPI. Denies: Abnormal gait, Confusion, Headache, Numbness, Paresthesias, Seizure, Tingling, Tremors, Vertigo, Weakness Psychiatric: Reports: As per HPI. Denies: Anxiety, Auditory hallucinations, Depression, Homicidal thoughts, Suicidal thoughts, Visual hallucinations Hematological/Lymphatic: Reports: As per HPI. Denies: Anemia, Blood Clots, Easy bleeding, Easy bruising, Swollen glands Past Medical History - SOCIAL HISTORY Smoking Status: Former smoker Alcohol Use: None Drug Use: None - RESPIRATORY Hx Respiratory Disorders: Yes Hx COPD: Yes Hx Pneumonia: Yes (admitted 11/09/13) - CARDIOVASCULAR Hx Cardio Disorders: Yes Hx Chest Pain: Yes Hx Edema: Yes Hx Hypertension: Yes Hx Irregular Heartbeat: Yes (a-fib) Comment:: leaky valve - NEURO Hx Neuro Disorders: Yes Hx Dementia: Yes - GI Hx GI Disorders: Yes Hx Diverticulitis: Yes - Hx Genitourinary Disorders: Yes Hx UTI: Yes - ENDOCRINE Hx Endocrine Disorders: Yes Hx Diabetes: Yes (hypoglycemia) Hx Thyroid Disease: Yes - MUSCULOSKELETAL Hx Musculoskeletal Disorders: No - PSYCH Hx Psych Problems: No Hx Anxiety: Yes Hx Depression: Yes - HEMATOLOGY/ONCOLOGY Hx Hematology/Oncology Disorders: Yes Hx Anemia: Yes Family Medical History Any Significant Family History?: Yes Hx Dementia: Brother/Sister *Dementia Comment: Brother Hx HTN: Brother/Sister H&P Meds/Allergies - Allergies Allergies: Allergies Allergy/AdvReac Type Severity Reaction Status Date / Time erythromycin base AdvReac DIARRHEA Verified 12/12/17 15:21 [Erythromycin Base] morphine AdvReac ALTERED Verified 12/12/17 15:21 MENTAL STATUS - Home Medications Home Medications Medication Instructions Recorded Confirmed Last Taken Lorazepam [Ativan] 0.5 mg PO QHS 12/12/17 12/12/17 Unknown Mirtazapine [Remeron] 30 mg PO QHS 12/12/17 12/12/17 1 Day Ago ~12/11/17 Prednisone [Prednisone 10Mg] 10 mg PO DAILY 12/12/17 12/12/17 12/11/17 10 Previous Rx's Medication Instructions Recorded Acetaminophen [Tylenol 325Mg] 650 mg PO Q4H PRN #20 tablet 10/11/17 Potassium Chloride [Klor-Con] 20 meq PO DAILY #14 tab.[id number].sr 10/11/17 - Active Medications Active Medications: Current Medications Acetaminophen (Tylenol 325mg) 650 mg PO Q6H PRN PRN Reason: PAIN - MILD(1-4)/FEVER Amlodipine Besylate (Norvasc) 5 mg PO BID [facility] Last Admin: 12/12/17 21:20 Dose: 5 mg Aspirin (Ecotrin (Ec)) 81 mg PO DAILY [facility] Digoxin (Lanoxin) 125 mcg PO DAILY [facility] Diltiazem HCl (Cardizem Cd) 180 mg PO DAILY [facility] Levofloxacin/Dextrose (Levaquin 750mg Ivpb) 750 mg in 150 mls @ 125 mls/hr IVPB Q24H [facility] Stop: 12/18/17 18:01 Levothyroxine Sodium (Synthroid) 25 mcg PO DAILYTHY [facility] Last Admin: 12/13/17 06:49 Dose: 25 mcg Lisinopril (Zestril) 20 mg PO BID [facility] Last Admin: 12/12/17 21:20 Dose: 20 mg Meloxicam (Mobic) 15 mg PO DAILY [facility] Memantine (Namenda) 10 mg PO BID [facility] Mirtazapine (Remeron) 15 mg PO QHS [facility] Last Admin: 12/12/17 21:20 Dose: 15 mg Potassium Chloride (Klor-Con) 20 meq PO DAILY [facility] Rivaroxaban (Xarelto) 20 mg PO DAILY [facility] Physical Exam - Vital Signs Vital Signs: Vital Signs - Last 24 Hrs Temp Pulse Pulse Resp BP BP Pulse Ox 12/13/17 06:00 98.7 F 90 20 149/70 97 12/12/17 22:00 99.5 F 96 H 20 138/62 93 L 12/12/17 21:00 20 12/12/17 19:14 98.9 F 98 H 20 136/69 93 L 12/12/17 18:45 99.4 F 99 H 20 128/59 94 L 12/12/17 17:48 99 H 21 140/89 93 L 12/12/17 17:08 98 H 22 133/61 92 L 12/12/17 16:47 103 H 24 134/69 92 L 12/12/17 15:12 98.3 F 103 H 18 164/75 86 L - General General Appearance: Alert, Oriented x3, Cooperative, Mild distress Limitations: No limitations - Head Head exam: Normal inspection - Eye Eye exam: Normal appearance, PERRL, EOMI Pupils: Normal accommodation - ENT ENT exam: Normal exam, Mucous membranes dry, Normal external ear exam, Normal orophraynx, TM's normal bilaterally Ear exam: Normal external inspection. negative: External canal tenderness Nasal Exam: Normal inspection. negative: Discharge, Sinus tenderness Mouth exam: Normal external inspection, Tongue normal Teeth exam: Normal inspection. negative: Dental caries Throat exam: Normal inspection. negative: Tonsillar erythema, Tonsillar exudate - Neck Neck exam: Normal inspection, Full ROM. negative: Tenderness - Respiratory Respiratory exam: Decreased breath sounds (diminished right lung base). negative: Respiratory distress - Cardiovascular Cardiovascular Exam: Normal rhythm, Normal heart sounds, Tachycardia Peripheral Pulses: 2+: Radial (R), Radial (L), Dorsalis Pedis (R), Dorsalis Pedis (L) - GI/Abdominal GI/Abdominal exam: Soft, Normal bowel sounds. negative: Tenderness - Rectal Rectal exam: Deferred - exam: Deferred - Extremities Extremities exam: Normal inspection, Full ROM, Normal capillary refill. negative: Tenderness - Back Back exam: Reports: Normal inspection, Full ROM. Denies: Muscle spasm, Rash noted, Tenderness - Neurological Neurological exam: Alert, CN II-XII intact, Normal gait, Oriented X3 - Psychiatric Psychiatric exam: Normal affect, Normal mood - Skin Skin exam: Dry, Intact, Normal color, Warm Results - Labs Result Diagrams: 12/13/17 07:00 12/13/17 07:00 Labs Last 24 Hours: Laboratory Results - last 24 hr 12/12/17 12/12/17 12/12/17 15:00 15:26 15:26 WBC 23.0 H* RBC 4.68 Hgb 11.3 L Hct 37.5 MCV 80.1 L MCH 24.1 L MCHC 30.1 L RDW 16.1 H Plt Count 302 MPV 9.2 Gran % Neutrophils % 75.0 Band Neutrophils % 5.0 Lymphocytes % Monocytes % Eosinophils % Not Reportable Basophils % Not Reportable Lymphocytes 17.0 Monocytes 3.0 Platelet Estimate Normal RBC Morphology Normal Sodium 133 L Potassium 2.9 L* Chloride 90 L Carbon Dioxide 25.0 Anion Gap 18.0 H BUN 12 Creatinine 0.5 Estimated GFR > 60 Random Glucose 108 Lactic Acid 1.3 Calcium 9.5 Total Bilirubin 1.00 AST 14 ALT 15 Alkaline Phosphatase 57 Creatine Kinase 26 Total Protein 7.3 Albumin 4.4 Globulin 2.9 Albumin/Globulin Ratio 1.5 Urine Color Yellow Urine Appearance Clear Urine pH 7.5 Ur Specific [place] 1.015 Urine Protein Trace H Urine Glucose (UA) Negative Urine Ketones Negative Urine Blood Small H Urine Nitrite Negative Urine Bilirubin Negative Urine Urobilinogen 0.2 Ur Leukocyte Esterase Small H Urine RBC 3 - 6 Urine WBC 10 - 15 Ur Epithelial Cells 0 - 2 Urine Bacteria Few Digoxin 12/12/17 12/13/17 12/13/17 15:26 07:00 07:00 WBC 14.8 H RBC 3.98 Hgb 9.5 L Hct 32.4 L MCV 81.4 MCH 23.8 L MCHC 29.3 L RDW 15.7 H Plt Count 249 MPV 9.1 Gran % 77.0 Neutrophils % Band Neutrophils % Lymphocytes % 17.1 Monocytes % 5.7 Eosinophils % 0.1 Basophils % 0.1 Lymphocytes Monocytes Platelet Estimate RBC Morphology Sodium 134 L Potassium 4.4 Chloride 99 Carbon Dioxide 23.0 Anion Gap 12.0 BUN 10 Creatinine 0.6 Estimated GFR > 60 Random Glucose 102 Lactic Acid Calcium 9.0 Total Bilirubin AST ALT Alkaline Phosphatase Creatine Kinase Total Protein Albumin Globulin Albumin/Globulin Ratio Urine Color Urine Appearance Urine pH Ur Specific [place] Urine Protein Urine Glucose (UA) Urine Ketones Urine Blood Urine Nitrite Urine Bilirubin Urine Urobilinogen Ur Leukocyte Esterase Urine RBC Urine WBC Ur Epithelial Cells Urine Bacteria Digoxin 0.7 L VTE H&P Assessment - Risk for VTE Risk for VTE: Yes Risk Level: Moderate Risk Assessment Date: 12/13/17 Risk Assessment Time: 08:49 VTE Orders Placed or Will Be Placed: Yes Plan - Inpatient Certification Inpatient Certification: Admit to inpatient care: Based on my medical assessment, after consideration of patient's risk factors (age, co-morbidities and patient presenting symptoms and acuity), I expect that this patient will remain in the hospital greater than or equal to two midnights and that the services needed warrant inpatient care because: Patient Risk Factors: Recurrent pneumonia, UTI Estimated length of stay: 3 days The patient may reasonably be expected to be discharged or transferred to a hospital within 96 hours after admission to [facility]. I certify that my determination is in accordance with my understanding of Medicare requirements for reasonable and necessary inpatient services. 12/13/17 08:49 - Detailed Diagnosis and Plan (1) Pneumonia Current Visit: Yes Status: Acute Qualifiers: Pneumonia type: due to unspecified organism Laterality: bilateral Lung location: lower lobe of lung Qualified Code(s): J18.1 - Lobar pneumonia, unspecified organism Base Code: J18.9 - PNEUMONIA, UNSPECIFIED ORGANISM Comment: 12/13/17: - CXR showing: right lower lung lobe infiltrate, changes consistent with COPD. - CXR 10/11/17: small left effusion, bilateral pleural thickening and evidence of COPD, CT abdomen showing consolidation in the left lower lobe. WBCs 23k, sats > 92% on 2 liters. - IV Levaquin 500mg Q48H, BCX pending, repeat CBC w/ diff. - Follow up chest xray within 2 weeks of discharge for resolution. (2) Hypokalemia Current Visit: Yes Status: Acute Base Code: E87.6 - HYPOKALEMIA Comment: 12/13/17: - K+ 2.9 --> 4.4 after giving 40 meq IV, 40 meq PO - repeat lytes panel in the morning. (3) UTI (urinary tract infection) Current Visit: Yes Status: Acute Qualifiers: Urinary tract infection type: acute cystitis Hematuria presence: without hematuria Qualified Code(s): N30.00 - Acute cystitis without hematuria Base Code: N39.0 - URINARY TRACT INFECTION, SITE NOT SPECIFIED Comment: 10/11/17: - UA: leukocyte positive, nitrite negative, WBCs 10-15 - continue Levaquin 500mg Q48H (4) Atrial fibrillation Current Visit: No Status: Acute Qualifiers: Atrial fibrillation type: chronic Qualified Code(s): I48.2 - Chronic atrial fibrillation Base Code: I48.91 - UNSPECIFIED ATRIAL FIBRILLATION Comment: 12/13/17: - on tele monitor needs to be on the patient. - Cont Digoxin, Dialtzem and Metoprolol with holding parameters for SBP < 120, HR < 55 - anticoagualted on Xarelto for chronic a. fib. CHADsvac > 2 (5) COPD (chronic obstructive pulmonary disease) Current Visit: No Status: Acute Base Code: J44.9 - CHRONIC OBSTRUCTIVE PULMONARY DISEASE, UNSPECIFIED Comment: 12/13/17: - CXR: consistent with COPD. - titrate oxygen to maintain saturations > 92 % on 2 liters. - Albuterol nebs Q4H PRN, Breo elipta QD, (6) Dementia Current Visit: No Status: Acute Base Code: F03.90 - UNSPECIFIED DEMENTIA WITHOUT BEHAVIORAL DISTURBANCE Comment: 12/13/17: - on Namenda 10mg BID and Remeron 15 QHS - pt lacks capacity to make medical decisions. Competence to be determined by the Guardianship court. - SW consult to discuss placement. (7) HTN (hypertension) Current Visit: No Status: Acute Base Code: I10 - ESSENTIAL (PRIMARY) HYPERTENSION Comment: 12/13/17: - BP 111/53 at present. - resume home doses of Amlodipine 5mg, and Lisinopril 20mg with holding parameters for SBP < 120. (8) Hypothyroid Current Visit: Yes Status: Acute Base Code: E03.9 - HYPOTHYROIDISM, UNSPECIFIED Comment: 12/13/17: - resume Levothyroxine 25mcg daily. (9) DVT prophylaxis Current Visit: Yes Status: Acute Base Code: [id number] - Comment: 12/13/17: - pt on Xarelto for chronic A fib. (10) Full code status Current Visit: No Status: Acute Base Code: Z78.9 - OTHER SPECIFIED HEALTH STATUS Comment: 10/13/17: - FULL CODE, address code status once documentation of guardianship is obtained and put in EMR. - Disposition D/C home tomorrow on PO abx. Transition to hospice care with [facility] to discuss with SW and family.
[2017-12-13] MEDS: POTASSIUM CHLORIDE 20 MEQ TABLET PO SCH (10:21)
[2017-12-13] MEDS: MELOXICAM 7.5 MG TABLET PO SCH (10:21)
[2017-12-13] MEDS: MEMANTINE HCL 10 MG TABLET PO SCH ×2 (10:21→21:36)
[2017-12-13] MEDS: RIVAROXABAN 20 MG TABLET PO SCH (10:21)
[2017-12-13] MEDS: DIGOXIN 125 MCG TABLET PO SCH (10:21)
[2017-12-13] MEDS: AMLODIPINE BESYLATE 5MG TAB PO SCH ×2 (10:21→21:36)
[2017-12-13] MEDS: ASPIRIN 81 MG TABEC PO SCH (10:22)
[2017-12-13] MEDS: DILTIAZEM 180MG CR CAPSULE PO SCH (10:22)
[2017-12-13] MEDS: LISINOPRIL 20 MG TABLET PO SCH ×2 (10:22→21:36)
[2017-12-13] MEDS ORDERED: LEVOFLOXACIN/D5W 750 MG/150 ML BAG IVPB SCH (18:00)
[2017-12-13] MEDS ORDERED: ALBUTEROL SULFATE (0.083%) 2.5 MG/3 ML NEB INH PRN (19:26)
[2017-12-13] MEDS: MIRTAZAPINE 15 MG TABLET PO SCH (21:36)
[2017-12-14] MEDS ORDERED: BREO (FLUTICASONE/VILANTEROL) 100MCG/25MCG INHALER INH SCH (06:00)
[2017-12-14] MEDS: LEVOTHYROXINE SODIUM 25 MCG TABLET PO SCH (06:34)
[2017-12-14 06:46] LABS: BASO % 0.1 % (0-6); EOS % 0.2 % (0-6); GRAN % 67.7 % (47-80); HEMATOCRIT 32.8 % (35.0-47.0); HEMOGLOBIN 9.7 gm/dl (11.6-16.0); LYMPH % 25.7 % (16-45); MEAN CORPUSCULAR HGB CONC 29.6 g/dl (32-36); MEAN PLATELET VOLUME 9.1 fl (7.4-10.4); MONO % 6.3 % (0-9); PLATELET COUNT 281 K/uL (130-400); RED CELL DISTRIBUTION WIDTH 15.5 % (11.5-14.5)
[2017-12-14 06:53] LABS: MEAN CORPUSCULAR HEMOGLOBIN 23.6 pg (27-33)
[2017-12-14 06:58] LABS: BLOOD UREA NITROGEN 8 mg/dL (8-23); CREATININE 0.5 mg/dL (0.5-0.9); EST GLOMERULAR FILTRATION RATE > 60 mL/min; GLUCOSE,RANDOM 108 mg/dL (74-109)
[2017-12-14] MEDS: BREO (FLUTICASONE/VILANTEROL) 100MCG/25MCG INHALER INH SCH (09:49)
[2017-12-14] MEDS: POTASSIUM CHLORIDE 20 MEQ TABLET PO SCH (10:55)
[2017-12-14] MEDS: DIGOXIN 125 MCG TABLET PO SCH (10:55)
[2017-12-14] MEDS: AMLODIPINE BESYLATE 5MG TAB PO SCH ×2 (10:55→21:04)
[2017-12-14] MEDS: LISINOPRIL 20 MG TABLET PO SCH ×2 (10:55→21:04)
[2017-12-14] MEDS: RIVAROXABAN 20 MG TABLET PO SCH (10:55)
[2017-12-14] MEDS: MELOXICAM 7.5 MG TABLET PO SCH (10:55)
[2017-12-14] MEDS: MEMANTINE HCL 10 MG TABLET PO SCH ×2 (10:55→21:04)
[2017-12-14] MEDS: ASPIRIN 81 MG TABEC PO SCH (10:56)
[2017-12-14] MEDS: DILTIAZEM 180MG CR CAPSULE PO SCH (10:56)
--- NOTE | 2017-12-14 11:06 | Physician Progress Note ---
Subjective - Date Date of Physician Progress Note: 12/14/17 - Subjective Subjective Comment: 01/14/18 0930: Pt. is sitting up in bed. Nursing reports concern of worsening confusion today. Pt. refusing her IS and Breo at this time. Pt. also refused her breakfast this morning. -Levaquin 750mg q24h IV changed to PO, first dose tonight at 1900. -Specialty Manufacturing Supervisor spoke with pt's son regarding potential discharge home with home care vs. hospice, pt's son states that family was already planning to d/c to hospice. Will plan to d/c home tomorrow with hospice care. Objective - Vital Signs Vital Signs: Vital Signs - Last 24 Hrs Temp Pulse Resp BP Pulse Ox 12/14/17 08:16 89 18 12/14/17 08:10 99.0 F 96 H 18 156/71 99 12/14/17 06:00 98.7 F 97 H 20 147/74 100 12/14/17 00:34 98.8 F 93 H 20 133/62 96 12/13/17 21:00 18 12/13/17 20:30 99.0 F 88 20 137/65 95 12/13/17 18:00 97.9 F 99 H 20 166/71 100 12/13/17 14:00 99.0 F 94 H 20 111/58 94 L - General General Appearance: Alert, Cooperative, Mild distress, Other (disoriented- refusing breathing treatments and breakfast) Limitations: No limitations - Head Head exam: Normal inspection - Eye Eye exam: Normal appearance, PERRL, EOMI Pupils: Normal accommodation - ENT ENT exam: Normal exam, Mucous membranes dry, Normal external ear exam, Normal orophraynx, TM's normal bilaterally Ear exam: Normal external inspection. negative: External canal tenderness Nasal Exam: Normal inspection. negative: Discharge, Sinus tenderness Mouth exam: Normal external inspection, Tongue normal Teeth exam: Normal inspection. negative: Dental caries Throat exam: Normal inspection. negative: Tonsillar erythema, Tonsillar exudate - Neck Neck exam: Normal inspection, Full ROM. negative: Tenderness - Respiratory Respiratory exam: Decreased breath sounds (diminished right lung base). negative: Respiratory distress - Cardiovascular Cardiovascular Exam: Normal rhythm, Normal heart sounds, Tachycardia Peripheral Pulses: 2+: Radial (R), Radial (L), Dorsalis Pedis (R), Dorsalis Pedis (L) - GI/Abdominal GI/Abdominal exam: Soft, Normal bowel sounds. negative: Tenderness - Rectal Rectal exam: Deferred - exam: Deferred - Extremities Extremities exam: Normal inspection, Full ROM, Normal capillary refill. negative: Tenderness - Back Back exam: Reports: Normal inspection, Full ROM. Denies: Muscle spasm, Rash noted, Tenderness - Neurological Neurological exam: Alert, CN II-XII intact, Normal gait, Oriented X3 - Psychiatric Psychiatric exam: Normal affect, Normal mood - Skin Skin exam: Dry, Intact, Normal color, Warm Assessment and Plan - Assessment and Plan (1) Pneumonia Current Visit: Yes Status: Acute Qualifiers: Pneumonia type: due to unspecified organism Laterality: bilateral Lung location: lower lobe of lung Qualified Code(s): J18.1 - Lobar pneumonia, unspecified organism Base Code: J18.9 - PNEUMONIA, UNSPECIFIED ORGANISM Comment: 12/14/17: - CXR showing: right lower lung lobe infiltrate, changes consistent with COPD. - CXR 10/11/17: small left effusion, bilateral pleural thickening and evidence of COPD, CT abdomen showing consolidation in the left lower lobe. WBCs 23k, sats > 92% on 2 liters. - IV Levaquin 750mg changed to PO today, first dose at 1900 - Follow up chest xray within 2 weeks of discharge for resolution. (2) Hypokalemia Current Visit: Yes Status: Acute Base Code: E87.6 - HYPOKALEMIA Comment: : - K+ 3.9 (was replaced on 12/12 with 40 mEq IV K) - repeat lytes panel in the morning. (3) UTI (urinary tract infection) Current Visit: Yes Status: Acute Qualifiers: Urinary tract infection type: acute cystitis Hematuria presence: without hematuria Qualified Code(s): N30.00 - Acute cystitis without hematuria Base Code: N39.0 - URINARY TRACT INFECTION, SITE NOT SPECIFIED Comment: : - UA: leukocyte positive, nitrite negative, WBCs 10-15 - continue Levaquin 750mg PO daily for 4 more doses (4) Atrial fibrillation Current Visit: No Status: Acute Qualifiers: Atrial fibrillation type: chronic Qualified Code(s): I48.2 - Chronic atrial fibrillation Base Code: I48.91 - UNSPECIFIED ATRIAL FIBRILLATION Comment: 12/14/17: - on tele monitor needs to be on the patient. - Cont Digoxin, Dialtzem and Metoprolol with holding parameters for SBP < 120, HR < 55 - anticoagualted on Xarelto for chronic a. fib. CHADsvac > 2 (5) COPD (chronic obstructive pulmonary disease) Current Visit: No Status: Acute Base Code: J44.9 - CHRONIC OBSTRUCTIVE PULMONARY DISEASE, UNSPECIFIED Comment: 12/14/17: - CXR: consistent with COPD. - titrate oxygen to maintain saturations > 92 % on 2 liters. - Albuterol nebs Q4H PRN, Breo elipta QD, (6) Dementia Current Visit: No Status: Acute Base Code: F03.90 - UNSPECIFIED DEMENTIA WITHOUT BEHAVIORAL DISTURBANCE Comment: 12/14/17: - on Namenda 10mg BID and Remeron 15 QHS - pt lacks capacity to make medical decisions. Competence to be determined by the Guardianship court. - SW spoke with pt's son, planning to d/c home with hospice care (7) HTN (hypertension) Current Visit: No Status: Acute Base Code: I10 - ESSENTIAL (PRIMARY) HYPERTENSION Comment: 12/14/17: - BP 156/71 at present. - resume home doses of Amlodipine 5mg, and Lisinopril 20mg with holding parameters for SBP < 120. (8) Hypothyroid Current Visit: Yes Status: Acute Base Code: E03.9 - HYPOTHYROIDISM, UNSPECIFIED Comment: 12/14/17: - continue Levothyroxine 25mcg daily. (9) DVT prophylaxis Current Visit: Yes Status: Acute Base Code: [id number] - Comment: 12/14/17: - pt on Xarelto for chronic A fib. (10) Full code status Current Visit: No Status: Acute Base Code: Z78.9 - OTHER SPECIFIED HEALTH STATUS Comment: 11/13/17: - full code status Results - Labs Result Diagrams: 12/14/17 06:30 12/14/17 06:30 Labs Last 24 Hours: Laboratory Results - last 24 hr 12/14/17 12/14/17 06:30 06:30 WBC 12.0 RBC 4.10 Hgb 9.7 L Hct 32.8 L MCV 80.0 L MCH 23.6 L MCHC 29.6 L RDW 15.5 H Plt Count 281 MPV 9.1 Gran % 67.7 Lymphocytes % 25.7 Monocytes % 6.3 Eosinophils % 0.2 Basophils % 0.1 Sodium 133 L Potassium 3.9 Chloride 96 L Carbon Dioxide 23.0 Anion Gap 14.0 BUN 8 Creatinine 0.5 Estimated GFR > 60 Random Glucose 108 Calcium 9.0 DVT/PE Assessment - Risk for VTE Risk for VTE: No Risk Level: Moderate Risk Assessment Date: 12/13/17 Risk Assessment Time: 08:49 VTE Orders Placed or Will Be Placed: Yes - Active Medicaitons Current Medications: Current Medications Acetaminophen (Tylenol 325mg) 650 mg PO Q6H PRN PRN Reason: PAIN - MILD(1-4)/FEVER Albuterol Sulfate () 2.5 mg INH RESP.Q4H PRN PRN Reason: DIFFICULTY IN BREATHING Amlodipine Besylate (Norvasc) 5 mg PO BID [facility] Last Admin: 12/14/17 10:55 Dose: 5 mg Aspirin (Ecotrin (Ec)) 81 mg PO DAILY [facility] Last Admin: 12/14/17 10:56 Dose: 81 mg Digoxin (Lanoxin) 125 mcg PO DAILY [facility] Last Admin: 12/14/17 10:55 Dose: 125 mcg Diltiazem HCl (Cardizem Cd) 180 mg PO DAILY [facility] Last Admin: 12/14/17 10:56 Dose: 180 mg Levofloxacin (Levaquin Tab) 750 mg PO DAILY[facility]UOR [facility] Stop: 12/18/17 19:01 Levothyroxine Sodium (Synthroid) 25 mcg PO DAILYTHY [facility] Last Admin: 12/14/17 06:34 Dose: 25 mcg Lisinopril (Zestril) 20 mg PO BID [facility] Last Admin: 12/14/17 10:55 Dose: 20 mg Meloxicam (Mobic) 15 mg PO DAILY [facility] Last Admin: 12/14/17 10:55 Dose: 15 mg Memantine (Namenda) 10 mg PO BID [facility] Last Admin: 12/14/17 10:55 Dose: 10 mg Mirtazapine (Remeron) 15 mg PO QHS [facility] Last Admin: 12/13/17 21:36 Dose: 15 mg Potassium Chloride (Klor-Con) 20 meq PO DAILY [facility] Last Admin: 12/14/17 10:55 Dose: 20 meq Rivaroxaban (Xarelto) 20 mg PO DAILY [facility] Last Admin: 12/14/17 10:55 Dose: 20 mg AMI Plan - Labs Result Diagrams: 12/14/17 06:30 12/14/17 06:30
[2017-12-14] MEDS: MIRTAZAPINE 15 MG TABLET PO SCH (21:04)
[2017-12-14] MEDS: LEVOFLOXACIN 500 MG TABLET PO SCH (21:04)
[2017-12-15] MEDS ORDERED: LORAZEPAM 2 MG/ML VIAL IV ONE (05:32)
[2017-12-15] MEDS: LEVOFLOXACIN 500 MG TABLET PO SCH ×2 (06:33→10:13)
[2017-12-15] MEDS: LEVOTHYROXINE SODIUM 25 MCG TABLET PO SCH (06:33)
[2017-12-15 10:07] LABS: BASO % 0.3 % (0-6); EOS % 0.1 % (0-6); GRAN % 69.8 % (47-80); HEMOGLOBIN 8.6 gm/dl (11.6-16.0); LYMPH % 20.4 % (16-45); MEAN CELL VOLUME 80.1 fl (81-97); MEAN CORPUSCULAR HGB CONC 29.7 g/dl (32-36); MEAN PLATELET VOLUME 8.8 fl (7.4-10.4); MONO % 9.4 % (0-9); PLATELET COUNT 265 K/uL (130-400); RED BLOOD COUNT 3.62 M/uL (3.80-5.40); RED CELL DISTRIBUTION WIDTH 15.5 % (11.5-14.5); WHITE BLOOD COUNT W/O DIFF 6.7 K/uL (4.2-12.2)
[2017-12-15 10:14] LABS: MEAN CORPUSCULAR HEMOGLOBIN 23.7 pg (27-33)
[2017-12-15] MEDS: POTASSIUM CHLORIDE 20 MEQ TABLET PO SCH (10:15)
[2017-12-15] MEDS: AMLODIPINE BESYLATE 5MG TAB PO SCH (10:16)
[2017-12-15] MEDS: RIVAROXABAN 20 MG TABLET PO SCH ×2 (10:16→13:45)
[2017-12-15] MEDS: DILTIAZEM 180MG CR CAPSULE PO SCH ×2 (10:16→13:44)
[2017-12-15] MEDS: MELOXICAM 7.5 MG TABLET PO SCH ×2 (10:16→13:44)
[2017-12-15] MEDS: LISINOPRIL 20 MG TABLET PO SCH (10:16)
[2017-12-15] MEDS: ASPIRIN 81 MG TABEC PO SCH ×2 (10:17→13:44)
[2017-12-15] MEDS: DIGOXIN 125 MCG TABLET PO SCH ×2 (10:17→13:44)
[2017-12-15] MEDS: MEMANTINE HCL 10 MG TABLET PO SCH (10:17)
[2017-12-15 10:23] LABS: ALB/GLOB RATIO 1.3 (1.1-1.8); ALBUMIN 3.3 g/dL (4.0-5.0); ALKALINE PHOSPHATASE 46 U/L (35-104); ALT/SGPT 11 U/L (<33); AST/SGOT 11 U/L (10.0-35.0); BLOOD UREA NITROGEN 11 mg/dL (8-23); CREATININE 0.6 mg/dL (0.5-0.9); EST GLOMERULAR FILTRATION RATE > 60 mL/min; GLUCOSE,RANDOM 91 mg/dL (74-109); TOTAL PROTEIN 5.9 g/dL (6.6-8.7)
[2017-12-15] MEDS: BREO (FLUTICASONE/VILANTEROL) 100MCG/25MCG INHALER INH SCH (10:29)
--- NOTE | 2017-12-15 10:56 | Discharge Summary ---
Providers Discharge Summary Date: 12/15/17 Date of admission: 12/12/17 18:42 Expected Date of Discharge: 12/15/17 Attending physician: SHAZIA GRANDA Physical Exam - Vital Signs Vital Signs: Vital Signs - Last 24 Hrs Temp Pulse Resp BP Pulse Ox 12/15/17 06:00 98.0 F 107 H 20 126/77 95 12/15/17 01:00 97.5 F L 84 20 127/69 95 12/14/17 21:00 18 12/14/17 20:00 97.9 F 90 20 116/59 95 12/14/17 18:00 99.0 F 101 H 18 172/80 99 12/14/17 14:00 98.4 F 90 20 148/62 98 - General General Appearance: Other (Pt refusing to discuss with me this morning, she wants to sleep. ) Limitations: No limitations - Head Head exam: Normal inspection - Eye Eye exam: Normal appearance - ENT ENT exam: Normal exam, Mucous membranes moist, Normal external ear exam Ear exam: Normal external inspection. negative: External canal tenderness Nasal Exam: Normal inspection. negative: Discharge, Sinus tenderness Mouth exam: Normal external inspection, Tongue normal Teeth exam: Dental caries - Neck Neck exam: Normal inspection, Full ROM. negative: Tenderness - Respiratory Respiratory exam: Normal lung sounds bilaterally. negative: Respiratory distress - Cardiovascular Cardiovascular Exam: Regular rate, Normal rhythm, Normal heart sounds - GI/Abdominal GI/Abdominal exam: Soft, Normal bowel sounds. negative: Tenderness - Rectal Rectal exam: Deferred - exam: Deferred - Extremities Extremities exam: Normal inspection. negative: Pedal edema, Tenderness - Back Back exam: Denies: Muscle spasm - Neurological Neurological exam: Other (sedated) - Psychiatric Psychiatric exam: Agitated (annoyed, would like to remain asleep) - Skin Skin exam: Dry, Intact, Normal color, Warm Hospitalization - Hospitalization Admission Diagnosis: bilateral pneumonia, hypokalemia, uti, weakness - Hospitalization Course Disposition: Hospice care; pt to live @home Hospital Course: Mrs. Browne is a 87 y/o female with advanced dementia, chronic atrial fibrillation, hypertension and hypothyroid with presentation of increasing shortness of breath and hypoxia as reported by home visiting nurse. The details are sparse on the events prior to admission and there is no EMS run sheet in the chart. But on her previous admission 10/11/17 the patient was diagnosed with a pneumonia of the left lower lung lobe, urinary tract infection and had multiple rib fractures due to frequent falls. The patient lives at home with her son her says that he is having a difficult time caring for her due to advanced dementia. He says that she has had a cough but no shortness of breath. On presentation to [facility] ED the patient is documented has being hypoxic with a saturation of 86% on room air and tachycardic with a heart rate of 103. Her EKG showed sinus rhythm with a prolonged Qtc and chest xray showed new patchy infiltrates within the right lower lobe. The patient was started on Levaquin 750mg Q24H and admitted for further observation. 12/15: Pt was more confused. Son decided to proceed with home hospice. Pt refusing breathing treatments and breakfast. UA positive for infection. Covered with levaquin. Switched levquin to PO. 12/16: According to nursing the pt did not sleep well last night. This morning she refuses to speak to me and keeps stating that she just wants to sleep. She is uncooperative with history and exam. Hospice requesting that she have ativan and abx upon discharge. WBC count normal today. Vitals wnl except tachycardic. O2 will be provided at home per hospice. D/C home today with son. D/C aspirin and anticoagulation since going to hospice. Procedures: Imaging and X-Rays 12/12/17 16:00 CHEST 2 VIEWS [RAD] Stat Cardiology Procedures 12/12/17 15:57 EKG NOW Abnormal Labs: Abnormal Lab Results 12/12/17 12/12/17 12/12/17 Range/Units 15:00 15:26 15:26 WBC 23.0 H* (4.2-12.2) K/uL RBC (3.80-5.40) M/uL Hgb 11.3 L (11.6-16.0) gm/dl Hct (35.0-47.0) % MCV 80.1 L (81-97) fl MCH 24.1 L (27-33) pg MCHC 30.1 L (32-36) g/dl RDW 16.1 H (11.5-14.5) % Monocytes % (0-9) % Sodium 133 L (136-145) mmol/L Potassium 2.9 L* (3.4-4.5) mmol/L Chloride 90 L (98-107) mmol/L Anion Gap 18.0 H (7-16) Calcium (8.8-10.2) mg/dL Total Protein (6.6-8.7) g/dL Albumin (4.0-5.0) g/dL Urine Protein Trace H (NEGATIVE) Urine Blood Small H (NEGATIVE) Ur Leukocyte Esterase Small H (NEGATIVE) Digoxin (0.8-2.0) ng/mL 12/12/17 12/13/17 12/13/17 Range/Units 15:26 07:00 07:00 WBC 14.8 H (4.2-12.2) K/uL RBC (3.80-5.40) M/uL Hgb 9.5 L (11.6-16.0) gm/dl Hct 32.4 L (35.0-47.0) % MCV (81-97) fl MCH 23.8 L (27-33) pg MCHC 29.3 L (32-36) g/dl RDW 15.7 H (11.5-14.5) % Monocytes % (0-9) % Sodium 134 L (136-145) mmol/L Potassium (3.4-4.5) mmol/L Chloride (98-107) mmol/L Anion Gap (7-16) Calcium (8.8-10.2) mg/dL Total Protein (6.6-8.7) g/dL Albumin (4.0-5.0) g/dL Urine Protein (NEGATIVE) Urine Blood (NEGATIVE) Ur Leukocyte Esterase (NEGATIVE) Digoxin 0.7 L (0.8-2.0) ng/mL 12/14/17 12/14/17 12/15/17 Range/Units 06:30 06:30 09:54 WBC (4.2-12.2) K/uL RBC 3.62 L (3.80-5.40) M/uL Hgb 9.7 L 8.6 L (11.6-16.0) gm/dl Hct 32.8 L 29.0 L (35.0-47.0) % MCV 80.0 L 80.1 L (81-97) fl MCH 23.6 L 23.7 L (27-33) pg MCHC 29.6 L 29.7 L (32-36) g/dl RDW 15.5 H 15.5 H (11.5-14.5) % Monocytes % 9.4 H (0-9) % Sodium 133 L (136-145) mmol/L Potassium (3.4-4.5) mmol/L Chloride 96 L (98-107) mmol/L Anion Gap (7-16) Calcium (8.8-10.2) mg/dL Total Protein (6.6-8.7) g/dL Albumin (4.0-5.0) g/dL Urine Protein (NEGATIVE) Urine Blood (NEGATIVE) Ur Leukocyte Esterase (NEGATIVE) Digoxin (0.8-2.0) ng/mL 12/15/17 Range/Units 09:54 WBC (4.2-12.2) K/uL RBC (3.80-5.40) M/uL Hgb (11.6-16.0) gm/dl Hct (35.0-47.0) % MCV (81-97) fl MCH (27-33) pg MCHC (32-36) g/dl RDW (11.5-14.5) % Monocytes % (0-9) % Sodium 132 L (136-145) mmol/L Potassium (3.4-4.5) mmol/L Chloride 97 L (98-107) mmol/L Anion Gap (7-16) Calcium 8.6 L (8.8-10.2) mg/dL Total Protein 5.9 L (6.6-8.7) g/dL Albumin 3.3 L (4.0-5.0) g/dL Urine Protein (NEGATIVE) Urine Blood (NEGATIVE) Ur Leukocyte Esterase (NEGATIVE) Digoxin (0.8-2.0) ng/mL Condition at Discharge: (2) Stable Discharge Diagnosis: PNA VTE Discharge VTE Reason For No Overlap Therapy: Not Indicated (hospice) Discharge Medications - Discharge Medications Prescriptions: Levofloxacin [Levaquin] 750 mg PO DAILY 5 Days #5 tablet MDD 750 Lorazepam [Ativan] 0.5 mg PO TID PRN #30 tablet PRN Reason: Anxiety Home Medications: Ambulatory Orders Digoxin [Lanoxin] 125 mcg PO DAILY 11/17/13 [Last Taken 1 Day Ago ~12/11/17] Levothyroxine Sodium [Synthroid] 25 mcg PO DAILYTHY 11/17/13 [Last Taken 1 Day Ago ~12/11/17] Lisinopril [Prinivil] 20 mg PO BID 11/17/13 [Last Taken 1 Day Ago ~12/11/17] Memantine HCl [Namenda Xr] 28 mg PO DAILY 11/17/13 [Last Taken 1 Day Ago ~] Amlodipine Besylate [Norvasc] 5 mg PO BID 02/01/17 [Last Taken 1 Day Ago ~] Meloxicam 15 mg PO DAILY 02/01/17 [Last Taken 02/01/17] Diltiazem HCl [Diltiazem 24Hr ER] 180 mg PO DAILY 10/07/17 [Last Taken 1 Day Ago ~12/11/17] Acetaminophen [Tylenol 325Mg] 650 mg PO Q4H PRN #20 tablet 10/11/17 [Last Taken 1 Day Ago ~12/11/17] Potassium Chloride [Klor-Con] 20 meq PO DAILY #14 tab.prt.sr 10/11/17 [Last Taken Unknown] Mirtazapine [Remeron] 30 mg PO QHS 12/12/17 [Last Taken 1 Day Ago ~12/11/17] Prednisone [Prednisone 10Mg] 10 mg PO DAILY 12/12/17 [Last Taken 12/11/17 10] Levofloxacin [Levaquin] 750 mg PO DAILY 5 Days #5 tablet MDD 750 12/15/17 [Last Taken Unknown] Lorazepam [Ativan] 0.5 mg PO TID PRN #30 tablet 12/15/17 [Last Taken Unknown] Discharge Plan - Discharge Instructions Activity at Discharge: Resume Usual Activities As Tolerated Diet at Discharge: Regular Diet Instructions: Pneumonia (DC), Urinary Traction Infection in Older Adults (DC) Quality Measures - Quality Measures Quality Measures: Atrial Fibrillation & Atrial Flutter: Chronic Anticoagulation Therapy, Advance Directives, Documentation of Current Medications in Medical Record, Elder Maltreatment Screen and Follow-Up Plan, Heart Failure, Screening for High Blood Pressure and F/U Documented - Current Medications Quality Measure: Measure #130: Documentation of Current Medications Documentation of Current Medications: <Current Medications Documented/Reviewed> [G8417] - Blood Pressure Screening Quality Measure: Screening for High Blood Pressure and Follow-Up Documented Does Patient Have Any of the Following: Active Dx of HTN Blood Pressure Classification: Hypertensive Reading Systolic Measurement: 164 Diastolic Measurement: 75 Screening for High Blood Pressure: Patient Exclusion, Hx of HTN [O5664] - Atrial Fibrillation and Atrial Flutter Quality Measure: Atrial Fibrillation & Atrial Flutter: Chronic Anticoagulation Therapy Does Patient Have Any of the Following: No CHADS2 Risk Stratification: Prior Stroke/TIA or Systemic Embolism, Age 75 or Greater, Hypertension, Diabetes Mellitus, Heart Failure or Impaired LVSF Risk Stratification Summary: One or more high risk factors OR more than one moderate risk factor exists. [G8972] Anticoagulation Therapy: Not Prescribed, Reason Not Given [G8971] (hospice, no need) Patient Reason for NOT Prescribing Anticoagulant: Other Patient Reason (hospice) - Heart Failure (TEX/ARB Therapy) Quality Measure: Heart Failure Left Ventricular Systolic Function: Unknown TEX Inhibitor or ARB Therapy for LVSD: Not Eligible - Heart Failure (Beta-saundra Therapy) Quality Measure: Heart Failure Left Ventricular Systolic Function: Unknown Beta-Saundra Therapy for LVEF < 40%: Not Eligible - Advance Directives Quality Measure: Measure #47: Care Plan Advance Directives Established: Yes Advance Directives Information Provided To Patient: Declined Advance Directives on File: No Living Will: No Power of Professor Of Forest Planning: No Advance Care Planning: <Care Plan/Decision Maker Documented; Discussed & Documented> [6143F] - Elder Abuse Suspicion Index Screening: Elder Abuse Suspicion Index Screening Rely on people for bathing, dressing, shopping, banking, etc: No Prevented from getting food, clothes, medication, etc: No Made to feel shamed or threatened by someone: No Forced to sign papers or use money against will: No Feel afraid, touched in ways not wanted or hurt physically: No Poor eye contact, withdrawn, malnourished, cuts or bruises: No Screening Result: Negative result EASI Reference Information: Shira BAPTISTE, Yas C, Sanju D, Kade M.Development and validation of a tool to assist physicians identification of elder abuse: The Elder Abuse Suspicion Index (EASI ). Journal of Elder Abuse and Neglect, 2008; 20 (3): 276-300. - Elder Maltreatment Screen Quality Measures: Elder Maltreatment Screen and Follow-Up Plan Elder Maltreatment Screen: <Negative, No Follow-Up Plan Required> [G2544]
== END 2017-12-15 12:00 | disposition hospice, home (50) | DRG 194 ==
LOC: ER 15:08 → MEDSURG 18:42
PROVIDERS: ADMIT Internal Medicine; ATTEND Internal Medicine
DX: J18.9 Pneumonia, unspecified organism (principal); N39.0 Urinary tract infection, site not specified; R09.02 Hypoxemia; E87.6 Hypokalemia; R50.9 Fever, unspecified; R07.9 Chest pain, unspecified; J44.9 Chronic obstructive pulmonary disease, unspecified; I48.2 Chronic atrial fibrillation; Z79.01 Long term (current) use of anticoagulants; I10 Essential (primary) hypertension; E11.9 Type 2 diabetes mellitus without complications; E03.9 Hypothyroidism, unspecified; D64.9 Anemia, unspecified; R60.9 Edema, unspecified; R06.09 Other forms of dyspnea; Z87.891 Personal history of nicotine dependence
CPT/HCPCS: 82550; 83605; 80053; 81001; 80162; 85027; 71046; 93005; 93010; J1956; 80048; 85025; 94760; 96365; 96366; 99223; 99233; 99238; 99285